=== PATIENT | female | born 1950 | race Hispanic/Latino ===

== ENCOUNTER 2018-01-10 09:32 | Inpatient (IN) | payer MEDICARE ==
--- NOTE | 2018-01-10 10:16 | ED PDOC ---
Arrival/HPI - History of Present Illness Time/Duration: < week Symptom Onset: Gradual Symptom Course: Worsening Activities at Onset: Light Context: Home - General Chief Complaint: Lower Extremity Problem/Injury Time Seen by Provider: 01/10/18 09:39 - History of Present Illness Narrative History of Present Illness (Text): 01/10/18 10:08 This is a 67 year old female with PMH of hypertension, hypertension, and chronic venous insufficiency presenting to the ER for 6 day history of worsening left leg pain and swelling. Patient has history of chronic insufficiency in both lower legs and has been seeing Dr. Romario DPM for wound care. Patient saw her nursing specialist, Dr. Partida, on Thursday and ultrasound of her legs was negative at that time. Today, patient states pain and swelling in left leg is getting worse. She denies recent infections and trauma to her legs. She denies CP, SOB, fevers, abdominal pain, nausea, vomiting , chills, recent sickness, sick contacts at home, and recent travel. (Enrrique Talamantes) Past Medical History - Provider Review Nursing Documentation Reviewed: Yes - Infectious Disease Hx of Infectious Diseases: None - Tetanus Immunization Tetanus Immunization: Unknown - Cardiac Hx Cardiac Disorders: Yes Hx Hypertension: Yes Hx Pacemaker: No Hx Peripheral Vascular Disease: Yes Other/Comment: HEMOSIDEROSIS BLE - Pulmonary Hx Respiratory Disorders: No - Neurological Hx Neurological Disorder: No - HEENT Hx HEENT Disorder: Yes Hx Cataracts: Yes - Renal Hx Renal Disorder: No - Endocrine/Metabolic Hx Endocrine Disorders: Yes Hx Diabetes Mellitus Type 2: Yes (PRE DIABETES, NO MEDICATIONS) Hx Hyperthyroidism: Yes - Hematological/Oncological Hx Blood Disorders: No Hx Blood Transfusions: No - Integumentary Hx Dermatological Disorder: Yes Hx Cellulitis: Yes (BLE) Other/Comment: CHRONIC NON HEALING WOUNDS BLE, HAS OPEN WOUNDS LEFT ANKLE AT PRESENT. - Musculoskeletal/Rheumatological Hx Musculoskeletal Disorders: Yes Hx Back Pain: Yes Hx Falls: No Hx Fractures: No Hx Osteoarthritis: Yes Other/Comment: SCIATICA - Gastrointestinal Hx Gastrointestinal Disorders: Yes Hx Gastritis: Yes Hx Gastroesophageal Reflux: Yes - Genitourinary/Gynecological Hx Genitourinary Disorders: No - Psychiatric Hx Psychophysiologic Disorder: No Hx Anxiety: No Hx Depression: No Hx Substance Use: No - Surgical History Hx Cataract Extraction: Yes Other/Comment: right ankle tendon, cataract - Anesthesia Hx Anesthesia: Yes Hx Anesthesia Reactions: No Hx Malignant Hyperthermia: No - Suicidal Assessment Feels Threatened In Home Enviroment: No Family/Social History - Physician Review Nursing Documentation Reviewed: Yes Family/Social History: Unknown Family HX Smoking Status: Never Smoked Hx Alcohol Use: No Hx Substance Use: No Hx Substance Use Treatment: No Allergies/Home Meds Allergies/Adverse Reactions: Allergies No Known Allergies Allergy (Verified 01/18/18 21:09) Review of Systems - Physician Review All systems were reviewed & negative as marked: Yes - Review of Systems Constitutional: Normal. absent: Fevers Eyes: Normal. absent: Vision Changes ENT: Normal. absent: Hearing Changes Respiratory: Normal. absent: SOB, Cough Cardiovascular: Normal. absent: Chest Pain, Palpitations Gastrointestinal: Normal. absent: Abdominal Pain, Vomiting Genitourinary Female: Normal Musculoskeletal: Normal Skin: Other (swelling and pain in left leg) Neurological: Normal. absent: Focal Weakness Endocrine: Normal Hemo/Lymphatic: Normal Psychiatric: Normal Physical Exam Vital Signs Reviewed: Yes Temperature: Afebrile Blood Pressure: Normal Pulse: Regular Respiratory Rate: Normal Appearance: Positive for: Well-Appearing, Non-Toxic, Comfortable Pain Distress: None Mental Status: Positive for: Alert and Oriented X 3 - Systems Exam Head: Present: Atraumatic, Normocephalic Pupils: Present: PERRL Extroacular Muscles: Present: EOMI Conjunctiva: Present: Normal Mouth: Present: Moist Mucous Membranes Neck: Present: Normal Range of Motion Respiratory/Chest: Present: Clear to Auscultation, Good Air Exchange. No: Respiratory Distress, Accessory Muscle Use Cardiovascular: Present: Regular Rate and Rhythm, Normal S1, S2. No: Murmurs Abdomen: No: Tenderness, Distention, Peritoneal Signs Back: Present: Normal Inspection Upper Extremity: Present: Normal Inspection. No: Cyanosis, Edema Lower Extremity: Present: Edema, Other (venous insifficency in both legs. left leg is tender, swollen and edematous with ulcerations present. pulse difficult to palpate in left leg due to swelling. pulse is +2 in right leg. Sensation is diminished in left leg compared to right. ) Neurological: Present: Speech Normal, Motor Func Grossly Intact Skin: Present: Warm, Dry, Normal Color. No: Rashes Psychiatric: Present: Alert, Oriented x 3, Normal Insight, Normal Concentration Vital Signs Temp Pulse Resp BP Pulse Ox 01/10/18 15:15 69 17 117/40 L 95 01/10/18 13:30 63 17 114/53 L 94 L 01/10/18 09:58 98.3 F 61 19 104/54 L 95 01/10/18 09:48 98.3 F 63 19 104/54 L 96 Medical Decision Making ED Course and Treatment: 01/10/18 10:19 Impression: This is a 67 year old female with PMH of hypertension, hypertension , and chronic venous insufficiency presenting to the ER for 6 day history of worsening left leg pain and swelling. Differential not limited to: Cellulitis vs Chronic venous insufficiency vs Compartment syndrome vs DVT Plan: Ultrasound is negative for DVT. D-dimer is elevated but patient is having no CP , SOB and vital signs are stable at this time. Will begin vancomycin drip for cellulitis. -Ultrasound of B/L lower extremities -CBC, CMP -D-dimer, PT, PTT -Cardiac ISO -VBG, lactate -Blood culture x2 -U/A, culture Progress: 01/10/18 12:10 (Enrrique Talamantes) 01/10/18 19:00 Patient seen and evaluated with medical support assistant. History supplemented by daughter who is at bedside and translated. Patient has UNILATERAL left leg swelling and redness with ulcer, drainage. Skin is warm. Exam NOT consistent with acute arterial injury. ULTRASOUND IS NEGATIVE FOR DVT. Suspect cellulitis for unilteral swelling and redness. Abdomen nontender with no lower abdominal palpable masses. SHE ADMANTLY DENIES ANY CHEST PAIN OR SHORTNESS OF BREATH WITH REPEATED EVALUATIONS. I communicated with PMD Dr. Strong of elevated Ddimer, although patient HAS NO CHEST PAIN, NO SHORTNESS OF BREATH, no dyspnea. Dr. Strong will follow-up with this ddimer result Patient has been admitted. She has had no chest pain or dyspnea at any point. EKG and chest xray will be ordered by Dr. Strong as needed. This was reviewed with her at 1845. (Favian Kraus) - Lab Interpretations Microbiology Results: Microbiology Results 01/10/18 10:27 Blood Blood Culture - Final NO GROWTH AFTER 5 DAYS 01/10/18 10:27 Blood Gram Stain - Final TEST NOT PERFORMED 01/10/18 10:27 Blood Blood Culture - Final NO GROWTH AFTER 5 DAYS 07/15/18 10:27 Blood Gram Stain - Final TEST NOT PERFORMED Lab Results: 01/10/18 10:27 01/10/18 10:27 Lab Results 01/10/18 10:27: Sodium 138, Chloride 98, Potassium 4.4, Carbon Dioxide 30, Anion Gap 15, BUN 18, Creatinine 0.8, Est GFR ( Amer) > 60, Est GFR (Non- Af Amer) > 60, Random Glucose 101, Calcium 8.8, Total Bilirubin 1.1, AST 66 H, ALT 89 H, Alkaline Phosphatase 166 H, Lactate Dehydrogenase 562, Total Creatine Kinase 47, Troponin I < 0.01, Total Protein 6.9, Albumin 3.6, Globulin 3.4, Albumin/Globulin Ratio 1.1 01/10/18 10:27: WBC 11.7 H, RBC 4.14, Hgb 11.0 L, Hct 32.3 L, MCV 78.0 L, MCH 26.6, MCHC 34.1, RDW 15.1 H, Plt Count 234, MPV 10.7, Gran % 80.5 H, Lymph % ( Auto) 10.2 L, Haines % (Auto) 7.9 H, Eos % (Auto) 1.1 L, Baso % (Auto) 0.3, Gran # 9.39 H, Lymph # (Auto) 1.2, Haines # (Auto) 0.9 H, Eos # (Auto) 0.1, Baso # ( Auto) 0.03 01/10/18 10:27: pO2 26 L, VBG pH 7.35, VBG pCO2 55.0, VBG HCO3 30.4 H, VBG Total CO2 32.1 H, VBG O2 Sat (Calc) 52.3, VBG Base Excess 3.4 H, VBG Potassium 4.3, Sodium 135.0, Chloride 101.0, Glucose 101, Lactate 1.1, FiO2 21.0, Venous Blood Potassium 4.3 01/10/18 10:27: PT 15.1 H, INR 1.31 H, APTT 25.5, D-Dimer, Quantitative 1910 H - RAD Interpretation Radiology Orders: 01/10/18 10:03 DUPLEX LOWER EXTRM VEIN BILAT [US] Stat - Medication Orders Current Medication Orders: Discontinued Medications Aspirin (Aspirin Chewable) 81 mg PO DAILY [facility] Last Admin: 01/18/18 10:15 Dose: 81 mg Diphenhydramine HCl (Benadryl) 25 mg PO HS PRN PRN Reason: Insomnia Last Admin: 01/17/18 23:54 Dose: 25 mg Docusate Sodium (Colace) 100 mg PO DAILY [facility] Last Admin: 01/18/18 10:16 Dose: 100 mg Last Bowel Movement Document 01/18/18 10:16 MCV (Rec: 01/18/18 10:16 MCV [id number]) Last Bowel Movement Last Bowel Movement 01/17/18 Enoxaparin Sodium (Lovenox) 40 mg SC DAILY [facility] PRN Reason: Protocol Last Admin: 01/18/18 10:26 Dose: 40 mg Subcutaneous Administrations Document 01/18/18 10:26 MCV (Rec: 01/18/18 10:26 MCV [id number]) Injection Site [facility] Injection Site Right Abdomen Charges for Administration # of Subcutaneous Administrations 1 Ferrous Sulfate (Feosol) 324 mg PO TID [facility] Last Admin: 01/18/18 17:02 Dose: 324 mg Furosemide (Lasix) 40 mg PO DAILY [facility] Last Admin: 01/18/18 10:23 Dose: Not Given Non-Admin Reason: BP Parameters Not Met [facility] Blood Pressure Document 01/18/18 10:23 MCV (Rec: 01/18/18 10:25 MCV [id number]) Blood Pressure Blood Pressure (100/60-150/90) 119/54 Home Med (Home Med) 1 unit PO [facility] Last Admin: 01/17/18 22:57 Dose: Hydromorphone HCl (Dilaudid) 0.5 mg IVP Q4H PRN PRN Reason: Pain, severe (8-10) Last Admin: 01/16/18 00:38 Dose: 0.5 mg MAR Pain Assessment Document 01/16/18 00:38 PCO (Rec: 01/16/18 00:39 PCO [id number]) Pain Reassessment Is this a pain reassessment? No Sleep Is patient sleeping during reassessment? No Presence of Pain Presence of Pain Yes Pain Scale Used Pain Scale Used Numeric Location Left, Right or Bilateral Left Pain Location Body Site Leg Description Description Intermittent Intensity of Pain at present 8 Acceptable Level of Pain 0/10 Variations/Patterns sharp Pain Behavior Moaning Facial Grimacing Aggravating Factors Changing Position Exercise/Activity Alleviating Factors/Management Medication Techniques Relaxation Techniques Inactivity Alleviating Factors Medication Effects of Pain can't sleep IVP Administration Document 01/16/18 00:38 PCO (Rec: 01/16/18 00:39 PCO [id number]) Charges for Administration # of IVP Administrations 1 Re-Assess: JACK Pain Assessment Document 01/16/18 01:38 PCO (Rec: 01/16/18 03:56 PCO [id number]) Pain Reassessment Is this a pain reassessment? Yes Sleep Is patient sleeping during reassessment? No Presence of Pain Presence of Pain No Hydromorphone HCl (Dilaudid) 0.5 mg IVP Q15MIN PRN PRN Reason: Pain, moderate (4-7) Stop: 01/14/18 09:50 Last Admin: 01/14/18 08:50 Dose: 0.5 mg Vancomycin HCl (Vancomycin 1gm) 1 gm in 250 mls @ 167 mls/hr IVPB STAT STA PRN Reason: Protocol Stop: 01/10/18 13:40 Last Admin: 01/10/18 12:32 Dose: 167 mls/hr eMAR Start Stop Document 01/10/18 12:32 MR (Rec: 01/10/18 12:32 MR [id number]) Intravenous Solution Start Date 01/10/18 Start Time 12:32 End Date 01/10/18 End time 14:02 Total Infusion Time 90 Vancomycin HCl (Vancomycin 1gm) 1 gm in 250 mls @ 167 mls/hr IVPB Q12H [facility] PRN Reason: Protocol Last Admin: 01/18/18 17:02 Dose: 167 mls/hr eMAR Start Stop Document 01/18/18 17:02 CV (Rec: 01/18/18 17:02 CV [id number]) Intravenous Solution Start Date 01/18/18 Start Time 17:02 Cefepime HCl (Maxipime 1gm) 1 gm in 100 mls @ 100 mls/hr IVPB Q12 [facility] PRN Reason: Protocol Last Admin: 01/18/18 10:15 Dose: 100 mls/hr eMAR Start Stop Document 01/18/18 10:15 MCV (Rec: 01/18/18 10:15 MCV [id number]) Intravenous Solution Start Date 01/18/18 Start Time 10:15 Dextrose/Sodium Chloride (Dextrose 5%/0.9% Ns 1000 Ml) 1,000 mls @ 115 mls/hr IV .Q8H42M [facility] Last Admin: 01/15/18 05:31 Dose: 115 mls/hr eMAR Start Stop Document 01/15/18 05:31 PCO (Rec: 01/15/18 05:31 PCO [id number]) Intravenous Solution Start Date 01/15/18 Start Time 04:00 End Date 01/15/18 End time 12:45 Total Infusion Time 525 Ibuprofen (Motrin Tab) 400 mg PO Q6H PRN PRN Reason: Fever >100.4 F Last Admin: 01/13/18 20:58 Dose: 400 mg MAR Pain/Vitals Document 01/13/18 20:58 PCO (Rec: 01/13/18 20:58 PCO [facility] [id number]) Pain Reassessment Is This A Pain ReAssessment? No Sleep Is patient sleeping during reassessment? No Presence of Pain Presence of Pain Yes Pain Scale Used Pain Scale Used Numeric Location Pain Location Body Copyist Description Intermittent Intensity 7 Scale Used Numeric Radiation Location no Pain Behavior Grasping Site Facial Grimacing Re-Assess: [facility] Pain/Vitals Document 01/13/18 21:58 PCO (Rec: 01/14/18 01:03 PCO [id number]) Pain Reassessment Is This A Pain ReAssessment? Yes Sleep Is patient sleeping during reassessment? No Presence of Pain Presence of Pain No Lisinopril (Zestril) 20 mg PO DAILY [facility] Last Admin: 01/18/18 10:27 Dose: Not Given Non-Admin Reason: BP Parameters Not Met [facility] Pulse and Blood Pressure Document 01/18/18 10:27 MCV (Rec: 01/18/18 10:27 MCV [facility] [id number]) Pulse Pulse Rate (60-90) 59 Blood Pressure Blood Pressure (100/60-150/90) 119/54 Methimazole (Tapazole) 5 mg PO MWF [facility] Last Admin: 01/18/18 10:16 Dose: 5 mg Metoprolol Tartrate (Lopressor) 50 mg PO HS [facility] Last Admin: 01/17/18 21:56 Dose: 50 mg MAR Pulse and Blood Pressure Document 01/17/18 21:56 BN (Rec: 01/17/18 21:56 BN [id number]) Pulse Pulse Rate (60-90) 63 Blood Pressure Blood Pressure (100/60-150/90) 138/81 Morphine Sulfate (Morphine) 4 mg IVP Q4H PRN PRN Reason: Pain, severe (8-10) Mupirocin (Bactroban Ointment) 0 gm TOP BID [facility] Last Admin: 01/18/18 17:25 Dose: 1 applic Ondansetron HCl (Zofran Inj) 4 mg IVP Q6H PRN PRN Reason: Nausea/Vomiting Last Admin: 01/14/18 20:05 Dose: 4 mg IVP Administration Document 01/14/18 20:05 PCO (Rec: 01/14/18 20:06 PCO [facility] [id number]) Charges for Administration # of IVP Administrations 1 Tramadol HCl (Ultram) 50 mg PO Q4H PRN PRN Reason: Pain, moderate (4-7) Last Admin: 01/18/18 05:49 Dose: 50 mg MAR Pain Assessment Document 01/18/18 05:49 BN (Rec: 01/18/18 05:50 BN [id number]) Pain Reassessment Is this a pain reassessment? No Presence of Pain Presence of Pain Yes Pain Scale Used Pain Scale Used Numeric Location Left, Right or Bilateral Right Pain Location Body Site Leg Description Description Constant Intensity of Pain at present 7 Pain Behavior Restlessness Alleviating Factors/Management Medication Techniques Alleviating Factors Medication - PA / [employer] / Resident Statement / has reviewed & agrees with the documentation as recorded. /DO has examined the patient and agrees with the treatment plan. Disposition/Present on Arrival - Present on Arrival Any Indicators Present on Arrival: No History of DVT/PE: No History of Uncontrolled Diabetes: No Urinary Catheter: No History of Decub. Ulcer: No History Surgical Site Infection Following: None - Disposition Have Diagnosis and Disposition been Completed?: Yes Disposition Time: 20:00 - Disposition Diagnosis: Cellulitis Disposition: HOSPITALIZED Condition: FAIR
[2018-01-10 10:34] LABS: BASO # 0.03 K/mm3 (0.0-2.0); BASO % 0.3 % (0.0-3.0); EOS # 0.1 (0.0-0.7); EOS % 1.1 % (1.5-5.0); GRAN # 9.39 (1.4-6.5); GRAN % 80.5 % (50.0-68.0); LYMPH # 1.2 (1.2-3.4); LYMPH % 10.2 % (22.0-35.0); MEAN CORPUSCULAR HEMOGLOBIN 26.6 pg (25.0-35.0); MEAN CORPUSCULAR HGB CONC 34.1 g/dl (31.0-37.0); MEAN PLATELET VOLUME 10.7 fl (7.0-11.0); MONO # 0.9 (0.1-0.6); MONO % 7.9 % (1.0-6.0); RBC 4.14 10^6/uL (3.5-6.1); RED CELL DISTRIBUTION WIDTH 15.1 % (11.5-14.5); WHITE BLOOD COUNT 11.7 10^3/ul (4.5-11.0)
[2018-01-10 10:36] LABS: VENOUS BLOOD GAS BASE EXCESS 3.4 mmol/L (0.0-2.0); VENOUS BLOOD GAS PO2 26 mm/Hg (30-55); VENOUS BLOOD PH 7.35 (7.32-7.43)
[2018-01-10 10:44] LABS: ALB/GLOB RATIO 1.1 (1.1-1.8); ALBUMIN 3.6 g/dL (3.0-4.8); ALT/SGPT 89 U/L (7-56); AST/SGOT 66 U/L (14-36); BLOOD UREA NITROGEN 18 mg/dL (7-21); CALCIUM 8.8 mg/dL (8.4-10.5); GFR AFRICAN-AMERICAN > 60; GFR NON-AFRICAN AMERICAN > 60
[2018-01-10 10:46] LABS: INR 1.31 (0.93-1.08); PARTIAL THROMBOPLASTIN TIME 25.5 Seconds (25.1-36.5); PROTHROMBIN TIME 15.1 SECONDS (9.4-12.5)
[2018-01-10 10:55] LABS: TROPONIN I < 0.01 ng/mL
[2018-01-10] MEDS ORDERED: Vancomycin 1gm in NS 250ml 1 GM/250 ML BAG IVPB STA (12:11)
--- NOTE | 2018-01-10 14:23 | US ---
HISTORY: Leg pain and swelling. Evaluate for DVT PHYSICIAN(S): Miguel Olivo MD. TECHNIQUE: Duplex sonography and color-flow Doppler with graded compression were used to evaluate the deep venous systems of both lower extremities. The exam is limited by body habitus and edema. FINDINGS: The visualized deep venous systems of both lower extremities are sonographically normal and compressible. Normal wave forms and augmentation are seen. There is no sonographic evidence for deep venous thrombosis in the visualized segments of both lower extremities. IMPRESSION: No sonographic evidence for deep venous thrombosis in the visualized segments of both lower extremities.
[2018-01-10 15:58] LABS: URINE BILIRUBIN NEGATIVE (NEGATIVE); URINE BLOOD LARGE (NEGATIVE); URINE GLUCOSE (UA) NEGATIVE (NEGATIVE); URINE LEUKOCYTE ESTERASE NEGATIVE Leu/uL (NEGATIVE); URINE PROTEIN NEGATIVE mg/dL (<30 mg/dL); URINE UROBILINOGEN 0.2 E.U./dL (<1 E.U./dL)
[2018-01-10 16:00] LABS: URINE APPEARANCE CLEAR (CLEAR); URINE COLOR YELLOW (YELLOW)
[2018-01-10 16:44] LABS: URINE BACTERIA MOD (NEG); URINE WBC 20 - 25 /hpf (0-6)
--- NOTE | 2018-01-10 17:07 | CP.PCM.CON ---
History of Present Illness - History of Present Illness History of Present Illness: Infectious Disease Consultation: January 10, 2018 67 year old female with PMH of hypertension and chronic venous insufficiency presenting to the ER for 6 day history of worsening left leg pain and swelling. Patient has history of chronic insufficiency in both lower legs and has been seeing Dr. Romario DPM for wound care. 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 Partida, on Thursday and ultrasound of her legs was negative at that time. Today , patient states pain and swelling in left leg was worsening. She denies recent infections and trauma to her legs. She denies CP, SOB, fevers, abdominal pain, nausea, vomiting, chills, recent sickness, sick contacts at home, and recent travel. PMHx: HTN, PVD, Cataracts, Sciatica, Hyperthyroidism. PSHx: Cataract surgery, right ankle tendon repair. Allergies: NKDA Social Hx: No tobacco, EtOH, or illicit drug use Medications: Pravastatin, Metoprolol, Tapazole, Lisinopril, Furosemide, Ciprofloxacin, ASA, Ncvvnconosmaug-Nvauoolxexdfgk-Czgo pill Family Hx: none given ROS: No fevers, chills, nausea, vomiting, diarrhea, headaches, dizziness, chest pain , abdominal pain, melena, hematuria, hematemesis, hematochezia, depression, anxiety Patient with left lower leg pain. Past Patient History - Infectious Disease Hx of Infectious Diseases: None - Tetanus Immunizations Tetanus Immunization: Unknown - Past Medical History & Family History Past Medical History?: Yes - Past Social History Smoking Status: Never Smoked - CARDIAC Hx Cardiac Disorders: Yes Hx Hypertension: Yes Hx Pacemaker: No Hx Peripheral Vascular Disease: Yes Other/Comment: HEMOSIDEROSIS BLE - PULMONARY Hx Respiratory Disorders: No - NEUROLOGICAL Hx Neurological Disorder: No - HEENT Hx HEENT Problems: Yes Hx Cataracts: Yes - RENAL Hx Chronic Kidney Disease: No - ENDOCRINE/METABOLIC Hx Endocrine Disorders: Yes Hx Diabetes Mellitus Type 2: Yes (PRE DIABETES, NO MEDICATIONS) Hx Hyperthyroidism: Yes - HEMATOLOGICAL/ONCOLOGICAL Hx Blood Disorders: No Hx Blood Transfusions: No - INTEGUMENTARY Hx Dermatological Problems: Yes Hx Cellulitis: Yes (BLE) Other/Comment: CHRONIC NON HEALING WOUNDS BLE, HAS OPEN WOUNDS LEFT ANKLE AT PRESENT. - MUSCULOSKELETAL/RHEUMATOLOGICAL Hx Musculoskeletal Disorders: Yes Hx Back Pain: Yes Hx Falls: No Hx Fractures: No Hx Osteoarthritis: Yes Other/Comment: SCIATICA - GASTROINTESTINAL Hx Gastrointestinal Disorders: Yes Hx Gastritis: Yes Hx Gastroesophageal Reflux: Yes - GENITOURINARY/GYNECOLOGICAL Hx Genitourinary Disorders: No - PSYCHIATRIC Hx Psychophysiologic Disorder: No Hx Anxiety: No Hx Depression: No Hx Substance Use: No - SURGICAL HISTORY Hx Cataract Extraction: Yes Other/Comment: right ankle tendon, cataract - ANESTHESIA Hx Anesthesia: Yes Hx Anesthesia Reactions: No Hx Malignant Hyperthermia: No Meds Allergies/Adverse Reactions: Allergies Allergy/AdvReac Type Severity Reaction Status Date / Time No Known Allergies Allergy Verified 01/10/18 10:01 Physical Exam - Constitutional Appears: Non-toxic, No Acute Distress, Chronically Ill - Head Exam Head Exam: ATRAUMATIC, NORMOCEPHALIC - Eye Exam Eye Exam: EOMI, PERRL Pupil Exam: NORMAL ACCOMODATION, PERRL - ENT Exam ENT Exam: Mucous Membranes Moist, Normal External Ear Exam, TM's Normal Bilaterally - Neck Exam Neck exam: Positive for: Full Rom, Normal Inspection - Respiratory Exam Respiratory Exam: Clear to Auscultation Bilateral, NORMAL BREATHING PATTERN. absent: Rales, Rhonchi, Wheezes - Cardiovascular Exam Cardiovascular Exam: REGULAR RHYTHM, RRR, +S1, +S2 - GI/Abdominal Exam GI & Abdominal Exam: Normal Bowel Sounds, Soft. absent: Distended, Tenderness - Extremities Exam Extremities exam: Positive for: full ROM, joint swelling, pedal edema Additional comments: left leg is tender, swollen, erythematous, and edematous with ulcerations present. pulse difficult to palpate in left leg due to swelling. pulse is +2 in right leg. Sensation is diminished in left leg compared to right. Still with chronic venous stasis changes to both legs that started 4 years ago. Elephantiasis changes to the anterior and lateral portions of lower legs bilaterally and ankles. - Neurological Exam Neurological exam: Alert, CN II-XII Intact, Oriented x3 - Psychiatric Exam Psychiatric exam: Normal Affect, Normal Mood - Skin Skin Exam: Erythema Additional comments: left leg is tender, swollen, erythematous, and edematous with ulcerations present. pulse difficult to palpate in left leg due to swelling. pulse is +2 in right leg. Sensation is diminished in left leg compared to right Results - Vital Signs Recent Vital Signs: Last Vital Signs Temp 98.3 F 07/15/18 09:58 Pulse 69 01/10/18 16:23 Resp 17 01/10/18 16:23 BP 117/40 L 01/10/18 16:23 Pulse Ox 95 01/10/18 16:23 - Labs Result Diagrams: 01/10/18 10:27 01/10/18 10:27 Labs: Laboratory Results - last 24 hr 01/10/18 15:15 Urine Color Yellow Urine Appearance Clear Urine pH 6.0 Ur Specific Center 1.020 Urine Protein Negative Urine Glucose (UA) Negative Urine Ketones Negative Urine Blood Large H Urine Nitrate Negative Urine Bilirubin Negative Urine Urobilinogen 0.2 Ur Leukocyte Esterase Negative Urine RBC 2 - 5 Urine WBC 20 - 25 Ur Epithelial Cells 1 - 3 Urine Bacteria Mod Assessment & Plan - Assessment and Plan (Free Text) Assessment: 67 yo female with PVD of the lower extremities and history of HTN presenting with erythema, edema, pain, and tenderness to the left leg with open ulcerations and swelling of the same leg. Given one dose of Vancomycin IV. Supportive care. Will continue with Vancomycin and Cefepime IV at this time. No history of renal insufficiency. Right ankle tendon repair in April 2017. Outward signs of peripheral vascular disease. Thank you for allowing me to participate in the care of the patient, we will follow with you.
[2018-01-10 17:37] VITALS: BMI 34.3
[2018-01-10] MEDS: Vancomycin 1gm in NS 250ml 1 GM/250 ML BAG IVPB SCH (18:10)
[2018-01-10] MEDS ORDERED: Iodixanol 320 MG/ML 100 ML BOTTLE IV ONE (20:01)
[2018-01-10] MEDS: Cefepime 1gm in NS 100ml 1 GM/100 ML BAG IVPB SCH (22:21)
[2018-01-10] MEDS: PRAVASTATIN 40MG PO SCH (22:33)
[2018-01-11] MEDS: Vancomycin 1gm in NS 250ml 1 GM/250 ML BAG IVPB SCH ×3 (06:04→18:30)
[2018-01-11 07:14] LABS: HEMOGLOBIN 10.7 g/dL (12.0-16.0); MEAN CELL VOLUME 77.9 fl (80.0-105.0); MEAN CORPUSCULAR HEMOGLOBIN 26.2 pg (25.0-35.0); MEAN CORPUSCULAR HGB CONC 33.6 g/dl (31.0-37.0); MEAN PLATELET VOLUME 11.2 fl (7.0-11.0); RBC 4.08 10^6/uL (3.5-6.1); RED CELL DISTRIBUTION WIDTH 15.1 % (11.5-14.5); WHITE BLOOD COUNT 11.9 10^3/ul (4.5-11.0)
[2018-01-11 07:35] LABS: BLOOD UREA NITROGEN 17 mg/dL (7-21); CALCIUM 8.1 mg/dL (8.4-10.5); GFR AFRICAN-AMERICAN > 60; GFR NON-AFRICAN AMERICAN > 60; HDL CHOLESTEROL 29 mg/dL (29-60)
[2018-01-11 07:45] LABS: LDL CHOLESTEROL 73 mg/dL (0-129)
[2018-01-11 07:48] LABS: IRON 27 ug/dL (45-180)
[2018-01-11 07:58] LABS: % IRON SATURATION 13 % (20-55); TOTAL IRON BINDING CAPACITY 218 ug/dL (265-497)
--- NOTE | 2018-01-11 08:24 | HP ---
CHIEF COMPLAINTS: Left leg pain and swelling. HISTORY OF PRESENT ILLNESS: Ms. Xenia Hall, 67-year-old female with past medical history of hypertension, chronic venous insufficiency. Came to the emergency room for 6 days' history of worsening left leg pain and swelling. The patient has history of chronic insufficiency in the both lower legs and has been seen by Dr. Fischer for wound care. The patient saw her english professor, Dr. Partida on Thursday and ultrasound of her legs was negative. Today, the patient states the pain and swelling of the left leg worsening. She denies recent infection to her legs. She denies chest pain, shortness of breath, fever, abdominal pain, nausea, vomiting, chills, recent sick contact at home and recent travel. PAST MEDICAL HISTORY: Hypertension, PVD, cataracts, sciatica, hyperthyroidism, cataract surgery, right ankle tendon repair. ALLERGIES: THE PATIENT IS NOT ALLERGIC WITH ANY MEDICATIONS. HABITS: No smoking. No drugs. No ethanol. HOME MEDICATIONS: Pravastatin, metoprolol, Tapazole, lisinopril, furosemide, ciprofloxacin, aspirin, dihydrocodeine, acetaminophen. FAMILY HISTORY: Father and mother, noncontributory. REVIEW OF SYSTEMS: The patient was seen and examined on the bedside, looking comfortable. No nausea, vomiting, diarrhea. No hematuria or hematochezia. Prema Strong MD
--- NOTE | 2018-01-11 08:51 | RAD ---
Date of service: 01/10/2018 HISTORY: medical clearance COMPARISON: 06/30/2014 FINDINGS: LUNGS: No active pulmonary disease. PLEURA: No significant pleural effusion identified, no pneumothorax apparent. CARDIOVASCULAR: Mild cardiomegaly and mild vascular congestion OSSEOUS STRUCTURES: No significant abnormalities. VISUALIZED UPPER ABDOMEN: Normal. OTHER FINDINGS: None. IMPRESSION: Mild cardiomegaly and mild vascular congestion
[2018-01-11] MEDS: Cefepime 1gm in NS 100ml 1 GM/100 ML BAG IVPB SCH ×2 (10:10→21:48)
[2018-01-11] MEDS: methIMAzole 5 MG TAB PO SCH (10:10)
--- NOTE | 2018-01-11 10:17 | CARD ---
APPROVED REPORT Date of service: 01/10/2018 EKG Measurement Heart [id number] <Conclusion> Normal sinus rhythm Possible Left atrial enlargement Borderline ECG
--- NOTE | 2018-01-11 10:27 | CP.PCM.CON ---
History of Present Illness - History of Present Illness History of Present Illness: CC: Leg pain HPI: 67 year old female with chronic medical problsm 1. HTN is chronic and stable on metoprolol, lisinopril and lasix 2. Hyperthryoid on tapazol 3. Venous insufficiency now decompensated with cellulitis on top of severe venous statsis dermatitis Severe pain in left leg, denies constitutional symptoms. Review of Systems - Review of Systems All systems: reviewed and no additional remarkable complaints except Past Patient History - Infectious Disease Hx of Infectious Diseases: None - Tetanus Immunizations Tetanus Immunization: Unknown - Past Medical History & Family History Past Medical History?: Yes - Past Social History Smoking Status: Never Smoked - CARDIAC Hx Cardiac Disorders: Yes Hx Hypertension: Yes Hx Pacemaker: No Hx Peripheral Vascular Disease: Yes Other/Comment: HEMOSIDEROSIS BLE - PULMONARY Hx Respiratory Disorders: No - NEUROLOGICAL Hx Neurological Disorder: No - HEENT Hx HEENT Problems: Yes Hx Cataracts: Yes - RENAL Hx Chronic Kidney Disease: No - ENDOCRINE/METABOLIC Hx Endocrine Disorders: Yes Hx Diabetes Mellitus Type 2: Yes (PRE DIABETES, NO MEDICATIONS) Hx Hyperthyroidism: Yes - HEMATOLOGICAL/ONCOLOGICAL Hx Blood Disorders: No Hx Blood Transfusions: No - INTEGUMENTARY Hx Dermatological Problems: Yes Hx Cellulitis: Yes (BLE) Other/Comment: CHRONIC NON HEALING WOUNDS BLE, HAS OPEN WOUNDS LEFT ANKLE AT PRESENT. - MUSCULOSKELETAL/RHEUMATOLOGICAL Hx Musculoskeletal Disorders: Yes Hx Back Pain: Yes Hx Falls: No Hx Fractures: No Hx Osteoarthritis: Yes Other/Comment: SCIATICA - GASTROINTESTINAL Hx Gastrointestinal Disorders: Yes Hx Gastritis: Yes Hx Gastroesophageal Reflux: Yes - GENITOURINARY/GYNECOLOGICAL Hx Genitourinary Disorders: No - PSYCHIATRIC Hx Psychophysiologic Disorder: No Hx Anxiety: No Hx Depression: No Hx Substance Use: No - SURGICAL HISTORY Hx Cataract Extraction: Yes Other/Comment: right ankle tendon, cataract - ANESTHESIA Hx Anesthesia: Yes Hx Anesthesia Reactions: No Hx Malignant Hyperthermia: No Meds Allergies/Adverse Reactions: Allergies Allergy/AdvReac Type Severity Reaction Status Date / Time No Known Allergies Allergy Verified 01/10/18 10:01 - Medications Medications: Current Medications Aspirin (Aspirin Chewable) 81 mg PO DAILY [facility] Furosemide (Lasix) 40 mg PO DAILY [facility] Last Admin: 01/11/18 10:10 Dose: Not Given Home Med (Home Med) 1 unit PO HS [facility] Last Admin: 07/15/18 22:33 Dose: Not Given Vancomycin HCl (Vancomycin 1gm) 1 gm in 250 mls @ 167 mls/hr IVPB Q12H [facility] PRN Reason: Protocol Last Admin: 01/11/18 06:04 Dose: 167 mls/hr Cefepime HCl (Maxipime 1gm) 1 gm in 100 mls @ 100 mls/hr IVPB Q12 [facility] PRN Reason: Protocol Last Admin: 01/11/18 10:10 Dose: 100 mls/hr Ibuprofen (Motrin Tab) 400 mg PO Q6H PRN PRN Reason: Fever >100.4 F Last Admin: 01/10/18 22:36 Dose: 400 mg Lisinopril (Zestril) 20 mg PO DAILY [facility] Last Admin: 01/11/18 10:10 Dose: Not Given Methimazole (Tapazole) 5 mg PO MWF [facility] Last Admin: 01/11/18 10:10 Dose: 5 mg Metoprolol Tartrate (Lopressor) 50 mg PO HS [facility] Last Admin: 01/10/18 22:21 Dose: 50 mg Physical Exam - Constitutional Appears: Well, Non-toxic - Head Exam Head Exam: ATRAUMATIC, NORMAL INSPECTION - Eye Exam Eye Exam: PERRL. absent: Scleral icterus - ENT Exam ENT Exam: Mucous Membranes Moist, Normal External Ear Exam - Neck Exam Neck exam: Positive for: Normal Inspection. Negative for: Tenderness - Respiratory Exam Respiratory Exam: Clear to Auscultation Bilateral, NORMAL BREATHING PATTERN - Cardiovascular Exam Cardiovascular Exam: REGULAR RHYTHM, RRR, +S1, +S2. absent: JVD - GI/Abdominal Exam GI & Abdominal Exam: Normal Bowel Sounds. absent: Organomegaly - Extremities Exam Additional comments: severe swelling and erythema of left lower extremity, severe lipodermosclerosis and healed venous stasis ulcers Severe stasis dermatitis in right lower extremity. Results - Vital Signs Recent Vital Signs: Last Vital Signs Temp 98.5 F 01/11/18 06:00 Pulse 60 01/11/18 06:00 Resp 20 01/11/18 06:00 BP 114/50 L 01/11/18 06:00 Pulse Ox 96 01/11/18 06:00 - Labs Result Diagrams: 01/11/18 06:45 01/11/18 06:45 Labs: Laboratory Results - last 24 hr 01/10/18 01/11/18 01/11/18 15:15 06:45 06:45 WBC RBC Hgb Hct MCV MCH MCHC RDW Plt Count MPV Sodium 137 Potassium 4.5 Chloride 101 Carbon Dioxide 28 Anion Gap 13 BUN 17 Creatinine 0.7 Est GFR ( Amer) > 60 Est GFR (Non-Af Amer) > 60 Random Glucose 100 Calcium 8.1 L Iron 27 L TIBC 218 L % Saturation 13 L Triglycerides 90 Cholesterol 135 LDL Cholesterol Direct 73 HDL Cholesterol 29 TSH 3rd Generation Urine Color Yellow Urine Appearance Clear Urine pH 6.0 Ur Specific [place] 1.020 Urine Protein Negative Urine Glucose (UA) Negative Urine Ketones Negative Urine Blood Large H Urine Nitrate Negative Urine Bilirubin Negative Urine Urobilinogen 0.2 Ur Leukocyte Esterase Negative Urine RBC 2 - 5 Urine WBC 20 - 25 Ur Epithelial Cells 1 - 3 Urine Bacteria Mod 01/11/18 01/11/18 06:45 06:45 WBC 11.9 H RBC 4.08 Hgb 10.7 L Hct 31.8 L MCV 77.9 L MCH 26.2 MCHC 33.6 RDW 15.1 H Plt Count 242 MPV 11.2 H Sodium Potassium Chloride Carbon Dioxide Anion Gap BUN Creatinine Est GFR ( Amer) Est GFR (Non-Af Amer) Random Glucose Calcium Iron TIBC % Saturation Triglycerides Cholesterol LDL Cholesterol Direct HDL Cholesterol TSH 3rd Generation 1.97 Urine Color Urine Appearance Urine pH Ur Specific [place] Urine Protein Urine Glucose (UA) Urine Ketones Urine Blood Urine Nitrate Urine Bilirubin Urine Urobilinogen Ur Leukocyte Esterase Urine RBC Urine WBC Ur Epithelial Cells Urine Bacteria - EKG Data EKG Interpreted by: Myself EKG shows normal: Sinus rhythm - Imaging and Cardiology Venous US Status: Image reviewed by me (No evidence of DVT, venous insufficiency not properly assesed. ) Assessment & Plan - Assessment and Plan (Free Text) Assessment: 67 year old female with Severe sepsis in the setting of acute cellulitis on broad spectrum IV abx, ID consult appreciated, Needs UNNA BOOT to compress edema to assist in wound healing. HTN is chronic and stable on metoprolol, lisinopril and lasix Venous insufficiency chronic and now exacerbated, snf she has bilaterally insufficiency in the greater saphenous veins which will benefit from closure. I discussed this with patient in son that we will address this after acute infection has subsided. - Date & Time Date: 01/11/18 Time: 10:32
--- NOTE | 2018-01-11 10:29 | CT ---
Date of service: 01/10/2018 PROCEDURE: CT Chest with contrast (Pulmonary Angiogram) HISTORY: d/ dimer heigh COMPARISON: None available. TECHNIQUE: Axial computed tomography images were obtained of the chest in the pulmonary arterial phase of enhancement. Coronal and sagittal reformatted images were created and reviewed. Intravenous contrast dose: 100 cc of Visipaque Radiation dose: Total exam DLP = 407 mGy-cm. This CT exam was performed using one or more of the following dose reduction techniques: Automated exposure control, adjustment of the mA and/or kV according to patient size, and/or use of iterative reconstruction technique. FINDINGS: PULMONARY ARTERIES: There is no evidence of pulmonary embolism. The pulmonary arteries are dilated suggesting pulmonary hypertension. Clinical correlation is suggested AORTA: No acute findings. No thoracic aortic aneurysm. LUNGS: Unremarkable. No nodule, mass or pulmonary consolidation. PLEURAL SPACES: Unremarkable. No effusion or pneumothorax. HEART: Unremarkable. No cardiomegaly. No significant pericardial effusion. LYMPH NODES: No lymphadenopathy. BONES, CHEST WALL: Unremarkable. No fracture or destructive lesion OTHER FINDINGS: The report concurs with the preliminary [facility] report IMPRESSION: There is no evidence of pulmonary embolism. The pulmonary arteries are dilated suggesting pulmonary hypertension. Clinical correlation is suggested
--- NOTE | 2018-01-11 12:35 | CP.PCM.CON ---
Addendum entered and electronically signed by Warren Riley DPM 01/11/18 17:25 : Re-evaluated patient with Dr. Grayson at bedside, family member at bedside. Seen resting comfortably in bed, in NAD, and AA0x3. Patient reports that she was told she had a DVT in the past to left lower extremity. Reports that she has surgical venous laserectomy to the left lower extremity as well. Has been seeing outside operations supervisor who has been cleaning her ulcerations and dressing her left leg. Reports operations supervisor told her to wear compression but reports the compression is too tight and so she doesn't wear them. Assessment: 67 y.o female with PMHx of HTN, chronic venous insufficiency with 1 ) post thrombotic syndrome left lower extremity 2) venous stasis dermatitis left lower extremity 3) cellulitis to left lower extremity Plan: Educated patient on benefits of compression stocking Please apply warm compression to left lower extremity q 12 Ordered Bactroban. To be applied to the lower extremity twice daily Will apply SVEN compression with tubigrip tomorrow by podiatry. To be taken off at night and reapplied every morning. Thank you Original Note: <Warren Riley - Last Filed: 01/11/18 14:17> History of Present Illness - History of Present Illness History of Present Illness: Podiatry Consult Note- Dr. Grayson 67 y.o female with PMHx of HTN, chronic venous insufficiency seen and evaluated at bedside for left lower extremity pain with swelling with redness. Patient reports that she sees her operations supervisor Dr. Doss every 1-2 weeks for examination. Reports that in the last week, she started having more pain with redness to the left lower extremity. Reports being ambulatory. Denies any recent trauma/fall. Denies nausea, fever, shortness of breath, chest pains or chills. Past Patient History - Infectious Disease Hx of Infectious Diseases: None - Tetanus Immunizations Tetanus Immunization: Unknown - Past Medical History & Family History Past Medical History?: Yes - Past Social History Smoking Status: Never Smoked - CARDIAC Hx Cardiac Disorders: Yes Hx Hypertension: Yes Hx Pacemaker: No Hx Peripheral Vascular Disease: Yes Other/Comment: HEMOSIDEROSIS BLE - PULMONARY Hx Respiratory Disorders: No - NEUROLOGICAL Hx Neurological Disorder: No - HEENT Hx HEENT Problems: Yes Hx Cataracts: Yes - RENAL Hx Chronic Kidney Disease: No - ENDOCRINE/METABOLIC Hx Endocrine Disorders: Yes Hx Diabetes Mellitus Type 2: Yes (PRE DIABETES, NO MEDICATIONS) Hx Hyperthyroidism: Yes - HEMATOLOGICAL/ONCOLOGICAL Hx Blood Disorders: No Hx Blood Transfusions: No - INTEGUMENTARY Hx Dermatological Problems: Yes Hx Cellulitis: Yes (BLE) Other/Comment: CHRONIC NON HEALING WOUNDS BLE, HAS OPEN WOUNDS LEFT ANKLE AT PRESENT. - MUSCULOSKELETAL/RHEUMATOLOGICAL Hx Musculoskeletal Disorders: Yes Hx Back Pain: Yes Hx Falls: No Hx Fractures: No Hx Osteoarthritis: Yes Other/Comment: SCIATICA - GASTROINTESTINAL Hx Gastrointestinal Disorders: Yes Hx Gastritis: Yes Hx Gastroesophageal Reflux: Yes - GENITOURINARY/GYNECOLOGICAL Hx Genitourinary Disorders: No - PSYCHIATRIC Hx Psychophysiologic Disorder: No Hx Anxiety: No Hx Depression: No Hx Substance Use: No - SURGICAL HISTORY Hx Cataract Extraction: Yes Other/Comment: right ankle tendon, cataract - ANESTHESIA Hx Anesthesia: Yes Hx Anesthesia Reactions: No Hx Malignant Hyperthermia: No Meds Allergies/Adverse Reactions: Allergies Allergy/AdvReac Type Severity Reaction Status Date / Time No Known Allergies Allergy Verified 01/10/18 10:01 - Medications Medications: Current Medications Aspirin (Aspirin Chewable) 81 mg PO DAILY [facility] Last Admin: 01/11/18 10:10 Dose: 81 mg Furosemide (Lasix) 40 mg PO DAILY [facility] Last Admin: 01/11/18 10:10 Dose: Not Given Home Med (Home Med) 1 unit PO HS [facility] Last Admin: 01/10/18 22:33 Dose: Not Given Vancomycin HCl (Vancomycin 1gm) 1 gm in 250 mls @ 167 mls/hr IVPB Q12H [facility] PRN Reason: Protocol Last Admin: 01/11/18 06:04 Dose: 167 mls/hr Cefepime HCl (Maxipime 1gm) 1 gm in 100 mls @ 100 mls/hr IVPB Q12 [facility] PRN Reason: Protocol Last Admin: 01/11/18 10:10 Dose: 100 mls/hr Ibuprofen (Motrin Tab) 400 mg PO Q6H PRN PRN Reason: Fever >100.4 F Last Admin: 01/11/18 11:28 Dose: 400 mg Lisinopril (Zestril) 20 mg PO DAILY [facility] Last Admin: 01/11/18 10:10 Dose: Not Given Methimazole (Tapazole) 5 mg PO MWF [facility] Last Admin: 01/11/18 10:10 Dose: 5 mg Metoprolol Tartrate (Lopressor) 50 mg PO HS [facility] Last Admin: 01/10/18 22:21 Dose: 50 mg Physical Exam - Constitutional Appears: Well, Non-toxic, No Acute Distress - Extremities Exam Extremities exam: Negative for: calf tenderness Additional comments: left lower extremity focused examination: VASC: DP and PT 2/4 bilaterally, CFT < 3 seconds to the digits, temperature gradient is warm to warm, swelling noted to the entire left lower extremity ORTHO: pain with palpation to the entire left lower extremity, AROM to digits 1- 5 presents, MM is 4/5 with guarding noted to the lower extremity in all four compartments: dorsiflexion, plantarflexion, inversion and eversion, able to perform ankle ROM with guarding and pain NEURO: gross and protective sensation intact DERM: venous stasis dermatitis noted to the entire lower extremity with diffuse erythema noted to entire left lower extremity, no active drainage noted at bedside, tiny multiple diffuse old lesions with scarring and xerosis noted to lower extremity. No appreciable open lesions noted. No abscess or fluctanance noted to the lower extremity. - Neurological Exam Neurological exam: Alert, Oriented x3 - Psychiatric Exam Psychiatric exam: Normal Affect, Normal Mood Results - Vital Signs Recent Vital Signs: Last Vital Signs Temp 98.5 F 01/11/18 06:00 Pulse 60 01/11/18 06:00 Resp 20 01/11/18 06:00 BP 114/50 L 01/11/18 06:00 Pulse Ox 96 01/11/18 06:00 - Labs Result Diagrams: 01/11/18 06:45 01/11/18 06:45 Labs: Laboratory Results - last 24 hr 01/10/18 01/11/18 01/11/18 15:15 06:45 06:45 WBC RBC Hgb Hct MCV MCH MCHC RDW Plt Count MPV Sodium 137 Potassium 4.5 Chloride 101 Carbon Dioxide 28 Anion Gap 13 BUN 17 Creatinine 0.7 Est GFR ( Amer) > 60 Est GFR (Non-Af Amer) > 60 Random Glucose 100 Hemoglobin A1c Calcium 8.1 L Iron 27 L TIBC 218 L % Saturation 13 L Triglycerides 90 Cholesterol 135 LDL Cholesterol Direct 73 HDL Cholesterol 29 TSH 3rd Generation Urine Color Yellow Urine Appearance Clear Urine pH 6.0 Ur Specific [place] 1.020 Urine Protein Negative Urine Glucose (UA) Negative Urine Ketones Negative Urine Blood Large H Urine Nitrate Negative Urine Bilirubin Negative Urine Urobilinogen 0.2 Ur Leukocyte Esterase Negative Urine RBC 2 - 5 Urine WBC 20 - 25 Ur Epithelial Cells 1 - 3 Urine Bacteria Mod 01/11/18 01/11/18 01/11/18 06:45 06:45 06:45 WBC 11.9 H RBC 4.08 Hgb 10.7 L Hct 31.8 L MCV 77.9 L MCH 26.2 MCHC 33.6 RDW 15.1 H Plt Count 242 MPV 11.2 H Sodium Potassium Chloride Carbon Dioxide Anion Gap BUN Creatinine Est GFR ( Amer) Est GFR (Non-Af Amer) Random Glucose Hemoglobin A1c 6.0 Calcium Iron TIBC % Saturation Triglycerides Cholesterol LDL Cholesterol Direct HDL Cholesterol TSH 3rd Generation 1.97 Urine Color Urine Appearance Urine pH Ur Specific [place] Urine Protein Urine Glucose (UA) Urine Ketones Urine Blood Urine Nitrate Urine Bilirubin Urine Urobilinogen Ur Leukocyte Esterase Urine RBC Urine WBC Ur Epithelial Cells Urine Bacteria Assessment & Plan - Assessment and Plan (Free Text) Assessment: 67 y.o female with PMHx of HTN, chronic venous insufficiency with venous stasis dermatitis and cellulitis to left lower extremity Plan: Patient seen and examined Discussed plan in detail with attending Dr. Grayson Labs, vitals, chart reviewed- afebrile, WBC=11.9 c/w IV abx per ID Will apply SVEN compression to lower extremity Please apply compressions twice daily to the left lower extremity Dispense surgical shoe WBAT in surgical shoe to LE bilaterally Duplex U/S on 01/10/18 (-) DVT to lower extremity bilaterally Will hold off on UNNA boot to the left lower extremity at this time, thank you Will continue to follow patient while in house Thank you for the consult <Sadie Grayson - Last Filed: 01/17/18 16:45> Meds - Medications Medications: Current Medications Aspirin (Aspirin Chewable) 81 mg PO DAILY [facility] Last Admin: 01/17/18 09:51 Dose: 81 mg Diphenhydramine HCl (Benadryl) 25 mg PO HS PRN PRN Reason: Insomnia Last Admin: 01/13/18 00:02 Dose: 25 mg Docusate Sodium (Colace) 100 mg PO DAILY [facility] Last Admin: 01/17/18 09:51 Dose: 100 mg Enoxaparin Sodium (Lovenox) 40 mg SC DAILY [facility] PRN Reason: Protocol Ferrous Sulfate (Feosol) 324 mg PO TID [facility] Last Admin: 01/17/18 15:00 Dose: 324 mg Furosemide (Lasix) 40 mg PO DAILY [facility] Last Admin: 01/17/18 09:50 Dose: 40 mg Home Med (Home Med) 1 unit PO [facility] Last Admin: 01/16/18 22:05 Dose: Not Given Vancomycin HCl (Vancomycin 1gm) 1 gm in 250 mls @ 167 mls/hr IVPB Q12H [facility] PRN Reason: Protocol Last Admin: 01/17/18 05:16 Dose: 167 mls/hr Cefepime HCl (Maxipime 1gm) 1 gm in 100 mls @ 100 mls/hr IVPB Q12 [facility] PRN Reason: Protocol Last Admin: 01/17/18 09:51 Dose: 100 mls/hr Ibuprofen (Motrin Tab) 400 mg PO Q6H PRN PRN Reason: Fever >100.4 F Last Admin: 01/13/18 20:58 Dose: 400 mg Lisinopril (Zestril) 20 mg PO DAILY [facility] Last Admin: 01/17/18 09:50 Dose: 20 mg Methimazole (Tapazole) 5 mg PO [facility] Last Admin: 01/15/18 11:12 Dose: 5 mg Metoprolol Tartrate (Lopressor) 50 mg PO [facility] Last Admin: 01/16/18 22:12 Dose: Not Given Morphine Sulfate (Morphine) 4 mg IVP Q4H PRN PRN Reason: Pain, severe (8-10) Mupirocin (Bactroban Ointment) 0 gm TOP BID [facility] Last Admin: 01/17/18 11:00 Dose: 1 applic Ondansetron HCl (Zofran Inj) 4 mg IVP Q6H PRN PRN Reason: Nausea/Vomiting Last Admin: 01/14/18 20:05 Dose: 4 mg Tramadol HCl (Ultram) 50 mg PO Q4H PRN PRN Reason: Pain, moderate (4-7) Last Admin: 01/16/18 22:13 Dose: 50 mg Results - Vital Signs Recent Vital Signs: Last Vital Signs Temp 99.7 F H 01/17/18 14:00 Pulse 64 01/17/18 14:00 Resp 18 01/17/18 14:00 BP 148/61 01/17/18 14:00 Pulse Ox 94 L 01/17/18 14:00 - Labs Result Diagrams: 01/17/18 07:00 01/17/18 07:00 Labs: Laboratory Results - last 24 hr 01/17/18 01/17/18 07:00 07:00 WBC 10.4 RBC 3.83 Hgb 9.8 L Hct 30.1 L MCV 78.6 L MCH 25.6 MCHC 32.6 RDW 15.1 H Plt Count 323 MPV 10.2 Gran % 70.6 H Lymph % (Auto) 17.2 L Gem % (Auto) 8.5 H Eos % (Auto) 3.4 Baso % (Auto) 0.3 Gran # 7.37 H Lymph # (Auto) 1.8 Gem # (Auto) 0.9 H Eos # (Auto) 0.4 Baso # (Auto) 0.03 Sodium 137 Potassium 4.1 Chloride 97 L Carbon Dioxide 34 H Anion Gap 11 BUN 11 Creatinine 0.5 L Est GFR ( Amer) > 60 Est GFR (Non-Af Amer) > 60 Random Glucose 93 Calcium 8.2 L Phosphorus 3.1 Magnesium 2.0 Attending/Attestation - Attestation I have personally seen and examined this patient.: Yes I have fully participated in the care of the patient.: Yes I have reviewed all pertinent clinical information: Yes
[2018-01-11 15:35] LABS: FOLATE 14.4 ng/mL
[2018-01-11] MEDS: Mupirocin 2% Ointment 15 GM TUBE TOP SCH (18:40)
--- NOTE | 2018-01-11 19:33 | CP.PCM.PN ---
Subjective - Date & Time of Evaluation Date of Evaluation: 01/11/18 Time of Evaluation: 18:00 - Subjective Subjective: Infectious Disease Follow Up: January 11, 2018 67 year old female with PMH of hypertension and chronic venous insufficiency presenting to the ER for 6 day history of worsening left leg pain and swelling. Patient has history of chronic insufficiency in both lower legs and has been seeing Dr. Romario DPM for wound care. Patient saw her mailing machine helper, Dr. Partida, on Thursday and ultrasound of her legs was negative at that time. Today , patient states pain and swelling in left leg was worsening. She denies recent infections and trauma to her legs. She denies CP, SOB, fevers, abdominal pain, nausea, vomiting, chills, recent sickness, sick contacts at home, and recent travel. The patient apparently also had a DVT to left lower extremity in the past treated with surgical venous laserectomy. Slight improvement to the superinfection of the left leg pain. Objective - Vital Signs/Intake and Output Vital Signs (last 24 hours): Temp Pulse Resp BP Pulse Ox 99 F 64 20 101/64 94 L 01/11/18 14:00 01/11/18 14:00 01/11/18 14:00 01/11/18 14:00 01/11/18 14:00 - Medications Medications: Current Medications Aspirin (Aspirin Chewable) 81 mg PO DAILY [facility] Last Admin: 01/11/18 10:10 Dose: 81 mg Furosemide (Lasix) 40 mg PO DAILY [facility] Last Admin: 01/11/18 10:10 Dose: Not Given Home Med (Home Med) 1 unit PO HS [facility] Last Admin: 01/10/18 22:33 Dose: Not Given Vancomycin HCl (Vancomycin 1gm) 1 gm in 250 mls @ 167 mls/hr IVPB Q12H [facility] PRN Reason: Protocol Last Admin: 01/11/18 06:04 Dose: 167 mls/hr Cefepime HCl (Maxipime 1gm) 1 gm in 100 mls @ 100 mls/hr IVPB Q12 [facility] PRN Reason: Protocol Last Admin: 01/11/18 10:10 Dose: 100 mls/hr Ibuprofen (Motrin Tab) 400 mg PO Q6H PRN PRN Reason: Fever >100.4 F Last Admin: 01/11/18 11:28 Dose: 400 mg Lisinopril (Zestril) 20 mg PO DAILY [facility] Last Admin: 01/11/18 10:10 Dose: Not Given Methimazole (Tapazole) 5 mg PO MWF [facility] Last Admin: 01/11/18 10:10 Dose: 5 mg Metoprolol Tartrate (Lopressor) 50 mg PO HS [facility] Last Admin: 01/10/18 22:21 Dose: 50 mg Mupirocin (Bactroban Ointment) 0 gm TOP BID [facility] Last Admin: 01/11/18 18:40 Dose: 1 applic - Labs Labs: 01/11/18 06:45 01/11/18 06:45 PT 15.1 SECONDS (9.4-12.5) H 01/10/18 10:27 INR 1.31 (0.93-1.08) H 01/10/18 10:27 APTT 25.5 Seconds (25.1-36.5) 01/10/18 10:27 - Constitutional Appears: Non-toxic, No Acute Distress, Chronically Ill - Head Exam Head Exam: ATRAUMATIC, NORMOCEPHALIC - Eye Exam Eye Exam: EOMI, PERRL Pupil Exam: NORMAL ACCOMODATION, PERRL - ENT Exam ENT Exam: Mucous Membranes Moist, Normal External Ear Exam, TM's Normal Bilaterally - Neck Exam Neck Exam: Full ROM, Normal Inspection - Respiratory Exam Respiratory Exam: Clear to Ausculation Bilateral, NORMAL BREATHING PATTERN. absent: Rales, Rhonchi, Wheezes - Cardiovascular Exam Cardiovascular Exam: REGULAR RHYTHM, RRR, +S1, +S2 - GI/Abdominal Exam GI & Abdominal Exam: Soft, Normal Bowel Sounds. absent: Distended, Tenderness - Extremities Exam Extremities Exam: Full ROM, Joint Swelling, Pedal Edema Additional comments: lower left leg is tender, swollen, erythematous, and edematous with ulcerations present. pulse difficult to palpate in left leg due to swelling. pulse is +2 in right leg. Sensation is diminished in left leg compared to right. Very slight improvement from yesterday. - Neurological Exam Neurological Exam: Alert, Awake, CN II-XII Intact, Oriented x3 - Psychiatric Exam Psychiatric exam: Normal Affect, Normal Mood - Skin Skin Exam: Erythema Additional comments: lower left leg is tender, swollen, erythematous, and edematous with ulcerations present. pulse difficult to palpate in left leg due to swelling. pulse is +2 in right leg. Sensation is diminished in left leg compared to right. Very slight improvement from yesterday. Assessment and Plan - Assessment and Plan (Free Text) Assessment: 67 yo female with PVD of the lower extremities and history of HTN presenting with erythema, edema, pain, and tenderness to the left leg with open ulcerations and swelling of the same leg. Given one dose of Vancomycin IV. Supportive care. Will continue with Vancomycin and Cefepime IV at this time. No history of renal insufficiency. Right ankle tendon repair in April 2017. Outward signs of peripheral vascular disease. Monitor LFTs. Patient revealed further information supporting long standing peripheral vascular disease. Thank you for allowing me to participate in the care of the patient, we will follow with you.
[2018-01-11 20:18] LABS: ARTERIAL BLOOD GAS HCO3 22.6 mmol/L (21-28); ARTERIAL BLOOD GAS O2 CAPACITY 13.7 mL/dl (16-24); ARTERIAL BLOOD GAS O2 CONTENT 13.4 ML/dl (15-23); ARTERIAL BLOOD GAS O2 SAT 97.6 % (95-98); ARTERIAL BLOOD GAS PCO2 31 mm/Hg (35-45); ARTERIAL BLOOD GAS PH 7.47 (7.35-7.45); ARTERIAL BLOOD GAS TCO2 23.6 mmol.L (22-28)
[2018-01-11] MEDS: PRAVASTATIN 40MG PO SCH (21:50)
[2018-01-12] MEDS: Vancomycin 1gm in NS 250ml 1 GM/250 ML BAG IVPB SCH ×2 (05:52→17:23)
[2018-01-12 07:09] LABS: HEMOGLOBIN 10.1 g/dL (12.0-16.0); MEAN CELL VOLUME 78.6 fl (80.0-105.0); MEAN CORPUSCULAR HEMOGLOBIN 26.4 pg (25.0-35.0); MEAN CORPUSCULAR HGB CONC 33.6 g/dl (31.0-37.0); MEAN PLATELET VOLUME 11.3 fl (7.0-11.0); RBC 3.83 10^6/uL (3.5-6.1); RED CELL DISTRIBUTION WIDTH 15.3 % (11.5-14.5); WHITE BLOOD COUNT 13.9 10^3/ul (4.5-11.0)
--- NOTE | 2018-01-12 07:13 | CON ---
DATE: 01/11/2018 PULMONARY CONSULTATION REFERRING PHYSICIAN: Dr. Strong. REASON FOR CONSULTATION: Shortness of breath, may have sleep apnea syndrome, cellulitis of lower extremity. HISTORY OF PRESENT ILLNESS: This is a 67-year-old female with past medical history significant for hypertension, venous insufficiency of the lower extremity, diabetes, hyperthyroidism, history of cellulitis of lower extremity, nonhealing wound of the left ankle, chronic back pain with sciatica, gastritis, GERD, presenting to the emergency room with increased swelling, erythema and pain of the left lower extremity. Outpatient, she had ultrasound of the leg done, which was negative for DVT. Admitted for further workup. Presently, lying in the bed, short of breath with exertion. No chest pain. Admit to have snoring, daytime sleepy and tired. Left leg has erythema and is swollen. PAST MEDICAL HISTORY: As per history of present illness. SOCIAL HISTORY: No history of smoking or alcohol use. ALLERGIES: NONE KNOWN. FAMILY HISTORY: No significant cardiopulmonary disease reported. MEDICATIONS: She is on aspirin 81 mg daily; Bactroban ointment to affected area twice a day; Lasix 40 mg daily; metoprolol tartrate 50 mg at bedtime; cefepime 1 g IV every 12 hours; Motrin 400 mg every 6 hours p.r.n.; Tapazole 5 mg Thursday, Thursday and Thursday; vancomycin 1 g IV every 12 hours; Zestril 20 mg daily. REVIEW OF SYSTEMS: No headache, no rhinitis. Short of breath with exertion. Admit to have snoring, daytime sleepy and tired. No chest pain. No nausea, no vomiting, no diarrhea. Left leg is tender, swollen and erythema. PHYSICAL EXAMINATION: GENERAL: No acute distress. VITAL SIGNS: Temperature is 99, T-max is 101, heart rate is , respiratory rate is 20, blood pressure 101/64, pulse ox 94% room air. HEENT: Moist mucous membrane. Crowded airway. Mallampati score is 4. NECK: Supple. No JVD. LUNGS: Has fair airflow with rhonchi. HEART: S1 and S2. ABDOMEN: Soft, nontender, nondistended. EXTREMITIES: Has edema of the left lower extremity with chronic skin changes. Tender to touch. NEUROLOGIC: Awake and alert, follows simple commands. LABORATORY DATA: Shows hemoglobin 10.7, hematocrit 31.8, WBC 11.9, platelet is 242. INR 1.31. PTT is 26, D-dimer was 1910. VBG show pH 7.35, pCO2 55, O2 26. Sodium 137, potassium 4.5, chloride 101, bicarbonate 28, BUN 17, creatinine 0.7, hemoglobin A1c 6, calcium is 8.1. Iron is 27, TIBC 218, AST 66, ALT 89, alk phos is 166. Cholesterol is 135. TSH 1.97. Microbiology, blood culture, urine culture, there is no growth. CT of the chest is done yesterday, which showed there is no pulmonary embolism, dilated pulmonary arteries suggested of pulmonary hypertension. IMPRESSION AND PLAN: Recurrent cellulitis of lower extremity with an ankle nonhealing ulcer, hypertension, hyperthyroidism, obesity, may have a sleep apnea syndrome. Suggested of pulmonary hypertension. Agree with the present management with antibiotics covering left lower extremity cellulitis. Keep head elevated at 45 degrees. Will need outpatient echocardiogram, assess right ventricular function and pulmonary hypertension, attended sleep study. Elevate the left lower extremity. Podiatry followup. Thank you and we will follow with you. Radha Tellez MD
[2018-01-12 07:56] LABS: ALBUMIN 2.7 g/dL (3.0-4.8); ALT/SGPT 176 U/L (7-56); AST/SGOT 103 U/L (14-36); BLOOD UREA NITROGEN 15 mg/dL (7-21); GFR AFRICAN-AMERICAN > 60; GFR NON-AFRICAN AMERICAN > 60
[2018-01-12] MEDS: Cefepime 1gm in NS 100ml 1 GM/100 ML BAG IVPB SCH ×2 (11:38→23:53)
[2018-01-12] MEDS: Mupirocin 2% Ointment 15 GM TUBE TOP SCH ×2 (11:39→17:25)
--- NOTE | 2018-01-12 12:55 | PN ---
DATE: 01/11/2018 SUBJECTIVE: The patient is a 67-year-old female. The patient was seen and examined at the bedside on 01/11/2018, looking comfortable. No headache, no runny nose, having shortness breath with exertion and sometimes with coughing. Admits to have snoring. Daytime sleepy and tired. No chest pain, no nausea, vomiting, no diarrhea, having left leg tenderness, swollen and erythema. PHYSICAL EXAMINATION: VITAL SIGNS: Temperature 99, T-max 101; heart rate 80; respiratory rate 18; blood pressure 110/60; pulse oximetry 94% on room air. HEENT: Head normocephalic, atraumatic. Eyes: PERRLA. Extraocular muscles intact. Conjunctivae clear. Nose patent. Mucous membrane moist. NECK: Supple. No carotid bruit. No JVD or thyromegaly. CHEST: Bilaterally symmetrical. HEART: S1 and S2 positive. LUNGS: Has fair airflow with rhonchi. ABDOMEN: Soft, nontender. No organomegaly. EXTREMITIES: Has edema of the left lower extremity with chronic ischemic changes, tender to touch, both legs have this edema. NEUROLOGICAL: The patient is awake and alert. Follow simple commands. LABORATORY DATA: White blood cells 10.7, hematocrit 31.8, white blood cells 11.9, platelets 242. Sodium 137, potassium 4.5, BUN 17, creatinine 0.7. Hemoglobin A1c is 6. AST 66, ALT 89. Cholesterol is 135. TSH 1.97. MEDICATIONS: Aspirin, Lasix, metoprolol, cefepime, Motrin, Tapazole, vancomycin and Zestril. ASSESSMENT AND PLAN: Ms. Xenia Hall is a 67-year-old lady with recurrent cellulitis of both lower extremities with an ankle nonhealing ulcer, hypertension, hyperthyroidism, obesity, sleep apnea syndrome and pulmonary hypertension. The patient is getting antibiotics , left lower extremity cellulitis. Need echocardiography to assess right ventricular function and pulmonary hypertension, need sleep study. Elevation of the left lower extremity. Podiatry is on the case. Infectious Disease is on the case, appreciated our retail client solutions consultant notes. GI and DVT prophylaxis. Repeat labs, we will follow up. Prema Strong MD [facility] # [id number] MTDD
--- NOTE | 2018-01-12 15:56 | CP.PCM.PN ---
<Warren Riley - Last Filed: 01/12/18 16:04> Subjective - Date & Time of Evaluation Date of Evaluation: 01/12/18 Time of Evaluation: 13:56 - Subjective Subjective: Podiatry Consult Note- Dr. Mendes/Dr. Grayson 67 y.o female with PMHx of HTN, chronic venous insufficiency seen and evaluated at bedside for left lower extremity pain with swelling with redness. Seen resting comfortably in bed, in NAD, and AA0x3. Patient reports the same pain to the left lower extremity. Sonny nausea, fever, shortness of breath, chest pains or chills. No other pedal complaints at this time. Objective - Vital Signs/Intake and Output Vital Signs (last 24 hours): Temp Pulse Resp BP Pulse Ox 99.6 F 66 16 118/58 L 98 01/12/18 06:00 01/12/18 06:00 01/12/18 06:00 01/12/18 11:38 01/12/18 06:00 Intake and Output: 01/12/18 01/12/18 06:59 18:59 Intake Total 540 Balance 540 - Medications Medications: Current Medications Aspirin (Aspirin Chewable) 81 mg PO DAILY [facility] Last Admin: 01/12/18 11:39 Dose: 81 mg Diphenhydramine HCl (Benadryl) 25 mg PO HS PRN PRN Reason: Insomnia Ferrous Sulfate (Feosol) 324 mg PO TID [facility] Furosemide (Lasix) 40 mg PO DAILY [facility] Last Admin: 01/12/18 11:38 Dose: 40 mg Home Med (Home Med) 1 unit PO HS [facility] Last Admin: 01/11/18 21:50 Dose: Not Given Vancomycin HCl (Vancomycin 1gm) 1 gm in 250 mls @ 167 mls/hr IVPB Q12H [facility] PRN Reason: Protocol Last Admin: 01/12/18 05:52 Dose: 167 mls/hr Cefepime HCl (Maxipime 1gm) 1 gm in 100 mls @ 100 mls/hr IVPB Q12 [facility] PRN Reason: Protocol Last Admin: 01/12/18 11:38 Dose: 100 mls/hr Ibuprofen (Motrin Tab) 400 mg PO Q6H PRN PRN Reason: Fever >100.4 F Last Admin: 01/12/18 11:38 Dose: 400 mg Lisinopril (Zestril) 20 mg PO DAILY [facility] Last Admin: 01/12/18 11:38 Dose: 20 mg Methimazole (Tapazole) 5 mg PO MWF [facility] Last Admin: 01/11/18 10:10 Dose: 5 mg Metoprolol Tartrate (Lopressor) 50 mg PO HS [facility] Last Admin: 01/11/18 21:49 Dose: Not Given Mupirocin (Bactroban Ointment) 0 gm TOP BID [facility] Last Admin: 01/12/18 11:39 Dose: 1 applic - Labs Labs: 01/12/18 06:45 01/12/18 06:45 PT 15.1 SECONDS (9.4-12.5) H 01/10/18 10:27 INR 1.31 (0.93-1.08) H 01/10/18 10:27 APTT 25.5 Seconds (25.1-36.5) 01/10/18 10:27 - Constitutional Appears: Well, Non-toxic, No Acute Distress - Extremities Exam Extremities Exam: absent: Calf Tenderness Additional comments: left lower extremity focused examination: VASC: DP and PT 2/4 bilaterally, CFT < 3 seconds to the digits, temperature gradient is warm to warm, swelling noted to the entire left lower extremity ORTHO: pain with palpation to the entire left lower extremity, AROM to digits 1- 5 presents, MM is 4/5 with guarding noted to the lower extremity in all four compartments: dorsiflexion, plantarflexion, inversion and eversion, able to perform ankle ROM with guarding and pain localized pain with palpation to the posterior medial calf NEURO: gross and protective sensation intact DERM: venous stasis dermatitis noted to the entire lower extremity with diffuse erythema noted to entire left lower extremity, no active drainage noted at bedside, tiny multiple diffuse old lesions with scarring and xerosis noted to lower extremity. No appreciable open lesions noted. Localized elevated bullae measuring approximately 1cm x 1cm noted to the medial aspect of left leg with possible abscess. Location of possible abscess is in close proximately to venous vessels. Assessment and Plan - Assessment and Plan (Free Text) Assessment: 67 y.o female with PMHx of HTN, chronic venous insufficiency with 1) post thrombotic syndrome left lower extremity 2) venous stasis dermatitis left lower extremity 3) cellulitis to left lower extremity, r/o abscess to left lower extremity Plan: Patient seen and examined Discussed plan in detail with attending Dr. Mendes Labs, vitals, chart reviewed- afebrile, WBC=13.9, trended up c/w IV abx per ID Will hold off on SVEN compression at this time, need to r/o abscess to the left lower extremity Newly formed bullae to the left medial posterior calf MRI ordered to r/o abscess Please gently apply warm compressions twice daily for 5-10 minutes to the left lower extremity Cleansed bullae with saline solution and dressed with optifoam WBAT in surgical shoe to LE bilaterally Duplex U/S on 01/10/18 (-) DVT to lower extremity bilaterally Will hold off on UNNA boot to the left lower extremity at this time, thank you Will continue to follow patient while in house Thank you for the consult <Maury Mendes - Last Filed: 01/15/18 17:47> Objective - Vital Signs/Intake and Output Vital Signs (last 24 hours): Temp Pulse Resp BP Pulse Ox 97.7 F 61 20 113/60 96 01/15/18 14:00 01/15/18 14:00 01/15/18 14:00 01/15/18 14:00 01/15/18 14:00 Intake and Output: 01/15/18 01/15/18 06:59 18:59 Intake Total 1900 Balance 1900 - Medications Medications: Current Medications Aspirin (Aspirin Chewable) 81 mg PO DAILY [facility] Last Admin: 01/15/18 11:12 Dose: 81 mg Diphenhydramine HCl (Benadryl) 25 mg PO HS PRN PRN Reason: Insomnia Last Admin: 01/13/18 00:02 Dose: 25 mg Docusate Sodium (Colace) 100 mg PO DAILY [facility] Last Admin: 01/15/18 11:11 Dose: 100 mg Ferrous Sulfate (Feosol) 324 mg PO TID [facility] Last Admin: 01/15/18 17:04 Dose: 324 mg Furosemide (Lasix) 40 mg PO DAILY [facility] Last Admin: 01/15/18 11:11 Dose: 40 mg Home Med (Home Med) 1 unit PO HS [facility] Last Admin: 01/14/18 22:28 Dose: Not Given Hydromorphone HCl (Dilaudid) 0.5 mg IVP Q4H PRN PRN Reason: Pain, severe (8-10) Last Admin: 01/15/18 09:03 Dose: 0.5 mg Vancomycin HCl (Vancomycin 1gm) 1 gm in 250 mls @ 167 mls/hr IVPB Q12H [facility] PRN Reason: Protocol Last Admin: 01/15/18 17:04 Dose: 167 mls/hr Cefepime HCl (Maxipime 1gm) 1 gm in 100 mls @ 100 mls/hr IVPB Q12 [facility] PRN Reason: Protocol Last Admin: 01/15/18 11:12 Dose: 100 mls/hr Dextrose/Sodium Chloride (Dextrose 5%/0.9% Ns 1000 Ml) 1,000 mls @ 115 mls/hr IV .Q8H42M [facility] Last Admin: 01/15/18 05:31 Dose: 115 mls/hr Ibuprofen (Motrin Tab) 400 mg PO Q6H PRN PRN Reason: Fever >100.4 F Last Admin: 01/13/18 20:58 Dose: 400 mg Lisinopril (Zestril) 20 mg PO DAILY [facility] Last Admin: 01/15/18 11:11 Dose: 20 mg Methimazole (Tapazole) 5 mg PO MWF [facility] Last Admin: 01/15/18 11:12 Dose: 5 mg Metoprolol Tartrate (Lopressor) 50 mg PO HS [facility] Last Admin: 01/14/18 21:37 Dose: 50 mg Morphine Sulfate (Morphine) 4 mg IVP Q4H PRN PRN Reason: Pain, moderate (4-7) Mupirocin (Bactroban Ointment) 0 gm TOP BID [facility] Last Admin: 01/15/18 11:13 Dose: Not Given Ondansetron HCl (Zofran Inj) 4 mg IVP Q6H PRN PRN Reason: Nausea/Vomiting Last Admin: 01/14/18 20:05 Dose: 4 mg - Labs Labs: 01/15/18 07:15 01/15/18 07:15 PT 17.5 SECONDS (9.4-12.5) H 01/14/18 06:30 INR 1.51 (0.93-1.08) H 01/14/18 06:30 APTT 23.5 Seconds (25.1-36.5) L 01/14/18 06:30 Attending/Attestation - Attestation I have personally seen and examined this patient.: Yes I have fully participated in the care of the patient.: Yes I have reviewed all pertinent clinical information, including history, physical exam and plan: Yes
--- NOTE | 2018-01-12 16:38 | CP.PCM.PN ---
Subjective - Date & Time of Evaluation Date of Evaluation: 01/12/18 Time of Evaluation: 15:30 - Subjective Subjective: Infectious Disease Follow Up: January 12, 2018 67 year old female with PMH of hypertension and chronic venous insufficiency presenting to the ER for 6 day history of worsening left leg pain and swelling. Patient has history of chronic insufficiency in both lower legs and has been seeing Dr. Romario DPM for wound care. Patient saw her propellant charge loader, Dr. Partida, on Thursday and ultrasound of her legs was negative at that time. Today , patient states pain and swelling in left leg was worsening. She denies recent infections and trauma to her legs. She denies CP, SOB, fevers, abdominal pain, nausea, vomiting, chills, recent sickness, sick contacts at home, and recent travel. The patient apparently also had a DVT to left lower extremity in the past treated with surgical venous laserectomy. Very slight improvement to the superinfection of the left leg pain. Still complains of pain to the left lower leg. MRI pending. Objective - Vital Signs/Intake and Output Vital Signs (last 24 hours): Temp Pulse Resp BP Pulse Ox 99.6 F 66 16 118/58 L 98 01/12/18 06:00 01/12/18 06:00 01/12/18 06:00 01/12/18 11:38 01/12/18 06:00 Intake and Output: 01/12/18 01/12/18 06:59 18:59 Intake Total 540 Balance 540 - Medications Medications: Current Medications Aspirin (Aspirin Chewable) 81 mg PO DAILY [facility] Last Admin: 01/12/18 11:39 Dose: 81 mg Diphenhydramine HCl (Benadryl) 25 mg PO HS PRN PRN Reason: Insomnia Ferrous Sulfate (Feosol) 324 mg PO TID [facility] Furosemide (Lasix) 40 mg PO DAILY [facility] Last Admin: 01/12/18 11:38 Dose: 40 mg Home Med (Home Med) 1 unit PO HS [facility] Last Admin: 01/11/18 21:50 Dose: Not Given Vancomycin HCl (Vancomycin 1gm) 1 gm in 250 mls @ 167 mls/hr IVPB Q12H [facility] PRN Reason: Protocol Last Admin: 01/12/18 05:52 Dose: 167 mls/hr Cefepime HCl (Maxipime 1gm) 1 gm in 100 mls @ 100 mls/hr IVPB Q12 [facility] PRN Reason: Protocol Last Admin: 01/12/18 11:38 Dose: 100 mls/hr Ibuprofen (Motrin Tab) 400 mg PO Q6H PRN PRN Reason: Fever >100.4 F Last Admin: 01/12/18 11:38 Dose: 400 mg Lisinopril (Zestril) 20 mg PO DAILY [facility] Last Admin: 01/12/18 11:38 Dose: 20 mg Methimazole (Tapazole) 5 mg PO MWF [facility] Last Admin: 01/11/18 10:10 Dose: 5 mg Metoprolol Tartrate (Lopressor) 50 mg PO HS [facility] Last Admin: 01/11/18 21:49 Dose: Not Given Mupirocin (Bactroban Ointment) 0 gm TOP BID [facility] Last Admin: 01/12/18 11:39 Dose: 1 applic - Labs Labs: 01/12/18 06:45 01/12/18 06:45 PT 15.1 SECONDS (9.4-12.5) H 01/10/18 10:27 INR 1.31 (0.93-1.08) H 01/10/18 10:27 APTT 25.5 Seconds (25.1-36.5) 01/10/18 10:27 - Constitutional Appears: Non-toxic, No Acute Distress, Chronically Ill - Head Exam Head Exam: ATRAUMATIC, NORMOCEPHALIC - Eye Exam Eye Exam: EOMI, PERRL Pupil Exam: NORMAL ACCOMODATION, PERRL - ENT Exam ENT Exam: Mucous Membranes Moist, Normal External Ear Exam, TM's Normal Bilaterally - Neck Exam Neck Exam: Full ROM, Normal Inspection - Respiratory Exam Respiratory Exam: Clear to Ausculation Bilateral, NORMAL BREATHING PATTERN. absent: Rales, Rhonchi, Wheezes - Cardiovascular Exam Cardiovascular Exam: REGULAR RHYTHM, RRR, +S1, +S2 - GI/Abdominal Exam GI & Abdominal Exam: Soft, Normal Bowel Sounds. absent: Distended, Tenderness - Extremities Exam Extremities Exam: Full ROM, Joint Swelling, Pedal Edema Additional comments: lower left leg is tender, swollen, erythematous, and edematous with ulcerations present. pulse difficult to palpate in left leg due to swelling. pulse is +2 in right leg. Sensation is diminished in left leg compared to right. Very slight improvement from yesterday. - Neurological Exam Neurological Exam: Alert, Awake, CN II-XII Intact, Oriented x3 - Psychiatric Exam Psychiatric exam: Normal Affect, Normal Mood - Skin Skin Exam: Erythema Additional comments: lower left leg is tender, swollen, erythematous, and edematous with ulcerations present. pulse difficult to palpate in left leg due to swelling. pulse is +2 in right leg. Sensation is diminished in left leg compared to right. Very slight improvement from yesterday. Assessment and Plan - Assessment and Plan (Free Text) Assessment: 67 yo female with PVD of the lower extremities and history of HTN presenting with erythema, edema, pain, and tenderness to the left leg with open ulcerations and swelling of the same leg. Given one dose of Vancomycin IV. Supportive care. Will continue with Vancomycin and Cefepime IV at this time. No history of renal insufficiency. Right ankle tendon repair in April 2017. Outward signs of peripheral vascular disease. Monitor LFTs. Patient revealed further information supporting long standing peripheral vascular disease. MRI pending. Possible I&D today. Leukocytosis slightly uptrended to 13 today. Still with pain to left lower leg. Thank you for allowing me to participate in the care of the patient, we will follow with you.
[2018-01-12] MEDS: PRAVASTATIN 40MG PO SCH (23:47)
[2018-01-13] MEDS: Vancomycin 1gm in NS 250ml 1 GM/250 ML BAG IVPB SCH ×2 (05:06→16:55)
--- NOTE | 2018-01-13 05:29 | PN ---
DATE: 01/12/2018 PULMONARY PROGRESS NOTE REFERRING PHYSICIAN: Prema Strong MD SUBJECTIVE: She is lying in the bed at 45 degrees. Night was unremarkable. No headache, no rhinitis. Short of breath with exertion. No chest pain. No nausea, no vomiting, no diarrhea. Has a persistent left leg swelling, erythema and nonhealing ulcer. OBJECTIVE: GENERAL: In no distress. VITAL SIGNS: Temperature is 100.8, heart rate 71, respiratory rate is 18, blood pressure 142/64, pulse ox 95% room air. HEENT: Moist mucous membranes. Crowded airway. Mallampati score is 4. NECK: Supple. No JVD. LUNGS: Have fair airflow with rhonchi. HEART: S1 and S2. ABDOMEN: Soft, nontender, no organomegaly. EXTREMITIES: Left lower leg has some dressing erythema, swelling, tender. NEUROLOGIC: Awake and alert. Follows simple commands. MEDICATIONS: She is on aspirin 81 mg daily, Bactroban ointment to affected area twice a day, Benadryl 25 mg at bedtime p.r.n., ferrous sulfate 324 mg three times a day, Lasix 40 mg daily, metoprolol tartrate 50 mg at bedtime, cefepime 1 g IV every 12 hours, Motrin p.r.n. basis, methimazole 5 mg Thursday, Thursday and Thursday, vancomycin 1 g IV every 12 hours, Zestril 20 mg daily. LABORATORY DATA: Shows hemoglobin 10.1, hematocrit 30.1, WBC 13.9, platelet is 326. Sodium 139, potassium 5.1, chloride 101, bicarbonate 27, BUN 15, creatinine 0.6, glucose 106, calcium 8, AST is 103, ALT 176, alk phos is 252. Albumin is 2.7. Vitamin B12 of 714. Folate is 14. TSH 1.97. Has ABG done shows pH 7.47, pCO2 of 31, O2 of 69, this is on room air. Microbiology, blood culture, urine culture, there is no growth. IMPRESSION AND PLAN: Recurrent cellulitis of lower extremity with ankle nonhealing ulcer, hypertension, hypothyroid, obesity, may have sleep apnea syndrome. CT suggested of pulmonary hypertension. Pulmonary point of view, she is doing okay. Keep head at 45 degrees. Case discussed with floor nurse practitioner. The patient already being followed by Dr. Dworkin from Podiatry. Continue broad-spectrum antibiotics covering healthcare-associated organism. If sedated, needs close cardiopulmonary monitoring. Thank you and we will follow with you. Radha Tellez MD
[2018-01-13 07:37] LABS: BASO # 0.03 K/mm3 (0.0-2.0); BASO % 0.2 % (0.0-3.0); EOS # 0.2 (0.0-0.7); EOS % 1.4 % (1.5-5.0); GRAN # 12.06 (1.4-6.5); GRAN % 78.9 % (50.0-68.0); HEMOGLOBIN 10.8 g/dL (12.0-16.0); MEAN CELL VOLUME 78.3 fl (80.0-105.0); MEAN CORPUSCULAR HEMOGLOBIN 26.1 pg (25.0-35.0); MEAN CORPUSCULAR HGB CONC 33.3 g/dl (31.0-37.0); MEAN PLATELET VOLUME 10.6 fl (7.0-11.0); MONO % 6.5 % (1.0-6.0); RBC 4.14 10^6/uL (3.5-6.1); RED CELL DISTRIBUTION WIDTH 15.1 % (11.5-14.5); WHITE BLOOD COUNT 15.3 10^3/ul (4.5-11.0)
[2018-01-13 07:49] LABS: ALB/GLOB RATIO 0.9 (1.1-1.8); ALT/SGPT 238 U/L (7-56); AST/SGOT 151 U/L (14-36); BLOOD UREA NITROGEN 13 mg/dL (7-21); CALCIUM 8.1 mg/dL (8.4-10.5); GFR AFRICAN-AMERICAN > 60; GFR NON-AFRICAN AMERICAN > 60
--- NOTE | 2018-01-13 08:45 | PN ---
DATE: 01/12/2018 SUBJECTIVE: The patient is a 67-year-old female. Patient was seen and examined at the bedside on 01/12/2018, still having pain in the legs, especially left foot and left leg, seen by the Podiatry. No nausea or vomiting. No headache or dizziness. Same pain to the left lower extremity. No shortness of breath. No chest pain. No chills. No headache. No fever. No chills. PHYSICAL EXAMINATION: VITAL SIGNS: Temperature 99.6, pulse 62, respiratory rate 16, blood pressure 118/58, pulse oximetry 98%. HEENT: Head: Normocephalic, atraumatic. Eyes: PERRLA. Extraocular muscles intact. Conjunctivae clear. Nose patent. Mucous membrane moist. NECK: Supple. No carotid bruit. No JVD or thyromegaly. CHEST: Bilaterally symmetrical. HEART: S1 and S2 positive. LUNGS: Clear to auscultation. ABDOMEN: Soft. Bowel sounds present. No organomegaly. EXTREMITIES: Upper extremity, no edema, no cyanosis. Lower extremities, especially right foot had dressing. Both lower extremities, there is dark pigmentation. NEUROLOGIC: Patient is awake, alert. Moving all four extremities. No focal deficits. Obeying simple orders. MEDICATIONS: Aspirin, Benadryl, Feosol, Lasix, vancomycin, Maxipime, ibuprofen, Zestril, Tapazole, Lopressor, Bactroban. LABORATORY DATA: White blood cells 13.9, hemoglobin 10.1, hematocrit 30.1, platelet 329,000. Sodium 139, potassium 5.1, BUN of 15, creatinine 0.6. Glucose 106. ASSESSMENT AND PLAN: a 67-year-old female with leukocytosis, anemia, hyperkalemia, has history of hypertension, chronic venous insufficiency, post thrombotic syndrome of left lower extremity, venous stasis dermatitis of left lower extremity, cellulitis of the left lower extremity, rule out abscess of the left lower extremity. Plan is continue present treatment, seen by Podiatry, Dr. Mendes. Hold off Anibal compression at this time. May need to rule out abscess to rule out lower extremity newly formed bullae to the left middle posterior calf. MRI ordered. Apply warm compression twice a day for 5 to 10 minutes to lower extremity. Clean bullae with saline solution. Duplex ordered. Hold off Unna boot to the left lower extremity at this time as per Podiatry. Seen by Dr. Casillas, Infectious Disease. History of peripheral vascular disease, history of hypertension, given one dose of vancomycin, supportive care. Continue vancomycin and cefepime at this time. No history of renal insufficiency. History of right ankle repair in 04/2017. Monitor liver function test and other electrolytes. Gastrointestinal and deep venous thrombosis prophylaxis. Repeat labs. We will follow up. Prema Strong MD [facility] # [id number] MTDD
[2018-01-13] MEDS ORDERED: Dextrose 5%/0.9% NS 1,000 ML IV SCH (09:00)
[2018-01-13] MEDS: Mupirocin 2% Ointment 15 GM TUBE TOP SCH (10:00)
[2018-01-13] MEDS ORDERED: Iohexol 350 MG/100 ML VIAL ONE (10:32)
[2018-01-13] MEDS: methIMAzole 5 MG TAB PO SCH (10:45)
--- NOTE | 2018-01-13 11:40 | CP.PCM.PN ---
<Warren Riley - Last Filed: 01/13/18 11:44> Subjective - Date & Time of Evaluation Date of Evaluation: 01/13/18 Time of Evaluation: 09:00 - Subjective Subjective: Podiatry Consult Note- Dr. Mendes/Dr. Grayson 67 y.o female with PMHx of HTN, chronic venous insufficiency seen and evaluated at bedside for left lower extremity pain with swelling with redness with left leg abscess. Seen resting comfortably in bed, in NAD, and AA0x3. Patient reports the same pain to the left lower extremity. Sonny nausea, fever, shortness of breath, chest pains or chills. No other pedal complaints at this time. Sangious drainage noted to optifoam. Objective - Vital Signs/Intake and Output Vital Signs (last 24 hours): Temp Pulse Resp BP Pulse Ox 98.6 F 61 20 126/66 97 01/13/18 06:00 01/13/18 06:00 01/13/18 06:00 01/13/18 10:45 01/13/18 06:00 Intake and Output: 01/13/18 01/13/18 06:59 18:59 Intake Total 800 Balance 800 - Medications Medications: Current Medications Aspirin (Aspirin Chewable) 81 mg PO DAILY [facility] Last Admin: 01/12/18 11:39 Dose: 81 mg Diphenhydramine HCl (Benadryl) 25 mg PO HS PRN PRN Reason: Insomnia Last Admin: 01/13/18 00:02 Dose: 25 mg Ferrous Sulfate (Feosol) 324 mg PO TID [facility] Last Admin: 01/12/18 14:00 Dose: 324 mg Furosemide (Lasix) 40 mg PO DAILY [facility] Last Admin: 01/13/18 10:45 Dose: 40 mg Home Med (Home Med) 1 unit PO HS [facility] Last Admin: 01/12/18 23:47 Dose: Not Given Vancomycin HCl (Vancomycin 1gm) 1 gm in 250 mls @ 167 mls/hr IVPB Q12H [facility] PRN Reason: Protocol Last Admin: 01/13/18 05:06 Dose: 167 mls/hr Cefepime HCl (Maxipime 1gm) 1 gm in 100 mls @ 100 mls/hr IVPB Q12 [facility] PRN Reason: Protocol Last Admin: 01/12/18 23:53 Dose: 100 mls/hr Dextrose/Sodium Chloride (Dextrose 5%/0.9% Ns 1000 Ml) 1,000 mls @ 70 mls/hr IV .[id number] [facility] Ibuprofen (Motrin Tab) 400 mg PO Q6H PRN PRN Reason: Fever >100.4 F Last Admin: 01/12/18 23:53 Dose: 400 mg Lisinopril (Zestril) 20 mg PO DAILY [facility] Last Admin: 01/13/18 10:44 Dose: 20 mg Methimazole (Tapazole) 5 mg PO MWF [facility] Last Admin: 01/13/18 10:45 Dose: 5 mg Metoprolol Tartrate (Lopressor) 50 mg PO HS [facility] Last Admin: 01/12/18 23:54 Dose: Not Given Mupirocin (Bactroban Ointment) 0 gm TOP BID [facility] Last Admin: 01/12/18 17:25 Dose: 1 applic - Labs Labs: 01/13/18 07:00 01/13/18 07:00 PT 15.1 SECONDS (9.4-12.5) H 01/10/18 10:27 INR 1.31 (0.93-1.08) H 01/10/18 10:27 APTT 25.5 Seconds (25.1-36.5) 01/10/18 10:27 - Constitutional Appears: Well, Non-toxic, No Acute Distress - Extremities Exam Extremities Exam: absent: Calf Tenderness Additional comments: left lower extremity focused examination: VASC: DP and PT 2/4 bilaterally, CFT < 3 seconds to the digits, temperature gradient is warm to warm, swelling noted to the entire left lower extremity ORTHO: pain with palpation to the entire left lower extremity, AROM to digits 1- 5 presents, MM is 4/5 with guarding noted to the lower extremity in all four compartments: dorsiflexion, plantarflexion, inversion and eversion, able to perform ankle ROM with guarding and pain localized pain with palpation to the posterior medial calf at the area of abscess NEURO: gross and protective sensation intact DERM: venous stasis dermatitis noted to the entire lower extremity with diffuse erythema noted to entire left lower extremity, tiny multiple diffuse old lesions with scarring and xerosis noted to lower extremity. No appreciable open lesions noted. Increase blisters noted to the posterior medial aspect of left leg with possible deeper abscess. - Neurological Exam Neurological Exam: Alert, Awake, Oriented x3 Assessment and Plan - Assessment and Plan (Free Text) Assessment: 67 y.o female with PMHx of HTN, chronic venous insufficiency with 1) post thrombotic syndrome left lower extremity 2) venous stasis dermatitis left lower extremity 3) cellulitis with posteriormedial calf blister to left lower extremity, r/o deeper abscess to left lower extremity Plan: Patient seen and examined Discussed plan in detail with attending Dr. Grayson Labs, vitals, chart reviewed- afebrile, WBC=15.3, trended up c/w IV abx per ID Increased bullae to the left medial posterior calf, will likely need i and d Cleansed bullae with saline solution and dressed with optifoam WBAT in surgical shoe to LE bilaterally Duplex U/S on 01/10/18 (-) DVT to lower extremity bilaterally General surgery consulted, recommendations appreciated- Thank you Podiatry will sign off. Please re-consulted as need. Thank you <Sadie rGayson - Last Filed: 01/17/18 16:46> Objective - Vital Signs/Intake and Output Vital Signs (last 24 hours): Temp Pulse Resp BP Pulse Ox 99.7 F H 64 18 148/61 94 L 01/17/18 14:00 01/17/18 14:00 01/17/18 14:00 01/17/18 14:00 01/17/18 14:00 Intake and Output: 01/17/18 01/17/18 06:59 18:59 Intake Total 1020 600 Balance 1020 600 - Medications Medications: Current Medications Aspirin (Aspirin Chewable) 81 mg PO DAILY [facility] Last Admin: 01/17/18 09:51 Dose: 81 mg Diphenhydramine HCl (Benadryl) 25 mg PO HS PRN PRN Reason: Insomnia Last Admin: 01/13/18 00:02 Dose: 25 mg Docusate Sodium (Colace) 100 mg PO DAILY [facility] Last Admin: 01/17/18 09:51 Dose: 100 mg Enoxaparin Sodium (Lovenox) 40 mg SC DAILY [facility] PRN Reason: Protocol Ferrous Sulfate (Feosol) 324 mg PO TID [facility] Last Admin: 01/17/18 15:00 Dose: 324 mg Furosemide (Lasix) 40 mg PO DAILY [facility] Last Admin: 01/17/18 09:50 Dose: 40 mg Home Med (Home Med) 1 unit PO [facility] Last Admin: 01/16/18 22:05 Dose: Not Given Vancomycin HCl (Vancomycin 1gm) 1 gm in 250 mls @ 167 mls/hr IVPB Q12H [facility] PRN Reason: Protocol Last Admin: 01/17/18 05:16 Dose: 167 mls/hr Cefepime HCl (Maxipime 1gm) 1 gm in 100 mls @ 100 mls/hr IVPB Q12 [facility] PRN Reason: Protocol Last Admin: 01/17/18 09:51 Dose: 100 mls/hr Ibuprofen (Motrin Tab) 400 mg PO Q6H PRN PRN Reason: Fever >100.4 F Last Admin: 01/13/18 20:58 Dose: 400 mg Lisinopril (Zestril) 20 mg PO DAILY [facility] Last Admin: 01/17/18 09:50 Dose: 20 mg Methimazole (Tapazole) 5 mg PO [facility] Last Admin: 01/15/18 11:12 Dose: 5 mg Metoprolol Tartrate (Lopressor) 50 mg PO [facility] Last Admin: 01/16/18 22:12 Dose: Not Given Morphine Sulfate (Morphine) 4 mg IVP Q4H PRN PRN Reason: Pain, severe (8-10) Mupirocin (Bactroban Ointment) 0 gm TOP BID [facility] Last Admin: 01/17/18 11:00 Dose: 1 applic Ondansetron HCl (Zofran Inj) 4 mg IVP Q6H PRN PRN Reason: Nausea/Vomiting Last Admin: 01/14/18 20:05 Dose: 4 mg Tramadol HCl (Ultram) 50 mg PO Q4H PRN PRN Reason: Pain, moderate (4-7) Last Admin: 01/16/18 22:13 Dose: 50 mg - Labs Labs: 01/17/18 07:00 01/17/18 07:00 PT 17.1 SECONDS (9.4-12.5) H 01/16/18 07:00 INR 1.48 (0.93-1.08) H 01/16/18 07:00 APTT 21.6 Seconds (25.1-36.5) L 01/16/18 07:00 Attending/Attestation - Attestation I have personally seen and examined this patient.: Yes I have fully participated in the care of the patient.: Yes I have reviewed all pertinent clinical information, including history, physical exam and plan: Yes
--- NOTE | 2018-01-13 12:16 | CP.PCM.CON ---
History of Present Illness - History of Present Illness History of Present Illness: GENERAL SURGERY CONSULT NOTE FOR DR. HILL 67y/o czech speaking F with pmhx of chronic venous insufficiency, PVD, HTN, LLE venous laserectomy, sciatica, hyperthyroidism presents for LLE ulcer that has been worsening over the past week with increased swelling, erythema and tenderness. She has been following up with podiatry for wound care and dressings on her LLE. She reports shes been having the pain for about a week and noticed worsening of the lesion before coming to the ER. She denies any recent trauma or infections. She denies numbness, tingling, weakness, fever, chills, nausea, vomiting, headache, dizziness, chest pain, shortness breath, wheezing. Surghx: chronic venous insufficiency, HTN, LLE venous laserectomy, sciatica, hyperthyroidism Pmhx: Chronic venous insufficiency, HTN Allergy: NKDA Social: never smoked, no alcohol use Review of Systems - Review of Systems All systems: reviewed and no additional remarkable complaints except (as per HPI ) Past Patient History - Infectious Disease Hx of Infectious Diseases: None - Tetanus Immunizations Tetanus Immunization: Unknown - Past Medical History & Family History Past Medical History?: Yes - Past Social History Smoking Status: Never Smoked - CARDIAC Hx Cardiac Disorders: Yes Hx Hypertension: Yes Hx Pacemaker: No Hx Peripheral Vascular Disease: Yes Other/Comment: HEMOSIDEROSIS BLE - PULMONARY Hx Respiratory Disorders: No - NEUROLOGICAL Hx Neurological Disorder: No - HEENT Hx HEENT Problems: Yes Hx Cataracts: Yes - RENAL Hx Chronic Kidney Disease: No - ENDOCRINE/METABOLIC Hx Endocrine Disorders: Yes Hx Diabetes Mellitus Type 2: Yes (PRE DIABETES, NO MEDICATIONS) Hx Hyperthyroidism: Yes - HEMATOLOGICAL/ONCOLOGICAL Hx Blood Disorders: No Hx Blood Transfusions: No - INTEGUMENTARY Hx Dermatological Problems: Yes Hx Cellulitis: Yes (BLE) Other/Comment: CHRONIC NON HEALING WOUNDS BLE, HAS OPEN WOUNDS LEFT ANKLE AT PRESENT. - MUSCULOSKELETAL/RHEUMATOLOGICAL Hx Musculoskeletal Disorders: Yes Hx Back Pain: Yes Hx Falls: No Hx Fractures: No Hx Osteoarthritis: Yes Other/Comment: SCIATICA - GASTROINTESTINAL Hx Gastrointestinal Disorders: Yes Hx Gastritis: Yes Hx Gastroesophageal Reflux: Yes - GENITOURINARY/GYNECOLOGICAL Hx Genitourinary Disorders: No - PSYCHIATRIC Hx Psychophysiologic Disorder: No Hx Anxiety: No Hx Depression: No Hx Substance Use: No - SURGICAL HISTORY Hx Cataract Extraction: Yes Other/Comment: right ankle tendon, cataract - ANESTHESIA Hx Anesthesia: Yes Hx Anesthesia Reactions: No Hx Malignant Hyperthermia: No Meds Allergies/Adverse Reactions: Allergies Allergy/AdvReac Type Severity Reaction Status Date / Time No Known Allergies Allergy Verified 01/10/18 10:01 - Medications Medications: Current Medications Aspirin (Aspirin Chewable) 81 mg PO DAILY [facility] Last Admin: 01/12/18 11:39 Dose: 81 mg Diphenhydramine HCl (Benadryl) 25 mg PO HS PRN PRN Reason: Insomnia Last Admin: 01/13/18 00:02 Dose: 25 mg Ferrous Sulfate (Feosol) 324 mg PO TID [facility] Last Admin: 01/12/18 14:00 Dose: 324 mg Furosemide (Lasix) 40 mg PO DAILY [facility] Last Admin: 01/13/18 10:45 Dose: 40 mg Home Med (Home Med) 1 unit PO HS [facility] Last Admin: 01/12/18 23:47 Dose: Not Given Vancomycin HCl (Vancomycin 1gm) 1 gm in 250 mls @ 167 mls/hr IVPB Q12H [facility] PRN Reason: Protocol Last Admin: 01/13/18 05:06 Dose: 167 mls/hr Cefepime HCl (Maxipime 1gm) 1 gm in 100 mls @ 100 mls/hr IVPB Q12 [facility] PRN Reason: Protocol Last Admin: 01/12/18 23:53 Dose: 100 mls/hr Dextrose/Sodium Chloride (Dextrose 5%/0.9% Ns 1000 Ml) 1,000 mls @ 70 mls/hr IV .[id number] [facility] Ibuprofen (Motrin Tab) 400 mg PO Q6H PRN PRN Reason: Fever >100.4 F Last Admin: 01/12/18 23:53 Dose: 400 mg Lisinopril (Zestril) 20 mg PO DAILY [facility] Last Admin: 01/13/18 10:44 Dose: 20 mg Methimazole (Tapazole) 5 mg PO MWF [facility] Last Admin: 01/13/18 10:45 Dose: 5 mg Metoprolol Tartrate (Lopressor) 50 mg PO HS [facility] Last Admin: 01/12/18 23:54 Dose: Not Given Mupirocin (Bactroban Ointment) 0 gm TOP BID [facility] Last Admin: 01/12/18 17:25 Dose: 1 applic Physical Exam - Constitutional Appears: Non-toxic, No Acute Distress - Head Exam Head Exam: NORMAL INSPECTION - Eye Exam Eye Exam: Normal appearance - Respiratory Exam Respiratory Exam: Clear to Auscultation Bilateral, NORMAL BREATHING PATTERN - Cardiovascular Exam Cardiovascular Exam: REGULAR RHYTHM, +S1, +S2. absent: Diastolic murmur, Gallop - GI/Abdominal Exam GI & Abdominal Exam: Soft. absent: Tenderness - Extremities Exam Extremities exam: Positive for: normal capillary refill, pedal pulses present Additional comments: soft compartments 2+ DP and PT pulses gross neuromotor function intact - Skin Additional comments: Chronic Venous stasis dermatitis noted in LLE with diffuse circumferential edema and erythema of the supreior calf. Area medial left calf approximately 3cm in diamter with overlying skin necrosis and skin sloughing. Small amount of dark serosanguinous drainage from necrotic area. No fluctuance or crepitus noted. Results - Vital Signs Recent Vital Signs: Last Vital Signs Temp 98.6 F 01/13/18 06:00 Pulse 61 01/13/18 06:00 Resp 20 01/13/18 06:00 BP 126/66 01/13/18 10:45 Pulse Ox 97 01/13/18 06:00 - Labs Result Diagrams: 01/13/18 07:00 01/13/18 07:00 Labs: Laboratory Results - last 24 hr 01/12/18 01/13/18 01/13/18 10:20 07:00 07:00 WBC 15.3 H RBC 4.14 Hgb 10.8 L Hct 32.4 L MCV 78.3 L MCH 26.1 MCHC 33.3 RDW 15.1 H Plt Count 301 MPV 10.6 Gran % 78.9 H Lymph % (Auto) 13.0 L Harnett % (Auto) 6.5 H Eos % (Auto) 1.4 L Baso % (Auto) 0.2 Gran # 12.06 H Lymph # (Auto) 2.0 Harnett # (Auto) 1.0 H Eos # (Auto) 0.2 Baso # (Auto) 0.03 ESR 110 H Sodium 138 Potassium 4.2 Chloride 103 Carbon Dioxide 28 Anion Gap 12 BUN 13 Creatinine 0.6 L Est GFR ( Amer) > 60 Est GFR (Non-Af Amer) > 60 Random Glucose 110 Calcium 8.1 L Phosphorus 3.1 Magnesium 2.4 H Total Bilirubin 0.9 AST 151 H D ALT 238 H Alkaline Phosphatase 287 H C-React Prot High Sens Total Protein 6.4 Albumin 3.0 Globulin 3.3 Albumin/Globulin Ratio 0.9 L Vitamin B12 714 01/13/18 07:00 WBC RBC Hgb Hct MCV MCH MCHC RDW Plt Count MPV Gran % Lymph % (Auto) Harnett % (Auto) Eos % (Auto) Baso % (Auto) Gran # Lymph # (Auto) Harnett # (Auto) Eos # (Auto) Baso # (Auto) ESR Sodium Potassium Chloride Carbon Dioxide Anion Gap BUN Creatinine Est GFR ( Amer) Est GFR (Non-Af Amer) Random Glucose Calcium Phosphorus Magnesium Total Bilirubin AST ALT Alkaline Phosphatase C-React Prot High Sens > 15.00 H Total Protein Albumin Globulin Albumin/Globulin Ratio Vitamin B12 - Imaging and Cardiology CT left lower leg Status: Image reviewed by me, Report reviewed by me mri left lower leg Status: Image reviewed by me, Report reviewed by me Assessment & Plan - Assessment and Plan (Free Text) Assessment: 67 y/o F with leukocytosis, LLE stasis dermatits with cellulitis and concern for abscess vs necrotizing fasciitis Plan: - OR tomorrow for incision and drainage - Continuous elevation of extremity - MRI and CT LLE with cellulitis, negative for abscess, osteomyelitis/gas forming infection - b/l LE u/s negative for DVT - Further recs per Dr. Marko Borja PGY1
--- NOTE | 2018-01-13 12:17 | CT ---
Date of service: 01/13/2018 PROCEDURE: CT of the left lower extremity HISTORY: r/o necrotizing fasciitis COMPARISON: TECHNIQUE: Radiation dose: Total exam DLP = 206 mGy-cm. This CT exam was performed using one or more of the following dose reduction techniques: Automated exposure control, adjustment of the mA and/or kV according to patient size, and/or use of iterative reconstruction technique. CT of the left lower extremity was performed with sagittal and coronal reconstructions. 100 cc of Omni 350 FINDINGS: There is diffuse subcutaneous edema around the inferior aspect of the left lower extremity. There is no evidence of a gas-forming infection. There is no evidence of osteomyelitis IMPRESSION: No evidence of gas-forming infection
--- NOTE | 2018-01-13 13:33 | CP.PCM.PN ---
Subjective - Date & Time of Evaluation Date of Evaluation: 01/13/18 Time of Evaluation: 13:00 - Subjective Subjective: Infectious Disease Follow Up: January 13, 2018 67 year old female with PMH of hypertension and chronic venous insufficiency presenting to the ER for 6 day history of worsening left leg pain and swelling. Patient has history of chronic insufficiency in both lower legs and has been seeing Dr. Romario DPM for wound care. Patient saw her bid clerk, Dr. Partida, on Thursday and ultrasound of her legs was negative at that time. Today , patient states pain and swelling in left leg was worsening. She denies recent infections and trauma to her legs. She denies CP, SOB, fevers, abdominal pain, nausea, vomiting, chills, recent sickness, sick contacts at home, and recent travel. The patient apparently also had a DVT to left lower extremity in the past treated with surgical venous laserectomy. Very slight improvement to the superinfection of the left leg pain. Still complains of pain to the left lower leg. MRI pending. Objective - Vital Signs/Intake and Output Vital Signs (last 24 hours): Temp Pulse Resp BP Pulse Ox 98.6 F 61 20 126/66 97 01/13/18 06:00 01/13/18 06:00 01/13/18 06:00 01/13/18 10:45 01/13/18 06:00 Intake and Output: 01/13/18 01/13/18 06:59 18:59 Intake Total 800 Balance 800 - Medications Medications: Current Medications Aspirin (Aspirin Chewable) 81 mg PO DAILY [facility] Last Admin: 01/12/18 11:39 Dose: 81 mg Diphenhydramine HCl (Benadryl) 25 mg PO HS PRN PRN Reason: Insomnia Last Admin: 01/13/18 00:02 Dose: 25 mg Ferrous Sulfate (Feosol) 324 mg PO TID [facility] Last Admin: 01/12/18 14:00 Dose: 324 mg Furosemide (Lasix) 40 mg PO DAILY [facility] Last Admin: 01/13/18 10:45 Dose: 40 mg Home Med (Home Med) 1 unit PO HS [facility] Last Admin: 01/12/18 23:47 Dose: Not Given Vancomycin HCl (Vancomycin 1gm) 1 gm in 250 mls @ 167 mls/hr IVPB Q12H [facility] PRN Reason: Protocol Last Admin: 01/13/18 05:06 Dose: 167 mls/hr Cefepime HCl (Maxipime 1gm) 1 gm in 100 mls @ 100 mls/hr IVPB Q12 [facility] PRN Reason: Protocol Last Admin: 01/12/18 23:53 Dose: 100 mls/hr Dextrose/Sodium Chloride (Dextrose 5%/0.9% Ns 1000 Ml) 1,000 mls @ 70 mls/hr IV .[id number] [facility] Ibuprofen (Motrin Tab) 400 mg PO Q6H PRN PRN Reason: Fever >100.4 F Last Admin: 01/12/18 23:53 Dose: 400 mg Lisinopril (Zestril) 20 mg PO DAILY [facility] Last Admin: 01/13/18 10:44 Dose: 20 mg Methimazole (Tapazole) 5 mg PO MWF [facility] Last Admin: 01/13/18 10:45 Dose: 5 mg Metoprolol Tartrate (Lopressor) 50 mg PO HS [facility] Last Admin: 01/12/18 23:54 Dose: Not Given Mupirocin (Bactroban Ointment) 0 gm TOP BID [facility] Last Admin: 01/12/18 17:25 Dose: 1 applic - Labs Labs: 01/13/18 07:00 01/13/18 07:00 PT 15.1 SECONDS (9.4-12.5) H 01/10/18 10:27 INR 1.31 (0.93-1.08) H 01/10/18 10:27 APTT 25.5 Seconds (25.1-36.5) 01/10/18 10:27 - Constitutional Appears: Non-toxic, No Acute Distress, Chronically Ill - Head Exam Head Exam: ATRAUMATIC, NORMOCEPHALIC - Eye Exam Eye Exam: EOMI, PERRL Pupil Exam: NORMAL ACCOMODATION, PERRL - ENT Exam ENT Exam: Mucous Membranes Moist, Normal External Ear Exam, TM's Normal Bilaterally - Neck Exam Neck Exam: Full ROM, Normal Inspection - Respiratory Exam Respiratory Exam: Clear to Ausculation Bilateral, NORMAL BREATHING PATTERN. absent: Rales, Rhonchi, Wheezes - Cardiovascular Exam Cardiovascular Exam: REGULAR RHYTHM, RRR, +S1, +S2 - GI/Abdominal Exam GI & Abdominal Exam: Soft, Normal Bowel Sounds. absent: Distended, Tenderness - Extremities Exam Extremities Exam: Full ROM, Joint Swelling, Pedal Edema Additional comments: lower left leg is tender, swollen, erythematous, and edematous with ulcerations present. pulse difficult to palpate in left leg due to swelling. pulse is +2 in right leg. Sensation is diminished in left leg compared to right. Increasing size of bullae in anterior left leg. - Neurological Exam Neurological Exam: Alert, Awake, CN II-XII Intact, Oriented x3 - Psychiatric Exam Psychiatric exam: Normal Affect, Normal Mood - Skin Skin Exam: Erythema Additional comments: lower left leg is tender, swollen, erythematous, and edematous with ulcerations present. pulse difficult to palpate in left leg due to swelling. pulse is +2 in right leg. Sensation is diminished in left leg compared to right. Very slight improvement from yesterday. Assessment and Plan - Assessment and Plan (Free Text) Assessment: 67 yo female with PVD of the lower extremities and history of HTN presenting with erythema, edema, pain, and tenderness to the left leg with open ulcerations and swelling of the same leg. Given one dose of Vancomycin IV. Supportive care. Will continue with Vancomycin and Cefepime IV at this time. No history of renal insufficiency. Right ankle tendon repair in April 2017. Outward signs of peripheral vascular disease. Monitor LFTs. Patient revealed further information supporting long standing peripheral vascular disease. MRI pending. Possible I&D today. Leukocytosis slightly uptrended to 15.3 today. Still with pain to left lower leg. Being evaluated by Surgery. Thank you for allowing me to participate in the care of the patient, we will follow with you.
--- NOTE | 2018-01-13 14:26 | MRI ---
Date of service: 01/13/2018 PROCEDURE: MRI of the left lower extremity without HISTORY: r/o abcess for I/D today COMPARISON: TECHNIQUE: MRI of the left lower extremity was performed from the knee joint to the ankles. The study is performed in multiple planes using multiple pulse sequences FINDINGS: There is a large amount of subcutaneous edema around the lower leg. There is mild muscular edema specially within the gastrocnemius. There is no evidence of a discrete fluid collection. There is no evidence of osteomyelitis. IMPRESSION: Cellulitis left lower extremity. No discrete abscess collection
[2018-01-13] MEDS: Cefepime 1gm in NS 100ml 1 GM/100 ML BAG IVPB SCH ×2 (15:05→22:12)
[2018-01-14] MEDS: PRAVASTATIN 40MG PO SCH ×2 (05:08→22:28)
[2018-01-14] MEDS: Vancomycin 1gm in NS 250ml 1 GM/250 ML BAG IVPB SCH ×2 (05:11→17:57)
[2018-01-14 07:18] LABS: HEMOGLOBIN 10.3 g/dL (12.0-16.0); MEAN CELL VOLUME 77.4 fl (80.0-105.0); MEAN CORPUSCULAR HEMOGLOBIN 25.9 pg (25.0-35.0); MEAN CORPUSCULAR HGB CONC 33.4 g/dl (31.0-37.0); RBC 3.98 10^6/uL (3.5-6.1); RED CELL DISTRIBUTION WIDTH 14.9 % (11.5-14.5); WHITE BLOOD COUNT 16.6 10^3/ul (4.5-11.0)
[2018-01-14] MEDS ORDERED: Midazolam 2 MG/2 ML VIAL ONE (07:28)
[2018-01-14] MEDS ORDERED: Lidocaine 1% Inj (20ml) ONE ×2 (07:29→07:33)
[2018-01-14] MEDS ORDERED: Propofol 10 mg/ml Inj (20 ML) ONE ×2 (07:29→08:03)
[2018-01-14 07:31] LABS: BLOOD UREA NITROGEN 14 mg/dL (7-21); CALCIUM 8.1 mg/dL (8.4-10.5); GFR AFRICAN-AMERICAN > 60; GFR NON-AFRICAN AMERICAN > 60
[2018-01-14] MEDS ORDERED: Bupivacaine 0.5% Inj(30mL) ONE (07:34)
[2018-01-14 07:35] LABS: INR 1.51 (0.93-1.08); PROTHROMBIN TIME 17.5 SECONDS (9.4-12.5)
[2018-01-14 07:36] LABS: PARTIAL THROMBOPLASTIN TIME 23.5 Seconds (25.1-36.5)
--- NOTE | 2018-01-14 08:05 | PN ---
DATE: 01/13/2018 PULMONARY PROGRESS NOTE REFERRING PHYSICIAN: Prema Strong MD. SUBJECTIVE: She is lying in the bed, head at 45 degree, going for x-ray of the left leg. No cough, no sputum production. No nausea, no vomiting. No diarrhea. OBJECTIVE: GENERAL: In no acute distress. VITAL SIGNS: T-max 100.8, temperature 98.6, heart rate 61, respiratory rate 18, blood pressure 126/66, pulse oximetry 97% on room air. HEENT: Moist mucous membranes. Crowded airway. NECK: Supple. No JVD. LUNGS: Have fair airflow with rhonchi. HEART: S1 and S2. ABDOMEN: Soft, nontender, no organomegaly. EXTREMITIES: Have chronic changes in the left lower extremity with abscess, erythema, and discoloration. NEUROLOGIC: Awake and alert. Follows simple commands. MEDICATIONS: She is on aspirin 81 mg daily, Bactroban ointment to affected area twice a day, Benadryl 25 mg at bedtime p.r.n., IV fluid dextrose with normal saline 70 mL/hour, ferrous sulfate 324 mg three times a day, Lasix 40 mg daily, metoprolol tartrate 50 mg at bedtime, cefepime 1 g IV every 12 hours, Motrin 400 mg every 6 hours p.r.n., Tapazole 5 mg [id number], vancomycin 1 g IV every 12 hours, Zestril 20 mg daily. LABORATORY DATA: Shows hemoglobin 10.8, hematocrit 32.4, WBC 15.3, platelet is 301. Sodium 138, potassium 4.2, chloride 103, bicarbonate 28, BUN 13, creatinine 0.6, glucose 110, calcium is 8.1, magnesium 2.4. AST 151, ALT 238, alk phos is 287. C-reactive protein over 15. Albumin is 3. B12 is 714. Microbiology: Blood culture, urine culture, there is no growth. CAT scan of lower extremity done which shows diffuse subcutaneous edema around the inferior aspects of the left lower extremity. There is no evidence of gas forming infection. There is no evidence of osteomyelitis. Also had MRI of the leg done, which shows cellulitis, left lower extremity. No discrete abscess or fluid collection reported. IMPRESSION AND PLAN: Recurrent cellulitis of lower extremity with nonhealing ulcers, hypertension, hypothyroidism, obesity, may have sleep apnea syndrome. CT suggested of pulmonary hypertension. Pulmonary point of view, she is doing okay. Keep head at 45 degrees, sleep apnea precaution, careful with sedation, antibiotics as per Infectious Disease. Vascular Surgery followup. Thank you and we will follow with you. Radha Tellez MD
--- NOTE | 2018-01-14 08:32 | PCM.SURG1 ---
Surgeon's Initial Post Op Note - Surgeon's Notes Surgeon: Dr. Zhu Communications Professor: Shantelle Aviles, Pgy2 Type of Anesthesia: IV Sedation Pre-Operative Diagnosis: Cellulitis, possible abscess of the left lower leg Operative Findings: lateral and medial lower leg extensive abscesses extending superiorly with a posterior tract between the two sides Post-Operative Diagnosis: Multiple abscesses of the left lower leg, cellulitis Operation Performed: incision and drainage of multiple abscesses of the left lower leg, debridement of necrotic tissue Specimen/Specimens Removed: culture medial left lower leg, culture left lateral lower leg, debrided tissue Estimated Blood Loss: EBL {In ML}: 10 Blood Products Given: N/A Drains Used: Shobha (2 lateral, 1 medial, iodoform gauze packing) Post-Op Condition: Fair Date of Surgery/Procedure: 01/14/18 Time of Surgery/Procedure: 08:00
[2018-01-14] MEDS ORDERED: Morphine 4 mg/ml ISec IVP PRN (08:35)
[2018-01-14] MEDS ORDERED: HYDROmorphone 0.5 mg/0.5 ml ISec IVP PRN (08:50)
[2018-01-14] MEDS ORDERED: HYDROmorphone 0.5 mg/0.5 ml ISec ONE (08:53)
[2018-01-14] MEDS: Mupirocin 2% Ointment 15 GM TUBE TOP SCH (09:30)
[2018-01-14] MEDS: Cefepime 1gm in NS 100ml 1 GM/100 ML BAG IVPB SCH ×2 (10:36→21:37)
--- NOTE | 2018-01-14 11:45 | PN ---
DATE: 01/13/2018 SUBJECTIVE: Patient was seen and examined at bedside on 01/13/2018. Patient is lying down comfortably, went for x-rays of the left foot. No fever. No chills. No nausea, vomiting or diarrhea. No hematuria or hematochezia. No headache or dizziness. PHYSICAL EXAMINATION: VITAL SIGNS: Temperature 98.6, pulse is 61, blood pressure 126/66, respiratory rate 20, T-max 100.8. HEENT: Head normocephalic, atraumatic. Eyes PERRLA. Extraocular muscles intact. Conjunctivae clear. Nose patent. Mucous membranes moist. NECK: Supple. No carotid bruits or thyromegaly. CHEST: Bilaterally symmetrical. HEART: S1, S2 positive. LUNGS: Clear to auscultation. ABDOMEN: Soft. Bowel sounds are present. No organomegaly. EXTREMITIES: No edema. No cyanosis. NEUROLOGIC: Patient is awake, alert. Follow simple commands. MEDICATIONS: Aspirin, Bactroban ointment, Benadryl, Colace, Dilaudid, iron, Lasix, Lopressor, cefepime, morphine, Motrin, Tapazole, Zestril, Zofran. LABORATORY DATA: White blood cell is 16.6, hemoglobin 10.3, hematocrit 30.8, platelets 295. Sodium 138, potassium 4.2, BUN 13, creatinine 0.6, calcium 8.1, magnesium 2.4, AST 151, ALT 238. ASSESSMENT AND PLAN: Ms. Xenia Hall is a 67-year-old lady with leukocytosis, anemia, hypocalcemia, hypermagnesemia, abnormal liver function test, hematuria, cellulitis of lower extremities with nonhealing ulcers, history of recurrent hypertension, hypothyroidism, obesity, sleep apnea syndrome. CT suggested of pulmonary hypertension; sepsis, having fever also. Continue antibiotics as per Infectious Disease. Vascular Surgery followup. Patient is going for surgery. According to Dr. Tellez's pulmonary point of view. she is doing okay, keep head elevated at 45 degrees, sleep apnea precautions, careful with sedation. Discussion done with the patient at the bedside. Appreciate Dr. Tellez, Dr. Zhu's notes. Repeat labs. We will follow up. Prema Strong MD [facility] # [id number] ISAMAR
[2018-01-14] MEDS: HYDROmorphone 0.5 mg/0.5 ml ISec IVP PRN (17:59)
--- NOTE | 2018-01-14 18:11 | CP.PCM.PN ---
Subjective - Date & Time of Evaluation Date of Evaluation: 01/14/18 Time of Evaluation: 16:00 - Subjective Subjective: Infectious Disease Follow Up: January 14, 2018 67 year old female with PMH of hypertension and chronic venous insufficiency presenting to the ER for 6 day history of worsening left leg pain and swelling. Patient has history of chronic insufficiency in both lower legs and has been seeing Dr. Romario DPM for wound care. Patient saw her closing coordinator, Dr. Partida, on Thursday and ultrasound of her legs was negative at that time. Today , patient states pain and swelling in left leg was worsening. She denies recent infections and trauma to her legs. She denies CP, SOB, fevers, abdominal pain, nausea, vomiting, chills, recent sickness, sick contacts at home, and recent travel. The patient apparently also had a DVT to left lower extremity in the past treated with surgical venous laserectomy. Very slight improvement to the superinfection of the left leg pain. Still complains of pain to the left lower leg. MRI and CT did not show discrete abscess formation. Taken to OR today and two abscesses (lateral and medial lower leg) were found with communication between the abscesses posteriorly. Debridement performed. Objective - Vital Signs/Intake and Output Vital Signs (last 24 hours): Temp Pulse Resp BP Pulse Ox 98.3 F 74 14 155/70 H 95 01/14/18 14:00 01/14/18 14:00 01/14/18 14:00 01/14/18 14:00 01/14/18 14:00 Intake and Output: 01/14/18 01/14/18 06:59 18:59 Intake Total 2240 Balance 2240 - Medications Medications: Current Medications Aspirin (Aspirin Chewable) 81 mg PO DAILY [facility] Last Admin: 01/14/18 09:30 Dose: Not Given Diphenhydramine HCl (Benadryl) 25 mg PO HS PRN PRN Reason: Insomnia Last Admin: 01/13/18 00:02 Dose: 25 mg Docusate Sodium (Colace) 100 mg PO DAILY [facility] Last Admin: 01/14/18 09:30 Dose: Not Given Ferrous Sulfate (Feosol) 324 mg PO TID [facility] Last Admin: 01/14/18 09:30 Dose: Not Given Furosemide (Lasix) 40 mg PO DAILY [facility] Last Admin: 01/14/18 09:30 Dose: Not Given Home Med (Home Med) 1 unit PO [facility] Last Admin: 01/14/18 05:08 Dose: Not Given Hydromorphone HCl (Dilaudid) 0.5 mg IVP Q4H PRN PRN Reason: Pain, severe (8-10) Vancomycin HCl (Vancomycin 1gm) 1 gm in 250 mls @ 167 mls/hr IVPB Q12H [facility] PRN Reason: Protocol Last Admin: 01/14/18 05:11 Dose: 167 mls/hr Cefepime HCl (Maxipime 1gm) 1 gm in 100 mls @ 100 mls/hr IVPB Q12 [facility] PRN Reason: Protocol Last Admin: 01/14/18 10:36 Dose: 100 mls/hr Dextrose/Sodium Chloride (Dextrose 5%/0.9% Ns 1000 Ml) 1,000 mls @ 115 mls/hr IV .Q8H42M [facility] Ibuprofen (Motrin Tab) 400 mg PO Q6H PRN PRN Reason: Fever >100.4 F Last Admin: 01/13/18 20:58 Dose: 400 mg Lisinopril (Zestril) 20 mg PO DAILY [facility] Last Admin: 01/14/18 10:36 Dose: 20 mg Methimazole (Tapazole) 5 mg PO [facility] [place] Admin: 01/13/18 10:45 Dose: 5 mg Metoprolol Tartrate (Lopressor) 50 mg PO [facility] Last Admin: 01/13/18 21:46 Dose: 50 mg Morphine Sulfate (Morphine) 4 mg IVP Q4H PRN PRN Reason: Pain, moderate (4-7) Mupirocin (Bactroban Ointment) 0 gm TOP BID [facility] Last Admin: 01/14/18 09:30 Dose: Not Given Ondansetron HCl (Zofran Inj) 4 mg IVP Q6H PRN PRN Reason: Nausea/Vomiting - Labs Labs: 01/14/18 06:30 01/14/18 06:30 PT 17.5 SECONDS (9.4-12.5) H 01/14/18 06:30 INR 1.51 (0.93-1.08) H 01/14/18 06:30 APTT 23.5 Seconds (25.1-36.5) L 01/14/18 06:30 - Constitutional Appears: Non-toxic, No Acute Distress, Chronically Ill - Head Exam Head Exam: ATRAUMATIC, NORMOCEPHALIC - Eye Exam Eye Exam: EOMI, PERRL Pupil Exam: NORMAL ACCOMODATION, PERRL - ENT Exam ENT Exam: Mucous Membranes Moist, Normal External Ear Exam, TM's Normal Bilaterally - Neck Exam Neck Exam: Full ROM, Normal Inspection - Respiratory Exam Respiratory Exam: Clear to Ausculation Bilateral, NORMAL BREATHING PATTERN. absent: Rales, Rhonchi, Wheezes - Cardiovascular Exam Cardiovascular Exam: REGULAR RHYTHM, RRR, +S1, +S2 - GI/Abdominal Exam GI & Abdominal Exam: Soft, Normal Bowel Sounds. absent: Distended, Tenderness - Extremities Exam Extremities Exam: Full ROM, Joint Swelling, Pedal Edema Additional comments: lower left leg is tender, swollen, erythematous, and edematous with ulcerations present. pulse difficult to palpate in left leg due to swelling. pulse is +2 in right leg. Sensation is diminished in left leg compared to right. Increasing size of bullae in anterior left leg. Taken to OR today for I&D and debridement finding two abscesses in the lateral and medial lower left leg with posterior communications. - Neurological Exam Neurological Exam: Alert, Awake, CN II-XII Intact, Oriented x3 - Psychiatric Exam Psychiatric exam: Normal Affect, Normal Mood - Skin Skin Exam: Erythema Additional comments: lower left leg is tender, swollen, erythematous, and edematous with ulcerations present. pulse difficult to palpate in left leg due to swelling. pulse is +2 in right leg. Sensation is diminished in left leg compared to right. S/P I&D of the left lower leg. Assessment and Plan - Assessment and Plan (Free Text) Assessment: 67 yo female with PVD of the lower extremities and history of HTN presenting with erythema, edema, pain, and tenderness to the left leg with open ulcerations and swelling of the same leg. Given one dose of Vancomycin IV. Supportive care. Will continue with Vancomycin and Cefepime IV at this time. No history of renal insufficiency. Right ankle tendon repair in April 2017. Outward signs of peripheral vascular disease. Monitor LFTs. Patient revealed further information supporting long standing peripheral vascular disease. S/P I&D today. Leukocytosis slightly uptrended to 15.3 today. Still with pain to left lower leg. Surgery found abscesses in the left lower leg in lateral and medial aspects with posterior communication. Thank you for allowing me to participate in the care of the patient, we will follow with you.
--- NOTE | 2018-01-14 21:02 | PN ---
DATE: 01/14/2018 PULMONARY PROGRESS NOTE REFERRING PHYSICIAN: Prema Strong MD. SUBJECTIVE: She is lying in the bed at 45 degree. Night was unremarkable. No headache. No rhinitis. No nausea, no vomiting. No diarrhea. Still has left lower extremity pain. OBJECTIVE: GENERAL: In no acute distress. VITAL SIGNS: Temperature is 98, heart rate 74, respiratory rate 20, blood pressure 168/70, pulse ox 95% on room air. HEENT: Moist mucous membranes. Crowded airway. NECK: Supple. No JVD. LUNGS: Have fair airflow with rhonchi. HEART: S1 and S2. ABDOMEN: Soft, nontender, no organomegaly. EXTREMITIES: Left leg has dressing, erythema is improved, has a discoloration. NEUROLOGIC: Awake and alert. Follows simple commands. MEDICATIONS: She is on aspirin 81 mg daily, Bactroban ointment to affected area twice a day, Benadryl 25 mg at bedtime p.r.n., Colace 100 mg daily, dextrose 5% with mL/hour, Dilaudid 0.5 mg every 4 hours p.r.n., ferrous sulfate 324 mg three times a day, insulin coverage, Lasix 40 mg daily, metoprolol tartrate 50 mg at bedtime, cefepime 1 g IV every 12 hours, morphine 4 mg every 4 hours p.r.n., Motrin 400 mg every 6 hours p.r.n.; Tapazole 5 mg Thursday, Thursday and Thursday; vancomycin 1 g IV every 12 hours, Zestril 20 mg daily, Zofran on p.r.n. basis. LABORATORY DATA: Shows hemoglobin 10.3, hematocrit 30.8, WBC 16,000, platelet is 295. INR 1.51. PTT 24. Sodium 140, potassium 4.3, chloride 102, bicarbonate 30, BUN 14, creatinine 0.6, glucose 114, calcium is 8.1. C-reactive protein more than 15. Microbiology: Blood culture and urine culture, there is no growth. IMPRESSION AND PLAN: Recurrent cellulitis and nonhealing ulcer with abscess, status post debridement, hypertension, hypothyroid, obesity. May have sleep apnea syndrome. May have pulmonary hypertension. Pulmonary point of view, doing okay. Keep head at 45 degrees, avoid sedation, bronchodilator, antibiotics, elevate left lower extremity, surgical followup. Follow up labs in the morning. Thank you and we will follow with you. Radha Tellez MD
--- NOTE | 2018-01-15 05:07 | PN ---
DATE: 01/14/2018 SUBJECTIVE: The patient is a 67-year-old female. Patient was seen and examined at the bedside on 01/14/2018, complaining about pain. Night was unremarkable. No headache. No fever. No chills. No diarrhea. Still having left lower extremity pain. PHYSICAL EXAMINATION: VITAL SIGNS: Temperature 98, heart rate 74, respiratory rate 20, blood pressure 150/70, pulse oximetry 95% on room air. HEENT: Head: Normocephalic, atraumatic. Eyes: PERRLA. Extraocular muscles intact. Conjunctivae clear. Nose patent. Mucous membranes moist. NECK: Supple. No carotid bruit. No JVD or thyromegaly. CHEST: Bilaterally symmetrical. HEART: S1 and S2 positive. LUNGS: Have fair airflow with few rhonchi. ABDOMEN: Soft. No organomegaly. EXTREMITIES: Left leg had dressing. Erythema improved, has discoloration, has multiple abscesses, may be needed to be drainage. NEUROLOGICAL: Awake and alert. Follow simple commands. MEDICATIONS: Aspirin, Bactroban cream, Benadryl, Colace, Dilaudid, insulin coverage, metoprolol, cefepime, morphine, Motrin, Tapazole, vancomycin, Zestril, Zofran. LABORATORY DATA: Hemoglobin 10.3, hematocrit 30.8, white blood cells 16,000, platelets 295. Sodium 140, potassium 4.3, BUN 14, creatinine 0.6. ASSESSMENT AND PLAN: Ms. Xenia Hall is a 67-year-old female with recurrent cellulitis and nonhealing ulcer with abscess, status post debridement, hypertension, hypothyroidism, obesity, sleep apnea syndrome, may be have pulmonary hypertension. Keep head elevated at 45 degrees. Avoid sedation. Continue bronchodilators, antibiotics. Elevate left lower extremity. Surgical followup. May have decided to go tomorrow for abscess debridement. Discussion done with nurse practitioner. We will follow up. Prema Strong MD
[2018-01-15] MEDS: Dextrose 5%/0.9% NS 1,000 ML IV SCH (05:31)
[2018-01-15] MEDS: Vancomycin 1gm in NS 250ml 1 GM/250 ML BAG IVPB SCH ×2 (05:33→17:04)
[2018-01-15 07:38] LABS: BASO # 0.03 K/mm3 (0.0-2.0); BASO % 0.2 % (0.0-3.0); EOS # 0.2 (0.0-0.7); EOS % 1.8 % (1.5-5.0); GRAN # 9.68 (1.4-6.5); GRAN % 77.6 % (50.0-68.0); HEMOGLOBIN 9.6 g/dL (12.0-16.0); LYMPH # 1.7 (1.2-3.4); LYMPH % 13.7 % (22.0-35.0); MEAN CELL VOLUME 77.6 fl (80.0-105.0); MEAN CORPUSCULAR HEMOGLOBIN 25.9 pg (25.0-35.0); MEAN CORPUSCULAR HGB CONC 33.4 g/dl (31.0-37.0); MEAN PLATELET VOLUME 10.1 fl (7.0-11.0); MONO # 0.8 (0.1-0.6); MONO % 6.7 % (1.0-6.0); RBC 3.7 10^6/uL (3.5-6.1); RED CELL DISTRIBUTION WIDTH 15.2 % (11.5-14.5); WHITE BLOOD COUNT 12.5 10^3/ul (4.5-11.0)
[2018-01-15 08:01] LABS: BLOOD UREA NITROGEN 12 mg/dL (7-21); CALCIUM 7.8 mg/dL (8.4-10.5); GFR AFRICAN-AMERICAN > 60; GFR NON-AFRICAN AMERICAN > 60
[2018-01-15] MEDS: HYDROmorphone 0.5 mg/0.5 ml ISec IVP PRN ×2 (09:03→18:27)
[2018-01-15] MEDS: Cefepime 1gm in NS 100ml 1 GM/100 ML BAG IVPB SCH ×2 (11:12→22:07)
[2018-01-15] MEDS: methIMAzole 5 MG TAB PO SCH (11:12)
[2018-01-15] MEDS: Mupirocin 2% Ointment 15 GM TUBE TOP SCH (11:13)
--- NOTE | 2018-01-15 11:28 | CP.PCM.PN ---
Subjective - Date & Time of Evaluation Date of Evaluation: 01/15/18 Time of Evaluation: 07:20 - Subjective Subjective: Patient seen and examined this AM. Patient states that pain is improved this am. Denies fevers or chills. Objective - Vital Signs/Intake and Output Vital Signs (last 24 hours): Temp Pulse Resp BP Pulse Ox 98.8 F 58 L 20 131/64 95 01/15/18 06:00 01/15/18 06:00 01/15/18 06:00 01/15/18 11:11 01/15/18 06:00 Intake and Output: 01/15/18 01/15/18 06:59 18:59 Intake Total 1900 Balance 1900 - Medications Medications: Current Medications Aspirin (Aspirin Chewable) 81 mg PO DAILY [facility] Last Admin: 01/15/18 11:12 Dose: 81 mg Diphenhydramine HCl (Benadryl) 25 mg PO HS PRN PRN Reason: Insomnia Last Admin: 01/13/18 00:02 Dose: 25 mg Docusate Sodium (Colace) 100 mg PO DAILY [facility] Last Admin: 01/15/18 11:11 Dose: 100 mg Ferrous Sulfate (Feosol) 324 mg PO TID [facility] Last Admin: 01/15/18 11:12 Dose: 324 mg Furosemide (Lasix) 40 mg PO DAILY [facility] Last Admin: 01/15/18 11:11 Dose: 40 mg Home Med (Home Med) 1 unit PO HS [facility] Last Admin: 01/14/18 22:28 Dose: Not Given Hydromorphone HCl (Dilaudid) 0.5 mg IVP Q4H PRN PRN Reason: Pain, severe (8-10) Last Admin: 01/15/18 09:03 Dose: 0.5 mg Vancomycin HCl (Vancomycin 1gm) 1 gm in 250 mls @ 167 mls/hr IVPB Q12H [facility] PRN Reason: Protocol Last Admin: 01/15/18 05:33 Dose: 167 mls/hr Cefepime HCl (Maxipime 1gm) 1 gm in 100 mls @ 100 mls/hr IVPB Q12 [facility] PRN Reason: Protocol Last Admin: 01/15/18 11:12 Dose: 100 mls/hr Dextrose/Sodium Chloride (Dextrose 5%/0.9% Ns 1000 Ml) 1,000 mls @ 115 mls/hr IV .Q8H42M [facility] Last Admin: 01/15/18 05:31 Dose: 115 mls/hr Ibuprofen (Motrin Tab) 400 mg PO Q6H PRN PRN Reason: Fever >100.4 F Last Admin: 01/13/18 20:58 Dose: 400 mg Lisinopril (Zestril) 20 mg PO DAILY [facility] Last Admin: 01/15/18 11:11 Dose: 20 mg Methimazole (Tapazole) 5 mg PO MWF [facility] Last Admin: 01/15/18 11:12 Dose: 5 mg Metoprolol Tartrate (Lopressor) 50 mg PO HS [facility] Last Admin: 01/14/18 21:37 Dose: 50 mg Morphine Sulfate (Morphine) 4 mg IVP Q4H PRN PRN Reason: Pain, moderate (4-7) Mupirocin (Bactroban Ointment) 0 gm TOP BID [facility] Last Admin: 01/15/18 11:13 Dose: Not Given Ondansetron HCl (Zofran Inj) 4 mg IVP Q6H PRN PRN Reason: Nausea/Vomiting Last Admin: 01/14/18 20:05 Dose: 4 mg - Labs Labs: 01/15/18 07:15 01/15/18 07:15 PT 17.5 SECONDS (9.4-12.5) H 01/14/18 06:30 INR 1.51 (0.93-1.08) H 01/14/18 06:30 APTT 23.5 Seconds (25.1-36.5) L 01/14/18 06:30 - Constitutional Appears: Well, Non-toxic, No Acute Distress - Head Exam Head Exam: ATRAUMATIC, NORMOCEPHALIC - Eye Exam Eye Exam: Normal appearance. absent: Conjunctival injection, Scleral icterus - ENT Exam ENT Exam: Mucous Membranes Moist, Normal Oropharynx - Respiratory Exam Respiratory Exam: NORMAL BREATHING PATTERN. absent: Accessory Muscle Use, Respiratory Distress - Cardiovascular Exam Cardiovascular Exam: RRR - GI/Abdominal Exam GI & Abdominal Exam: Soft. absent: Distended, Tenderness - Extremities Exam Additional comments: left lower leg with dressing intact with moderate sero-purulent drainage, 1 wound on medial lower leg and 1 on lateral lower leg with surrounding necrotic tissue and necrotic tissue at the base in both, purulent fluid drainage. [address]. Swelling and erythema improved, all compartments soft. Gross neuromotor exam intact - Neurological Exam Neurological Exam: Alert, Awake, Oriented x3 - Psychiatric Exam Psychiatric exam: Normal Affect, Normal Mood - Skin Skin Exam: Dry, Normal Color, Warm Assessment and Plan - Assessment and Plan (Free Text) Assessment: 67F POD#1 s/p incision and debridement of left lower leg abscesses Plan: Continue to monitor lower leg closely May need further operative management 01/16. Will see in AM and decide NPO past midnight except meds CBC w/diff, PT PRN pain medication DVT ppx--hold in AM Hold ASA for possible OR antibiotics per ID Discussed and examined with Dr. Marko Aviles, PGY2
--- NOTE | 2018-01-15 15:28 | CP.PCM.PN ---
Subjective - Date & Time of Evaluation Date of Evaluation: 01/15/18 Time of Evaluation: 14:30 - Subjective Subjective: Infectious Disease Follow Up: January 15, 2018 67 year old female with PMH of hypertension and chronic venous insufficiency presenting to the ER for 6 day history of worsening left leg pain and swelling. Patient has history of chronic insufficiency in both lower legs and has been seeing Dr. Romario DPM for wound care. Patient saw her food safety officer, Dr. Partida, on Thursday and ultrasound of her legs was negative at that time. Today , patient states pain and swelling in left leg was worsening. She denies recent infections and trauma to her legs. She denies CP, SOB, fevers, abdominal pain, nausea, vomiting, chills, recent sickness, sick contacts at home, and recent travel. The patient apparently also had a DVT to left lower extremity in the past treated with surgical venous laserectomy. Very slight improvement to the superinfection of the left leg pain. Still complains of pain to the left lower leg. MRI and CT did not show discrete abscess formation. Taken to OR yesterday and two abscesses (lateral and medial lower leg) were found with communication between the abscesses posteriorly. Debridement performed. Patient feeling better now. Objective - Vital Signs/Intake and Output Vital Signs (last 24 hours): Temp Pulse Resp BP Pulse Ox 97.7 F 61 20 113/60 96 01/15/18 14:00 01/15/18 14:00 01/15/18 14:00 01/15/18 14:00 01/15/18 14:00 Intake and Output: 01/15/18 01/15/18 06:59 18:59 Intake Total 1900 Balance 1900 - Medications Medications: Current Medications Aspirin (Aspirin Chewable) 81 mg PO DAILY [facility] Last Admin: 01/15/18 11:12 Dose: 81 mg Diphenhydramine HCl (Benadryl) 25 mg PO HS PRN PRN Reason: Insomnia Last Admin: 01/13/18 00:02 Dose: 25 mg Docusate Sodium (Colace) 100 mg PO DAILY [facility] Last Admin: 01/15/18 11:11 Dose: 100 mg Ferrous Sulfate (Feosol) 324 mg PO TID [facility] Last Admin: 01/15/18 11:12 Dose: 324 mg Furosemide (Lasix) 40 mg PO DAILY [facility] Last Admin: 01/15/18 11:11 Dose: 40 mg Home Med (Home Med) 1 unit PO [facility] Last Admin: 01/14/18 22:28 Dose: Not Given Hydromorphone HCl (Dilaudid) 0.5 mg IVP Q4H PRN PRN Reason: Pain, severe (8-10) Last Admin: 01/15/18 09:03 Dose: 0.5 mg Vancomycin HCl (Vancomycin 1gm) 1 gm in 250 mls @ 167 mls/hr IVPB Q12H [facility] PRN Reason: Protocol Last Admin: 01/15/18 05:33 Dose: 167 mls/hr Cefepime HCl (Maxipime 1gm) 1 gm in 100 mls @ 100 mls/hr IVPB Q12 [facility] PRN Reason: Protocol Last Admin: 01/15/18 11:12 Dose: 100 mls/hr Dextrose/Sodium Chloride (Dextrose 5%/0.9% Ns 1000 Ml) 1,000 mls @ 115 mls/hr IV .Q8H42M [facility] Last Admin: 01/15/18 05:31 Dose: 115 mls/hr Ibuprofen (Motrin Tab) 400 mg PO Q6H PRN PRN Reason: Fever >100.4 F Last Admin: 01/13/18 20:58 Dose: 400 mg Lisinopril (Zestril) 20 mg PO DAILY [facility] Last Admin: 01/15/18 11:11 Dose: 20 mg Methimazole (Tapazole) 5 mg PO [facility] [place] Last Admin: 01/15/18 11:12 Dose: 5 mg Metoprolol Tartrate (Lopressor) 50 mg PO [facility] Last Admin: 01/14/18 21:37 Dose: 50 mg Morphine Sulfate (Morphine) 4 mg IVP Q4H PRN PRN Reason: Pain, moderate (4-7) Mupirocin (Bactroban Ointment) 0 gm TOP BID [facility] Last Admin: 01/15/18 11:13 Dose: Not Given Ondansetron HCl (Zofran Inj) 4 mg IVP Q6H PRN PRN Reason: Nausea/Vomiting Last Admin: 01/14/18 20:05 Dose: 4 mg - Labs Labs: 01/15/18 07:15 01/15/18 07:15 PT 17.5 SECONDS (9.4-12.5) H 01/14/18 06:30 INR 1.51 (0.93-1.08) H 01/14/18 06:30 APTT 23.5 Seconds (25.1-36.5) L 01/14/18 06:30 - Constitutional Appears: Non-toxic, No Acute Distress, Chronically Ill - Head Exam Head Exam: ATRAUMATIC, NORMOCEPHALIC - Eye Exam Eye Exam: EOMI, PERRL Pupil Exam: NORMAL ACCOMODATION, PERRL - ENT Exam ENT Exam: Mucous Membranes Moist, Normal External Ear Exam, TM's Normal Bilaterally - Neck Exam Neck Exam: Full ROM, Normal Inspection - Respiratory Exam Respiratory Exam: Clear to Ausculation Bilateral, NORMAL BREATHING PATTERN. absent: Rales, Rhonchi, Wheezes - Cardiovascular Exam Cardiovascular Exam: REGULAR RHYTHM, RRR, +S1, +S2 - GI/Abdominal Exam GI & Abdominal Exam: Soft, Normal Bowel Sounds. absent: Distended, Tenderness - Extremities Exam Extremities Exam: Full ROM, Joint Swelling, Pedal Edema Additional comments: lower left leg was tender, swollen, erythematous, and edematous with ulcerations present. pulse difficult to palpate in left leg due to swelling. pulse is +2 in right leg. Sensation is diminished in left leg compared to right. Taken to OR yesterday for I&D and debridement finding two abscesses in the lateral and medial lower left leg with posterior communications. - Neurological Exam Neurological Exam: Alert, Awake, CN II-XII Intact, Oriented x3 - Psychiatric Exam Psychiatric exam: Normal Affect, Normal Mood - Skin Additional comments: lower left leg is tender, swollen, erythematous, and edematous with ulcerations present. pulse difficult to palpate in left leg due to swelling. pulse is +2 in right leg. Sensation is diminished in left leg compared to right. S/P I&D and debridement of the left lower leg. Assessment and Plan - Assessment and Plan (Free Text) Assessment: 67 yo female with PVD of the lower extremities and history of HTN presenting with erythema, edema, pain, and tenderness to the left leg with open ulcerations and swelling of the same leg. Given one dose of Vancomycin IV. Supportive care. Will continue with Vancomycin and Cefepime IV at this time. No history of renal insufficiency. Right ankle tendon repair in April 2017. Outward signs of peripheral vascular disease. Monitor LFTs. Patient revealed further information supporting long standing peripheral vascular disease. S/P I&D 01/14/2018. Leukocytosis improved to 11.7 today. Decreased pain to left lower leg. Surgery found abscesses in the left lower leg in lateral and medial aspects with posterior communication that were I&D and debrided on 2017. Patient states that she feels much better today. Thank you for allowing me to participate in the care of the patient, we will follow with you.
--- NOTE | 2018-01-15 17:10 | PN ---
DATE: 01/15/2018 PULMONARY PROGRESS NOTE REFERRING PHYSICIAN: Prema Strong MD. SUBJECTIVE: She is lying in the bed, head at 45 degrees. Family is at bedside. Night was unremarkable. No headache. No rhinitis. No nausea. No vomiting. No diarrhea. 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 OBJECTIVE: GENERAL: In not acute distress. VITAL SIGNS: Temperature is 98, heart rate is 61, respiratory rate is 20, blood pressure 113/60, pulse ox 96% on room air. HEENT: Moist mucous membrane. Crowded airway. Mallampati score is 4. NECK: Supple. No JVD. LUNGS: Have a fair airflow with rhonchi. HEART: S1 and S2. ABDOMEN: Soft, nontender. No organomegaly. EXTREMITIES: There is no edema of the right leg. Left leg is with Anibal wraps, tender to touch, swollen. NEUROLOGICAL: Awake and alert. Follows simple command. MEDICATIONS: She is on aspirin 81 mg daily, Benadryl 25 mg at bedtime p.r.n., Colace 100 mg daily, IV fluid D5 normal saline 150 mL/hour, Dilaudid 0.5 mg every 4 hours p.r.n., ferrous sulfate 325 mg three times a day, Lasix is 40 mg daily, metoprolol tartrate 50 mg at bedtime, cefepime 1 g IV every 12 hours, morphine 4 mg every 4 hours p.r.n., Motrin p.r.n. basis, Tapazole 5 mg Thursday, Thursday and Thursday, vancomycin 1 g IV every 12 hours, Zestril 20 mg daily, Zofran p.r.n. basis. LABORATORY DATA: Shows hemoglobin 9.6, hematocrit 28.7, WBC 12.5, platelet count is 283. Sodium 139, potassium 4.1, chloride 103, bicarbonate 29, BUN 12, creatinine 0.6, glucose 114, calcium is 7.8. Microbiology: Wound has gram-negative rods. IMPRESSION AND PLAN: Recurrent cellulitis and nonhealing ulcer with abscess from the left lower extremity requiring extensive debridement, on antibiotics, hypertension, hypothyroid, obesity, may have sleep apnea syndrome pulmonary hypertension. Pulmonary point of view, doing okay. Keep head at 45 degrees. Bronchodilator, antibiotics, gastric prophylaxis, deep venous thrombosis prophylaxis. Elevate the left lower extremity. Thank you and we will follow with you. Radha Tellez MD
[2018-01-15] MEDS: PRAVASTATIN 40MG PO SCH (22:08)
--- NOTE | 2018-01-15 23:38 | CP.PCM.PN ---
Subjective - Date & Time of Evaluation Date of Evaluation: 01/15/18 Time of Evaluation: 07:00 - Subjective Subjective: Events reviewed. POD #1 I&D Objective - Vital Signs/Intake and Output Vital Signs (last 24 hours): Temp Pulse Resp BP Pulse Ox 98.7 F 66 20 116/59 L 98 01/15/18 22:53 01/15/18 22:53 01/15/18 22:53 01/15/18 22:53 01/15/18 22:53 Intake and Output: 01/15/18 01/16/18 18:59 06:59 Intake Total 480 Balance 480 - Medications Medications: Current Medications Aspirin (Aspirin Chewable) 81 mg PO DAILY [facility] Last Admin: 01/15/18 11:12 Dose: 81 mg Diphenhydramine HCl (Benadryl) 25 mg PO HS PRN PRN Reason: Insomnia Last Admin: 01/13/18 00:02 Dose: 25 mg Docusate Sodium (Colace) 100 mg PO DAILY [facility] Last Admin: 01/15/18 11:11 Dose: 100 mg Ferrous Sulfate (Feosol) 324 mg PO TID [facility] Last Admin: 01/15/18 17:04 Dose: 324 mg Furosemide (Lasix) 40 mg PO DAILY [facility] Last Admin: 01/15/18 11:11 Dose: 40 mg Home Med (Home Med) 1 unit PO HS [facility] Last Admin: 01/15/18 22:08 Dose: Not Given Hydromorphone HCl (Dilaudid) 0.5 mg IVP Q4H PRN PRN Reason: Pain, severe (8-10) Last Admin: 01/15/18 18:27 Dose: 0.5 mg Vancomycin HCl (Vancomycin 1gm) 1 gm in 250 mls @ 167 mls/hr IVPB Q12H [facility] PRN Reason: Protocol Last Admin: 01/15/18 17:04 Dose: 167 mls/hr Cefepime HCl (Maxipime 1gm) 1 gm in 100 mls @ 100 mls/hr IVPB Q12 [facility] PRN Reason: Protocol Last Admin: 01/15/18 22:07 Dose: 100 mls/hr Dextrose/Sodium Chloride (Dextrose 5%/0.9% Ns 1000 Ml) 1,000 mls @ 115 mls/hr IV .Q8H42M [facility] Last Admin: 01/15/18 05:31 Dose: 115 mls/hr Ibuprofen (Motrin Tab) 400 mg PO Q6H PRN PRN Reason: Fever >100.4 F Last Admin: 01/13/18 20:58 Dose: 400 mg Lisinopril (Zestril) 20 mg PO DAILY [facility] Last Admin: 01/15/18 11:11 Dose: 20 mg Methimazole (Tapazole) 5 mg PO MWF [facility] Last Admin: 01/15/18 11:12 Dose: 5 mg Metoprolol Tartrate (Lopressor) 50 mg PO HS [facility] Last Admin: 01/15/18 22:07 Dose: 50 mg Morphine Sulfate (Morphine) 4 mg IVP Q4H PRN PRN Reason: Pain, moderate (4-7) Mupirocin (Bactroban Ointment) 0 gm TOP BID [facility] Last Admin: 01/15/18 11:13 Dose: Not Given Ondansetron HCl (Zofran Inj) 4 mg IVP Q6H PRN PRN Reason: Nausea/Vomiting Last Admin: 01/14/18 20:05 Dose: 4 mg - Labs Labs: 01/15/18 07:15 01/15/18 07:15 PT 17.5 SECONDS (9.4-12.5) H 01/14/18 06:30 INR 1.51 (0.93-1.08) H 01/14/18 06:30 APTT 23.5 Seconds (25.1-36.5) L 01/14/18 06:30 - Constitutional Appears: Well, Non-toxic - Respiratory Exam Respiratory Exam: Clear to Ausculation Bilateral, NORMAL BREATHING PATTERN - Cardiovascular Exam Cardiovascular Exam: REGULAR RHYTHM, RRR, +S1, +S2. absent: JVD - GI/Abdominal Exam GI & Abdominal Exam: Normal Bowel Sounds. absent: Organomegaly Assessment and Plan - Assessment and Plan (Free Text) Assessment: 67 year old female with Severe sepsis in the setting of acute cellulitis and multiple abcesses on broad spectrum IV abx, ID consult appreciated, s/p surgical debridement. POD #1 HTN is chronic and stable on metoprolol, lisinopril and lasix Venous insufficiency chronic and now exacerbated, snf she has bilaterally insufficiency in the greater saphenous veins which will benefit from closure. I discussed this with patient in son that we will address this after acute infection has subsided.
[2018-01-16] MEDS: HYDROmorphone 0.5 mg/0.5 ml ISec IVP PRN (00:38)
[2018-01-16] MEDS: Vancomycin 1gm in NS 250ml 1 GM/250 ML BAG IVPB SCH ×2 (05:27→17:23)
[2018-01-16 07:53] LABS: BASO # 0.03 K/mm3 (0.0-2.0); BASO % 0.3 % (0.0-3.0); EOS # 0.4 (0.0-0.7); EOS % 3.3 % (1.5-5.0); GRAN # 7.79 (1.4-6.5); GRAN % 71.9 % (50.0-68.0); HEMOGLOBIN 9.4 g/dL (12.0-16.0); LYMPH # 1.8 (1.2-3.4); LYMPH % 16.2 % (22.0-35.0); MEAN CELL VOLUME 78.1 fl (80.0-105.0); MEAN CORPUSCULAR HEMOGLOBIN 25.8 pg (25.0-35.0); MEAN PLATELET VOLUME 10.6 fl (7.0-11.0); MONO # 0.9 (0.1-0.6); MONO % 8.3 % (1.0-6.0); RBC 3.65 10^6/uL (3.5-6.1); RED CELL DISTRIBUTION WIDTH 15.1 % (11.5-14.5); WHITE BLOOD COUNT 10.8 10^3/ul (4.5-11.0)
[2018-01-16 08:05] LABS: CALCIUM 7.7 mg/dL (8.4-10.5); GFR AFRICAN-AMERICAN > 60; GFR NON-AFRICAN AMERICAN > 60
[2018-01-16 08:07] LABS: BLOOD UREA NITROGEN 12 mg/dL (7-21)
[2018-01-16 08:28] LABS: INR 1.48 (0.93-1.08); PARTIAL THROMBOPLASTIN TIME 21.6 Seconds (25.1-36.5); PROTHROMBIN TIME 17.1 SECONDS (9.4-12.5)
[2018-01-16] MEDS ORDERED: Morphine 4 mg/ml ISec IVP PRN (08:51)
[2018-01-16] MEDS: Cefepime 1gm in NS 100ml 1 GM/100 ML BAG IVPB SCH ×2 (10:40→22:13)
--- NOTE | 2018-01-16 10:44 | CP.PCM.PN ---
Subjective - Date & Time of Evaluation Date of Evaluation: 01/16/18 Time of Evaluation: 09:40 - Subjective Subjective: NAD, denies chest pain, no SOB Objective - Vital Signs/Intake and Output Vital Signs (last 24 hours): Temp Pulse Resp BP Pulse Ox 99 F 64 20 131/72 96 01/16/18 08:27 01/16/18 08:27 01/16/18 08:27 01/16/18 08:27 01/16/18 08:27 Intake and Output: 01/16/18 01/16/18 06:59 18:59 Intake Total 830 Balance 830 - Medications Medications: Current Medications Aspirin (Aspirin Chewable) 81 mg PO DAILY [facility] Last Admin: 01/15/18 11:12 Dose: 81 mg Diphenhydramine HCl (Benadryl) 25 mg PO HS PRN PRN Reason: Insomnia Last Admin: 01/13/18 00:02 Dose: 25 mg Docusate Sodium (Colace) 100 mg PO DAILY [facility] Last Admin: 01/15/18 11:11 Dose: 100 mg Ferrous Sulfate (Feosol) 324 mg PO TID [facility] Last Admin: 01/15/18 17:04 Dose: 324 mg Furosemide (Lasix) 40 mg PO DAILY [facility] Last Admin: 01/15/18 11:11 Dose: 40 mg Home Med (Home Med) 1 unit PO HS [facility] Last Admin: 01/15/18 22:08 Dose: Not Given Vancomycin HCl (Vancomycin 1gm) 1 gm in 250 mls @ 167 mls/hr IVPB Q12H [facility] PRN Reason: Protocol Last Admin: 01/16/18 05:27 Dose: 167 mls/hr Cefepime HCl (Maxipime 1gm) 1 gm in 100 mls @ 100 mls/hr IVPB Q12 [facility] PRN Reason: Protocol Last Admin: 01/15/18 22:07 Dose: 100 mls/hr Dextrose/Sodium Chloride (Dextrose 5%/0.9% Ns 1000 Ml) 1,000 mls @ 115 mls/hr IV .Q8H42M [facility] Last Admin: 01/15/18 05:31 Dose: 115 mls/hr Ibuprofen (Motrin Tab) 400 mg PO Q6H PRN PRN Reason: Fever >100.4 F Last Admin: 01/13/18 20:58 Dose: 400 mg Lisinopril (Zestril) 20 mg PO DAILY [facility] Last Admin: 01/15/18 11:11 Dose: 20 mg Methimazole (Tapazole) 5 mg PO MWF [facility] Last Admin: 01/15/18 11:12 Dose: 5 mg Metoprolol Tartrate (Lopressor) 50 mg PO HS [facility] Last Admin: 01/15/18 22:07 Dose: 50 mg Morphine Sulfate (Morphine) 4 mg IVP Q4H PRN PRN Reason: Pain, severe (8-10) Mupirocin (Bactroban Ointment) 0 gm TOP BID [facility] Last Admin: 01/15/18 11:13 Dose: Not Given Ondansetron HCl (Zofran Inj) 4 mg IVP Q6H PRN PRN Reason: Nausea/Vomiting Last Admin: 01/14/18 20:05 Dose: 4 mg Tramadol HCl (Ultram) 50 mg PO Q4H PRN PRN Reason: Pain, moderate (4-7) - Labs Labs: 01/16/18 07:00 01/16/18 07:00 PT 17.1 SECONDS (9.4-12.5) H 01/16/18 07:00 INR 1.48 (0.93-1.08) H 01/16/18 07:00 APTT 21.6 Seconds (25.1-36.5) L 01/16/18 07:00 - Respiratory Exam Respiratory Exam: Clear to Ausculation Bilateral, NORMAL BREATHING PATTERN - GI/Abdominal Exam GI & Abdominal Exam: Soft, Normal Bowel Sounds - Extremities Exam Additional comments: leg wound dressings clean and intact - Neurological Exam Neurological Exam: Alert, Awake Assessment and Plan (1) Cellulitis Status: Acute (2) Stasis dermatitis with venous ulcer of lower extremity due to chronic peripheral venous hypertension Status: Chronic - Assessment and Plan (Free Text) Plan: continue wound care, IV Abx
[2018-01-16] MEDS: Mupirocin 2% Ointment 15 GM TUBE TOP SCH ×2 (10:47→17:45)
[2018-01-16] MEDS: Dextrose 5%/0.9% NS 1,000 ML IV SCH (11:39)
--- NOTE | 2018-01-16 12:58 | CP.PCM.PN ---
Subjective - Date & Time of Evaluation Date of Evaluation: 01/16/18 Time of Evaluation: 12:00 - Subjective Subjective: Infectious Disease Follow Up: January 16, 2018 67 year old female with PMH of hypertension and chronic venous insufficiency presenting to the ER for 6 day history of worsening left leg pain and swelling. Patient has history of chronic insufficiency in both lower legs and has been seeing Dr. Romario DPM for wound care. Patient saw her social services aide, Dr. Partiad, on Thursday and ultrasound of her legs was negative at that time. Today , patient states pain and swelling in left leg was worsening. She denies recent infections and trauma to her legs. She denies CP, SOB, fevers, abdominal pain, nausea, vomiting, chills, recent sickness, sick contacts at home, and recent travel. The patient apparently also had a DVT to left lower extremity in the past treated with surgical venous laserectomy. Very slight improvement to the superinfection of the left leg pain. Still complains of pain to the left lower leg. MRI and CT did not show discrete abscess formation. Taken to OR yesterday and two abscesses (lateral and medial lower leg) were found with communication between the abscesses posteriorly. Debridement performed. Patient feeling better now but still complaining of left leg pain. Objective - Vital Signs/Intake and Output Vital Signs (last 24 hours): Temp Pulse Resp BP Pulse Ox 99 F 64 20 131/72 96 01/16/18 08:27 01/16/18 10:45 01/16/18 08:27 01/16/18 10:45 01/16/18 08:27 Intake and Output: 01/16/18 01/16/18 06:59 18:59 Intake Total 830 Balance 830 - Medications Medications: Current Medications Aspirin (Aspirin Chewable) 81 mg PO DAILY [facility] Last Admin: 01/15/18 11:12 Dose: 81 mg Diphenhydramine HCl (Benadryl) 25 mg PO HS PRN PRN Reason: Insomnia Last Admin: 01/13/18 00:02 Dose: 25 mg Docusate Sodium (Colace) 100 mg PO DAILY [facility] Last Admin: 01/16/18 10:46 Dose: 100 mg Ferrous Sulfate (Feosol) 324 mg PO TID [facility] Last Admin: 01/16/18 10:46 Dose: 324 mg Furosemide (Lasix) 40 mg PO DAILY [facility] Last Admin: 01/16/18 10:45 Dose: 40 mg Home Med (Home Med) 1 unit PO [facility] Last Admin: 01/15/18 22:08 Dose: Not Given Vancomycin HCl (Vancomycin 1gm) 1 gm in 250 mls @ 167 mls/hr IVPB Q12H [facility] PRN Reason: Protocol Last Admin: 01/16/18 05:27 Dose: 167 mls/hr Cefepime HCl (Maxipime 1gm) 1 gm in 100 mls @ 100 mls/hr IVPB Q12 [facility] PRN Reason: Protocol Last Admin: 01/16/18 10:40 Dose: 100 mls/hr Dextrose/Sodium Chloride (Dextrose 5%/0.9% Ns 1000 Ml) 1,000 mls @ 115 mls/hr IV .Q8H42M [facility] Last Admin: 01/16/18 11:39 Dose: 115 mls/hr Ibuprofen (Motrin Tab) 400 mg PO Q6H PRN PRN Reason: Fever >100.4 F Last Admin: 01/13/18 20:58 Dose: 400 mg Lisinopril (Zestril) 20 mg PO DAILY [facility] Last Admin: 01/16/18 10:45 Dose: 20 mg Methimazole (Tapazole) 5 mg PO [facility] Last Admin: 01/15/18 11:12 Dose: 5 mg Metoprolol Tartrate (Lopressor) 50 mg PO [facility] Last Admin: 01/15/18 22:07 Dose: 50 mg Morphine Sulfate (Morphine) 4 mg IVP Q4H PRN PRN Reason: Pain, severe (8-10) Mupirocin (Bactroban Ointment) 0 gm TOP BID [facility] Last Admin: 01/16/18 10:47 Dose: Not Given Ondansetron HCl (Zofran Inj) 4 mg IVP Q6H PRN PRN Reason: Nausea/Vomiting Last Admin: 01/14/18 20:05 Dose: 4 mg Tramadol HCl (Ultram) 50 mg PO Q4H PRN PRN Reason: Pain, moderate (4-7) Last Admin: 01/16/18 10:44 Dose: 50 mg - Labs Labs: 01/16/18 07:00 01/16/18 07:00 PT 17.1 SECONDS (9.4-12.5) H 01/16/18 07:00 INR 1.48 (0.93-1.08) H 01/16/18 07:00 APTT 21.6 Seconds (25.1-36.5) L 01/16/18 07:00 - Constitutional Appears: Non-toxic, No Acute Distress, Chronically Ill - Head Exam Head Exam: ATRAUMATIC, NORMOCEPHALIC - Eye Exam Eye Exam: EOMI, PERRL Pupil Exam: NORMAL ACCOMODATION, PERRL - ENT Exam ENT Exam: Mucous Membranes Moist, Normal External Ear Exam, TM's Normal Bilaterally - Neck Exam Neck Exam: Full ROM, Normal Inspection - Respiratory Exam Respiratory Exam: Clear to Ausculation Bilateral, NORMAL BREATHING PATTERN. absent: Rales, Rhonchi, Wheezes - Cardiovascular Exam Cardiovascular Exam: REGULAR RHYTHM, RRR, +S1, +S2 - GI/Abdominal Exam GI & Abdominal Exam: Soft, Normal Bowel Sounds. absent: Tenderness - Extremities Exam Extremities Exam: Full ROM, Joint Swelling, Pedal Edema Additional comments: lower left leg was tender, swollen, erythematous, and edematous with ulcerations present. pulse difficult to palpate in left leg due to swelling. pulse is +2 in right leg. Sensation is diminished in left leg compared to right. Taken to OR for I&D and debridement finding two abscesses in the lateral and medial lower left leg with posterior communications. - Neurological Exam Neurological Exam: Alert, Awake, CN II-XII Intact, Oriented x3 - Psychiatric Exam Psychiatric exam: Normal Affect, Normal Mood - Skin Additional comments: lower left leg is tender, swollen, erythematous, and edematous with ulcerations present. pulse difficult to palpate in left leg due to swelling. pulse is +2 in right leg. Sensation is diminished in left leg compared to right. S/P I&D and debridement of the left lower leg. Assessment and Plan - Assessment and Plan (Free Text) Assessment: 67 yo female with PVD of the lower extremities and history of HTN presenting with erythema, edema, pain, and tenderness to the left leg with open ulcerations and swelling of the same leg. Given one dose of Vancomycin IV. Supportive care. Will continue with Vancomycin and Cefepime IV at this time. No history of renal insufficiency. Right ankle tendon repair in April 2017. Outward signs of peripheral vascular disease. Monitor LFTs. Patient revealed further information supporting long standing peripheral vascular disease. S/P I&D 01/14/2018. Leukocytosis improved to 10.8 today. Decreased pain to left lower leg. Surgery found abscesses in the left lower leg in lateral and medial aspects with posterior communication that were I&D and debrided on 2017. Patient states that she feels much better today but still has pain in the left lower leg. Thank you for allowing me to participate in the care of the patient, we will follow with you.
[2018-01-16] MEDS: PRAVASTATIN 40MG PO SCH (22:05)
--- NOTE | 2018-01-16 22:22 | PN ---
DATE: 01/16/2018 PULMONARY PROGRESS NOTE REFERRING PHYSICIAN: Prema Strong MD SUBJECTIVE: She is lying in the bed, head at 45 degrees. Night was unremarkable. Family is at bedside. Has Anibal wraps on the left lower extremity. Swelling and pain has been better. No nausea. No vomiting. No diarrhea. No cough. No sputum production. PHYSICAL EXAMINATION: GENERAL: In no acute distress. VITAL SIGNS: Temperature is 98, heart rate is 64, respiratory rate is 20, blood pressure 149/66, pulse ox 96% on room air. HEENT: Moist mucous membranes. Crowded airway. NECK: Supple. No JVD. LUNGS: Have a fair airflow with rhonchi. HEART: S1 and S2. ABDOMEN: Soft and nontender. No organomegaly. EXTREMITIES: There is no edema. Left lower extremity has Anibal wraps. NEUROLOGIC: Awake and alert. Follows simple commands. MEDICATIONS: She is on aspirin 81 mg daily, Benadryl 25 mg at bedtime p.r.n., Colace 100 mg daily, IV fluids D5 normal saline at 115 mL per hour, Lasix 40 mg daily, metoprolol tartrate 50 mg at bedtime, cefepime 1 g IV every 12 hours, morphine 4 mg every 4 hours p.r.n., Motrin 4 mg every 6 hours p.r.n.; methimazole 5 mg Thursday, Thursday and Thursday; Ultram 50 mg every 4 hours p.r.n., vancomycin 1 g IV every 12 hours, Zestril 20 mg daily, Zofran p.r.n. basis. LABORATORY DATA: Shows hemoglobin 9.4, hematocrit 28.5, WBC 10.8, platelet count is 293. INR 1.48, PTT 22. Sodium 136, potassium 4.1, chloride 101, bicarbonate 28, BUN 12, creatinine 0.5, glucose is 92, calcium is 7.7, phosphorus 2.8, magnesium 2. Wound has Gram-negative rods, which is E. coli. IMPRESSION AND PLAN: Recurrent cellulitis and nonhealing ulcer on the left lower extremity with abscess requiring incision and drainage, hypertension, hypothyroid, obesity, may have sleep apnea syndrome, Gram-negative maria de jesus in the wound, also probably has pulmonary hypertension. Patient is being followed by surgical team as well as by Infectious Disease. Continue pain management, antibiotics, gastric prophylaxis, deep venous thrombosis prophylaxis, keep head at 45 degrees. We will order echo to assure if there is any pulmonary hypertension. I spoke to family at bedside. Thank you and we will follow with you. Radha Tellez MD
[2018-01-17] MEDS: Vancomycin 1gm in NS 250ml 1 GM/250 ML BAG IVPB SCH ×2 (05:16→17:24)
[2018-01-17 07:37] LABS: BASO # 0.03 K/mm3 (0.0-2.0); BASO % 0.3 % (0.0-3.0); EOS # 0.4 (0.0-0.7); EOS % 3.4 % (1.5-5.0); GRAN # 7.37 (1.4-6.5); GRAN % 70.6 % (50.0-68.0); HEMOGLOBIN 9.8 g/dL (12.0-16.0); LYMPH # 1.8 (1.2-3.4); LYMPH % 17.2 % (22.0-35.0); MEAN CELL VOLUME 78.6 fl (80.0-105.0); MEAN CORPUSCULAR HEMOGLOBIN 25.6 pg (25.0-35.0); MEAN CORPUSCULAR HGB CONC 32.6 g/dl (31.0-37.0); MEAN PLATELET VOLUME 10.2 fl (7.0-11.0); MONO # 0.9 (0.1-0.6); MONO % 8.5 % (1.0-6.0); RBC 3.83 10^6/uL (3.5-6.1); RED CELL DISTRIBUTION WIDTH 15.1 % (11.5-14.5); WHITE BLOOD COUNT 10.4 10^3/ul (4.5-11.0)
[2018-01-17 08:15] LABS: BLOOD UREA NITROGEN 11 mg/dL (7-21); CALCIUM 8.2 mg/dL (8.4-10.5); GFR AFRICAN-AMERICAN > 60; GFR NON-AFRICAN AMERICAN > 60
--- NOTE | 2018-01-17 09:23 | CT ---
PROCEDURE: CT scan right lower extremity without contrast, tibia fibula INDICATION: TECHNIQUE: Multiple axial images were obtained with slice thickness of 2.5 mm. Coronal and sagittal reformatted images were obtained. Iterative reconstruction was used. Radiation dose: Total exam DLP = 261.96 mGy-cm. This CT exam was performed using one or more of the following dose reduction techniques: Automated exposure control, adjustment of the mA and/or kV according to patient size, and/or use of iterative reconstruction technique. COMPARISON: None. FINDINGS: There is no acute displaced fracture or bone destruction. Bone alignment is normal. There is diffuse bone demineralization. There are postsurgical changes in the periarticular soft tissues with bilateral drains, diffuse skin thickening and subcutaneous edema. There is also small amount of subcutaneous fluid. No drainable fluid collection. No drainable fluid collection. Small foci of air in the deep subcutaneous soft tissues are related to recent surgery. IMPRESSION: Postsurgical changes in the left with surgical drains in place. Findings are most compatible with cellulitis. No CT evidence for acute osteomyelitis. No acute fracture or dislocation. A preliminary report was provided by [employer].
[2018-01-17] MEDS: Cefepime 1gm in NS 100ml 1 GM/100 ML BAG IVPB SCH ×2 (09:51→21:56)
--- NOTE | 2018-01-17 09:59 | CP.PCM.PN ---
Subjective - Date & Time of Evaluation Date of Evaluation: 01/17/18 Time of Evaluation: 09:20 - Subjective Subjective: NAD, resting comfortably Objective - Vital Signs/Intake and Output Vital Signs (last 24 hours): Temp Pulse Resp BP Pulse Ox 99.3 F 62 18 118/62 95 01/17/18 06:00 01/17/18 06:00 01/17/18 06:00 01/17/18 09:50 01/17/18 06:00 Intake and Output: 01/17/18 01/17/18 06:59 18:59 Intake Total 1020 Balance 1020 - Medications Medications: Current Medications Aspirin (Aspirin Chewable) 81 mg PO DAILY [facility] Last Admin: 01/17/18 09:51 Dose: 81 mg Diphenhydramine HCl (Benadryl) 25 mg PO HS PRN PRN Reason: Insomnia Last Admin: 01/13/18 00:02 Dose: 25 mg Docusate Sodium (Colace) 100 mg PO DAILY [facility] Last Admin: 01/17/18 09:51 Dose: 100 mg Ferrous Sulfate (Feosol) 324 mg PO TID [facility] Last Admin: 01/17/18 09:50 Dose: 324 mg Furosemide (Lasix) 40 mg PO DAILY [facility] Last Admin: 01/17/18 09:50 Dose: 40 mg Home Med (Home Med) 1 unit PO HS [facility] Last Admin: 01/16/18 22:05 Dose: Not Given Vancomycin HCl (Vancomycin 1gm) 1 gm in 250 mls @ 167 mls/hr IVPB Q12H [facility] PRN Reason: Protocol Last Admin: 01/17/18 05:16 Dose: 167 mls/hr Cefepime HCl (Maxipime 1gm) 1 gm in 100 mls @ 100 mls/hr IVPB Q12 [facility] PRN Reason: Protocol Last Admin: 01/17/18 09:51 Dose: 100 mls/hr Ibuprofen (Motrin Tab) 400 mg PO Q6H PRN PRN Reason: Fever >100.4 F Last Admin: 01/13/18 20:58 Dose: 400 mg Lisinopril (Zestril) 20 mg PO DAILY [facility] Last Admin: 01/17/18 09:50 Dose: 20 mg [facility]imazole (Tap[facility]) [address] [facility] Last Admin: 01/15/18 11:12 Dose: 5 mg Metoprolol Tartrate (Lopressor) 50 mg PO HS [facility] Last Admin: 01/16/18 22:12 Dose: Not Given Morphine Sulfate (Morphine) 4 mg IVP Q4H PRN PRN Reason: Pain, severe (8-10) Mupirocin (Bactroban Ointment) 0 gm TOP BID [facility] Last Admin: 01/16/18 17:45 Dose: 1 applic Ondansetron HCl (Zofran Inj) 4 mg IVP Q6H PRN PRN Reason: Nausea/Vomiting Last Admin: 01/14/18 20:05 Dose: 4 mg Tramadol HCl (Ultram) 50 mg PO Q4H PRN PRN Reason: Pain, moderate (4-7) Last Admin: 01/16/18 22:13 Dose: 50 mg - Labs Labs: 01/17/18 07:00 01/17/18 07:00 PT 17.1 SECONDS (9.4-12.5) H 01/16/18 07:00 INR 1.48 (0.93-1.08) H 01/16/18 07:00 APTT 21.6 Seconds (25.1-36.5) L 01/16/18 07:00 - Respiratory Exam Respiratory Exam: Clear to Ausculation Bilateral, NORMAL BREATHING PATTERN - Cardiovascular Exam Cardiovascular Exam: REGULAR RHYTHM - GI/Abdominal Exam GI & Abdominal Exam: Normal Bowel Sounds - Neurological Exam Neurological Exam: Alert, Awake - Skin Skin Exam: Dry, Warm Assessment and Plan (1) Cellulitis Status: Acute (2) 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
--- NOTE | 2018-01-17 10:13 | CP.PCM.PN ---
Subjective - Date & Time of Evaluation Date of Evaluation: 01/17/18 Time of Evaluation: 07:15 - Subjective Subjective: General surgery progress note for Dr. Zhu patient was seen and examined this AM at beside. dressing was changed. Patient states that the pain in her leg is still present but improving. She states that the drainage from the wound last night seemed to be less. She is passing flatus and having normal BMs. she denies n/v/f/c/ increasing pain in her leg or any sensory or motor changes in the leg. Objective - Vital Signs/Intake and Output Vital Signs (last 24 hours): Temp Pulse Resp BP Pulse Ox 99.3 F 62 18 118/62 95 01/17/18 06:00 01/17/18 06:00 01/17/18 06:00 01/17/18 09:50 01/17/18 06:00 Intake and Output: 01/17/18 01/17/18 06:59 18:59 Intake Total 1020 Balance 1020 - Medications Medications: Current Medications Aspirin (Aspirin Chewable) 81 mg PO DAILY [facility] Last Admin: 01/17/18 09:51 Dose: 81 mg Diphenhydramine HCl (Benadryl) 25 mg PO HS PRN PRN Reason: Insomnia Last Admin: 01/13/18 00:02 Dose: 25 mg Docusate Sodium (Colace) 100 mg PO DAILY [facility] Last Admin: 01/17/18 09:51 Dose: 100 mg Ferrous Sulfate (Feosol) 324 mg PO TID [facility] Last Admin: 01/17/18 09:50 Dose: 324 mg Furosemide (Lasix) 40 mg PO DAILY [facility] Last Admin: 01/17/18 09:50 Dose: 40 mg Home Med (Home Med) 1 unit PO HS [facility] Last Admin: 01/16/18 22:05 Dose: Not Given Vancomycin HCl (Vancomycin 1gm) 1 gm in 250 mls @ 167 mls/hr IVPB Q12H [facility] PRN Reason: Protocol Last Admin: 01/17/18 05:16 Dose: 167 mls/hr Cefepime HCl (Maxipime 1gm) 1 gm in 100 mls @ 100 mls/hr IVPB Q12 [facility] PRN Reason: Protocol Last Admin: 01/17/18 09:51 Dose: 100 mls/hr Ibuprofen (Motrin Tab) 400 mg PO Q6H PRN PRN Reason: Fever >100.4 F Last Admin: 01/13/18 20:58 Dose: 400 mg Lisinopril (Zestril) 20 mg PO DAILY [facility] Last Admin: 01/17/18 09:50 Dose: 20 mg Methimazole (Tapazole) 5 mg PO MWF [facility] Last Admin: 01/15/18 11:12 Dose: 5 mg Metoprolol Tartrate (Lopressor) 50 mg PO HS [facility] Last Admin: 01/16/18 22:12 Dose: Not Given Morphine Sulfate (Morphine) 4 mg IVP Q4H PRN PRN Reason: Pain, severe (8-10) Mupirocin (Bactroban Ointment) 0 gm TOP BID [facility] Last Admin: 01/16/18 17:45 Dose: 1 applic Ondansetron HCl (Zofran Inj) 4 mg IVP Q6H PRN PRN Reason: Nausea/Vomiting Last Admin: 01/14/18 20:05 Dose: 4 mg Tramadol HCl (Ultram) 50 mg PO Q4H PRN PRN Reason: Pain, moderate (4-7) Last Admin: 01/16/18 22:13 Dose: 50 mg - Labs Labs: 01/17/18 07:00 01/17/18 07:00 PT 17.1 SECONDS (9.4-12.5) H 01/16/18 07:00 INR 1.48 (0.93-1.08) H 01/16/18 07:00 APTT 21.6 Seconds (25.1-36.5) L 01/16/18 07:00 - Constitutional Appears: Well, Non-toxic, No Acute Distress - Head Exam Head Exam: ATRAUMATIC, NORMOCEPHALIC - ENT Exam ENT Exam: Mucous Membranes Moist - Respiratory Exam Respiratory Exam: NORMAL BREATHING PATTERN - Cardiovascular Exam Cardiovascular Exam: +S1, +S2 - Extremities Exam Extremities Exam: Pedal Edema, Tenderness Additional comments: pedal pulses DP and PT present bilaterally, venous stasis skin changes noted, winsome drains remain in place, lower leg compartments are soft, wound appears stable, dressings changes at bedside serous drainage noted on kerlex - Neurological Exam Neurological Exam: Alert, Awake, Oriented x3 - Psychiatric Exam Psychiatric exam: Normal Affect, Normal Mood - Skin Additional comments: venous stasis changes noted in the lower legs bilaterally, winsome drains in place Assessment and Plan - Assessment and Plan (Free Text) Assessment: 67 yr old female s/p I&D 01/14 POD 3 with improving left lower leg infection secondary to venous stasis Plan: -continue to monitor leg closely, dressing was changed today -CBC w/diff - will encourage PT -PRN pain medication -DVT ppx -antibiotics per ID - will discuss plan with Dr. Zhu, all further recs per him Adele Keen, PGY 1
[2018-01-17] MEDS: Mupirocin 2% Ointment 15 GM TUBE TOP SCH ×2 (11:00→17:25)
--- NOTE | 2018-01-17 17:06 | CP.PCM.PN ---
Subjective - Date & Time of Evaluation Date of Evaluation: 01/17/18 Time of Evaluation: 15:00 - Subjective Subjective: Infectious Disease Follow Up: January 17, 2018 67 year old female with PMH of hypertension and chronic venous insufficiency presenting to the ER for 6 day history of worsening left leg pain and swelling. Patient has history of chronic insufficiency in both lower legs and has been seeing Dr. Romario DPM for wound care. Patient saw her supervisor picking crew, Dr. Partida, on Thursday and ultrasound of her legs was negative at that time. Today , patient states pain and swelling in left leg was worsening. She denies recent infections and trauma to her legs. She denies CP, SOB, fevers, abdominal pain, nausea, vomiting, chills, recent sickness, sick contacts at home, and recent travel. The patient apparently also had a DVT to left lower extremity in the past treated with surgical venous laserectomy. Very slight improvement to the superinfection of the left leg pain. Still complains of pain to the left lower leg. MRI and CT did not show discrete abscess formation. Taken to OR yesterday and two abscesses (lateral and medial lower leg) were found with communication between the abscesses posteriorly. Debridement performed. Patient feeling better now but still complaining of left leg pain. Mild drainage. On the whole the patient is feeling better. Objective - Vital Signs/Intake and Output Vital Signs (last 24 hours): Temp Pulse Resp BP Pulse Ox 99.7 F H 64 18 148/61 94 L 01/17/18 16:00 01/17/18 16:00 01/17/18 16:00 01/17/18 16:00 01/17/18 16:00 Intake and Output: 01/17/18 01/17/18 06:59 18:59 Intake Total 1020 600 Balance 1020 600 - Medications Medications: Current Medications Aspirin (Aspirin Chewable) 81 mg PO DAILY [facility] Last Admin: 01/17/18 09:51 Dose: 81 mg Diphenhydramine HCl (Benadryl) 25 mg PO HS PRN PRN Reason: Insomnia Last Admin: 01/13/18 00:02 Dose: 25 mg Docusate Sodium (Colace) 100 mg PO DAILY [facility] Last Admin: 01/17/18 09:51 Dose: 100 mg Enoxaparin Sodium (Lovenox) 40 mg SC DAILY [facility] PRN Reason: Protocol Ferrous Sulfate (Feosol) 324 mg PO TID [facility] Last Admin: 01/17/18 15:00 Dose: 324 mg Furosemide (Lasix) 40 mg PO DAILY [facility] Last Admin: 01/17/18 09:50 Dose: 40 mg Home Med (Home Med) 1 unit PO [facility] Last Admin: 01/16/18 22:05 Dose: Not Given Vancomycin HCl (Vancomycin 1gm) 1 gm in 250 mls @ 167 mls/hr IVPB Q12H [facility] PRN Reason: Protocol Last Admin: 01/17/18 05:16 Dose: 167 mls/hr Cefepime HCl (Maxipime 1gm) 1 gm in 100 mls @ 100 mls/hr IVPB Q12 [facility] PRN Reason: Protocol Last Admin: 01/17/18 09:51 Dose: 100 mls/hr Ibuprofen (Motrin Tab) 400 mg PO Q6H PRN PRN Reason: Fever >100.4 F Last Admin: 01/13/18 20:58 Dose: 400 mg Lisinopril (Zestril) 20 mg PO DAILY [facility] Last Admin: 01/17/18 09:50 Dose: 20 mg Methimazole (Tapazole) 5 mg PO [facility] Last Admin: 01/15/18 11:12 Dose: 5 mg Metoprolol Tartrate (Lopressor) 50 mg PO [facility] Last Admin: 01/16/18 22:12 Dose: Not Given Morphine Sulfate (Morphine) 4 mg IVP Q4H PRN PRN Reason: Pain, severe (8-10) Mupirocin (Bactroban Ointment) 0 gm TOP BID [facility] Last Admin: 01/17/18 11:00 Dose: 1 applic Ondansetron HCl (Zofran Inj) 4 mg IVP Q6H PRN PRN Reason: Nausea/Vomiting Last Admin: 01/14/18 20:05 Dose: 4 mg Tramadol HCl (Ultram) 50 mg PO Q4H PRN PRN Reason: Pain, moderate (4-7) Last Admin: 01/16/18 22:13 Dose: 50 mg - Labs Labs: 01/17/18 07:00 01/17/18 07:00 PT 17.1 SECONDS (9.4-12.5) H 01/16/18 07:00 INR 1.48 (0.93-1.08) H 01/16/18 07:00 APTT 21.6 Seconds (25.1-36.5) L 01/16/18 07:00 - Constitutional Appears: Non-toxic, No Acute Distress, Chronically Ill - Head Exam Head Exam: ATRAUMATIC, NORMOCEPHALIC - Eye Exam Eye Exam: EOMI, PERRL Pupil Exam: NORMAL ACCOMODATION, PERRL - ENT Exam ENT Exam: Mucous Membranes Moist, Normal External Ear Exam, TM's Normal Bilaterally - Respiratory Exam Respiratory Exam: Clear to Ausculation Bilateral, NORMAL BREATHING PATTERN. absent: Rales, Rhonchi, Wheezes - Cardiovascular Exam Cardiovascular Exam: REGULAR RHYTHM, RRR, +S1, +S2 - GI/Abdominal Exam GI & Abdominal Exam: Soft, Normal Bowel Sounds. absent: Distended, Tenderness - Extremities Exam Extremities Exam: Full ROM, Joint Swelling, Pedal Edema Additional comments: lower left leg was tender, swollen, erythematous, and edematous with ulcerations present. pulse difficult to palpate in left leg due to swelling. pulse is +2 in right leg. Sensation is diminished in left leg compared to right. Taken to OR for I&D and debridement finding two abscesses in the lateral and medial lower left leg with posterior communications. - Neurological Exam Neurological Exam: Alert, Awake, CN II-XII Intact, Oriented x3 - Psychiatric Exam Psychiatric exam: Normal Affect, Normal Mood - Skin Additional comments: lower left leg is tender, swollen, erythematous, and edematous with ulcerations present. pulse difficult to palpate in left leg due to swelling. pulse is +2 in right leg. Sensation is diminished in left leg compared to right. S/P I&D and debridement of the left lower leg. Assessment and Plan - Assessment and Plan (Free Text) Assessment: 67 yo female with PVD of the lower extremities and history of HTN presenting with erythema, edema, pain, and tenderness to the left leg with open ulcerations and swelling of the same leg. Given one dose of Vancomycin IV. Supportive care. Will continue with Vancomycin and Cefepime IV at this time. No history of renal insufficiency. Right ankle tendon repair in April 2017. Outward signs of peripheral vascular disease. Monitor LFTs. Patient revealed further information supporting long standing peripheral vascular disease. S/P I&D 01/14/2018. Leukocytosis improved to 10.8 today. Decreased pain to left lower leg. Surgery found abscesses in the left lower leg in lateral and medial aspects with posterior communication that were I&D and debrided on 2017. Patient states that she feels much better but still has pain in the left lower leg. Mild drainage from sites. Thank you for allowing me to participate in the care of the patient, we will follow with you.
[2018-01-17] MEDS: PRAVASTATIN 40MG PO SCH (22:57)
[2018-01-18] MEDS: Vancomycin 1gm in NS 250ml 1 GM/250 ML BAG IVPB SCH ×2 (05:47→17:02)
[2018-01-18 07:04] LABS: INR 1.56 (0.93-1.08); PROTHROMBIN TIME 18.1 SECONDS (9.4-12.5)
--- NOTE | 2018-01-18 08:28 | CP.PCM.PN ---
Subjective - Date & Time of Evaluation Date of Evaluation: 01/18/18 Time of Evaluation: 06:00 - Subjective Subjective: Patient seen and examined bedside in AM. No acute issues overnight. Patient states pain in leg has improved since yesterday, denies any discharge. Denies chest pain, SOB, fever, chills, numbness or tingling in leg. Objective - Vital Signs/Intake and Output Vital Signs (last 24 hours): Temp Pulse Resp BP Pulse Ox 99 F 55 L 18 111/50 L 95 01/18/18 06:00 01/18/18 06:00 01/18/18 06:00 01/18/18 06:00 01/18/18 06:00 Intake and Output: 01/18/18 01/18/18 06:59 18:59 Intake Total 560 Balance 560 - Medications Medications: Current Medications Aspirin (Aspirin Chewable) 81 mg PO DAILY [facility] Last Admin: 01/17/18 09:51 Dose: 81 mg Diphenhydramine HCl (Benadryl) 25 mg PO HS PRN PRN Reason: Insomnia Last Admin: 01/17/18 23:54 Dose: 25 mg Docusate Sodium (Colace) 100 mg PO DAILY [facility] Last Admin: 01/17/18 09:51 Dose: 100 mg Enoxaparin Sodium (Lovenox) 40 mg SC DAILY [facility] PRN Reason: Protocol Ferrous Sulfate (Feosol) 324 mg PO TID [facility] Last Admin: 01/17/18 17:25 Dose: 324 mg Furosemide (Lasix) 40 mg PO DAILY [facility] Last Admin: 01/17/18 09:50 Dose: 40 mg Home Med (Home Med) 1 unit PO HS [facility] Last Admin: 01/17/18 22:57 Dose: Not Given Vancomycin HCl (Vancomycin 1gm) 1 gm in 250 mls @ 167 mls/hr IVPB Q12H [facility] PRN Reason: Protocol Last Admin: 01/18/18 05:47 Dose: 167 mls/hr Cefepime HCl (Maxipime 1gm) 1 gm in 100 mls @ 100 mls/hr IVPB Q12 [facility] PRN Reason: Protocol Last Admin: 01/17/18 21:56 Dose: 100 mls/hr Ibuprofen (Motrin Tab) 400 mg PO Q6H PRN PRN Reason: Fever >100.4 F Last Admin: 01/13/18 20:58 Dose: 400 mg Lisinopril (Zestril) 20 mg PO DAILY [facility] Last Admin: 01/17/18 09:50 Dose: 20 mg Methimazole (Tapazole) 5 mg PO MWF [facility] Last Admin: 01/15/18 11:12 Dose: 5 mg Metoprolol Tartrate (Lopressor) 50 mg PO HS [facility] Last Admin: 01/17/18 21:56 Dose: 50 mg Morphine Sulfate (Morphine) 4 mg IVP Q4H PRN PRN Reason: Pain, severe (8-10) Mupirocin (Bactroban Ointment) 0 gm TOP BID [facility] Last Admin: 01/17/18 17:25 Dose: 1 applic Ondansetron HCl (Zofran Inj) 4 mg IVP Q6H PRN PRN Reason: Nausea/Vomiting Last Admin: 01/14/18 20:05 Dose: 4 mg Tramadol HCl (Ultram) 50 mg PO Q4H PRN PRN Reason: Pain, moderate (4-7) Last Admin: 01/18/18 05:49 Dose: 50 mg - Labs Labs: 01/17/18 07:00 01/17/18 07:00 PT 18.1 SECONDS (9.4-12.5) H 01/18/18 06:35 INR 1.56 (0.93-1.08) H 01/18/18 06:35 APTT 21.6 Seconds (25.1-36.5) L 01/16/18 07:00 - Constitutional Appears: Non-toxic, No Acute Distress - Head Exam Head Exam: ATRAUMATIC, NORMAL INSPECTION, NORMOCEPHALIC - Eye Exam Eye Exam: EOMI, Normal appearance - ENT Exam ENT Exam: Mucous Membranes Moist - Respiratory Exam Respiratory Exam: Clear to Ausculation Bilateral, NORMAL BREATHING PATTERN - Cardiovascular Exam Cardiovascular Exam: REGULAR RHYTHM, +S1, +S2 - GI/Abdominal Exam GI & Abdominal Exam: Soft. absent: Firm, Rigid, Tenderness - Extremities Exam Extremities Exam: Pedal Edema, Tenderness Additional comments: pedal pulses DP and PT present bilaterally, winsome drains in place, lower extremity compartments are soft, wound appears to be stable, - Neurological Exam Neurological Exam: Alert, Awake, Oriented x3 - Skin Additional comments: venous stasis changes in the lower legs bilaterally Assessment and Plan - Assessment and Plan (Free Text) Assessment: 67 yr old female s/p I&D 01/14 POD 4 with improving left lower leg infection secondary to venous stasis Plan: -continue to monitor leg closely -one winsome drain removed today, dressing chnages -CBC w/diff -PT -PRN pain medication -DVT ppx -antibiotics per ID -discussed plan with Dr. Zhu -further recs per Dr. Marko Vu PGY2
[2018-01-18 08:44] LABS: BASO # 0.02 K/mm3 (0.0-2.0); BASO % 0.2 % (0.0-3.0); EOS # 0.3 (0.0-0.7); EOS % 3.5 % (1.5-5.0); GRAN # 6.5 (1.4-6.5); HEMOGLOBIN 10.5 g/dL (12.0-16.0); MEAN CELL VOLUME 78.3 fl (80.0-105.0); MEAN CORPUSCULAR HEMOGLOBIN 26.3 pg (25.0-35.0); MEAN CORPUSCULAR HGB CONC 33.5 g/dl (31.0-37.0); MEAN PLATELET VOLUME 10.4 fl (7.0-11.0); MONO # 0.8 (0.1-0.6); MONO % 8.3 % (1.0-6.0); RED CELL DISTRIBUTION WIDTH 15.1 % (11.5-14.5); WHITE BLOOD COUNT 9.7 10^3/ul (4.5-11.0)
--- NOTE | 2018-01-18 08:59 | PN ---
DATE: 01/17/2018 PULMONARY PROGRESS NOTE REFERRING PHYSICIAN: Prema Strong MD. SUBJECTIVE: She is lying in the bed, head at 45 degrees. Night was unremarkable. No headache. No rhinitis. No chest pain. No abdominal pain. Still has a left leg discomfort. Has an Anibal wrap. OBJECTIVE: GENERAL: In no acute distress. VITAL SIGNS: Temperature is 99, heart rate is 62, respiratory rate is 18, blood pressure 118/62, pulse ox 95% on room air. HEENT: Moist mucous membranes. Crowded airway. NECK: Supple. No JVD. LUNGS: Have a fair airflow with rhonchi. HEART: S1 and S2. ABDOMEN: Soft and nontender. No organomegaly. EXTREMITIES: No edema of the right leg. Left leg is wrapped with Anibal. Mildly tender and swelling. NEUROLOGICAL: Awake and alert. Follows simple commands. MEDICATIONS: She is on aspirin 81 mg daily; Bactroban ointment to affected area twice a day; Benadryl 25 mg at bedtime p.r.n.; Colace 100 mg daily; ferrous sulfate 324 mg three times a day; Lasix is at 40 mg daily; metoprolol tartrate 50 mg at bedtime; Lovenox 40 mg subcu daily; cefepime 1 g IV every 12 hours; morphine 4 mg every 4 hours p.r.n.; Motrin 400 mg every 6 hours p.r.n.; Tapazole 5 mg Thursday, Thursday and Thursday; Ultram is every 4 hours p.r.n.; vancomycin 1 g IV every 12 hours; Zestril 20 mg daily; Zofran p.r.n. basis. LABORATORY DATA: Shows hemoglobin 9.8, hematocrit 30.1, WBC 10.4, platelet is 323. Sodium 137, potassium 4.1, chloride 97, bicarbonate 34, BUN 11, creatinine 0.5, glucose 93, calcium 8.2, phosphorus 3.1, magnesium 2. Wound has E. coli. Has a CAT scan of the lower extremity done yesterday, which shows postsurgical changes in the left with surgical drains in place, most compatible with cellulitis of the lower extremity. Radha Tellez MD
--- NOTE | 2018-01-18 09:25 | PN ---
DATE: 01/15/2018 SUBJECTIVE: The patient is a 67-year-old female. Looking comfortable. Night was unremarkable. No fever. No chills. No nausea, vomiting, or diarrhea. Left leg with Anibal wraps and top steep tender, status post abscess drainage. PHYSICAL EXAMINATION: VITAL SIGNS: Temperature 98, heart rate 61, respiratory rate 20, blood pressure 113/60, pulse oximetry 96% on room air. HEENT: Head: Normocephalic, atraumatic. Eyes: PERRLA. Extraocular muscles intact. Conjunctivae clear. Nose: Patent. Mucous membrane moist. NECK: Supple. No carotid bruit. No JVD or thyromegaly. CHEST: Bilaterally symmetrical. HEART: S1 and S2 positive. LUNGS: Clear to auscultation. ABDOMEN: Soft, bowel sounds positive. No organomegaly. EXTREMITIES: No edema. No cyanosis. NEUROLOGIC: The patient is awake and alert. Follows simple commands. MEDICATIONS: Aspirin, Benadryl, Colace, saline, Dilaudid, ferrous sulfate, Lasix, metoprolol, cefepime, morphine, Tapazole, vancomycin, Zestril, and Zofran. LABORATORY DATA: Hemoglobin 9.6, hematocrit 28.7, white blood cells 12.5, platelets 283. Sodium 139, potassium 4.1, BUN 12, creatinine 0.6. Wound has gram-negative rods. ASSESSMENT AND PLAN: Ms. Xenia Hall is a 67-year-old lady with multiple medical problems , recurrent cellulitis and nonhealing ulcers, abscess from the left lower extremity requiring extensive debridement, on antibiotics, hypertension, hypothyroidism, obesity, sleep apnea syndrome, pulmonary hypertension. Gastric and deep venous thrombosis prophylaxis. Repeat labs. Keep head elevated at 45 degrees. Bronchodilators. We will follow up. Prema Strong MD MTDD
[2018-01-18] MEDS ORDERED: Enoxaparin 40 mg Syringe SC SCH (10:00)
[2018-01-18] MEDS: Cefepime 1gm in NS 100ml 1 GM/100 ML BAG IVPB SCH (10:15)
[2018-01-18] MEDS: methIMAzole 5 MG TAB PO SCH (10:16)
[2018-01-18] MEDS: Mupirocin 2% Ointment 15 GM TUBE TOP SCH ×2 (10:17→17:25)
--- NOTE | 2018-01-18 15:33 | CP.PCM.PN ---
Subjective - Date & Time of Evaluation Date of Evaluation: 01/18/18 Time of Evaluation: 15:00 - Subjective Subjective: Infectious Disease Follow Up: January 18, 2018 67 year old female with PMH of hypertension and chronic venous insufficiency presenting to the ER for 6 day history of worsening left leg pain and swelling. Patient has history of chronic insufficiency in both lower legs and has been seeing Dr. Romario DPM for wound care. Patient saw her skelp processor, Dr. Partida, on Thursday and ultrasound of her legs was negative at that time. Today , patient states pain and swelling in left leg was worsening. She denies recent infections and trauma to her legs. She denies CP, SOB, fevers, abdominal pain, nausea, vomiting, chills, recent sickness, sick contacts at home, and recent travel. The patient apparently also had a DVT to left lower extremity in the past treated with surgical venous laserectomy. Very slight improvement to the superinfection of the left leg pain. Still complains of pain to the left lower leg. MRI and CT did not show discrete abscess formation. Taken to OR yesterday and two abscesses (lateral and medial lower leg) were found with communication between the abscesses posteriorly. Debridement performed. Patient feeling better now but still complaining of left leg pain although decreasing. Mild drainage. On the whole the patient is feeling better. Objective - Vital Signs/Intake and Output Vital Signs (last 24 hours): Temp Pulse Resp BP Pulse Ox 99 F 59 L 18 119/54 L 95 01/18/18 06:00 01/18/18 10:27 01/18/18 06:00 01/18/18 10:27 01/18/18 06:00 Intake and Output: 01/18/18 01/18/18 06:59 18:59 Intake Total 560 480 Balance 560 480 - Medications Medications: Current Medications Aspirin (Aspirin Chewable) 81 mg PO DAILY [facility] Last Admin: 01/18/18 10:15 Dose: 81 mg Diphenhydramine HCl (Benadryl) 25 mg PO HS PRN PRN Reason: Insomnia Last Admin: 01/17/18 23:54 Dose: 25 mg Docusate Sodium (Colace) 100 mg PO DAILY [facility] Last Admin: 01/18/18 10:16 Dose: 100 mg Enoxaparin Sodium (Lovenox) 40 mg SC DAILY [facility] PRN Reason: Protocol Last Admin: 01/18/18 10:26 Dose: 40 mg Ferrous Sulfate (Feosol) 324 mg PO TID [facility] Last Admin: 01/18/18 13:40 Dose: 324 mg Furosemide (Lasix) 40 mg PO DAILY [facility] Last Admin: 01/18/18 10:23 Dose: Not Given Home Med (Home Med) 1 unit PO [facility] Last Admin: 01/17/18 22:57 Dose: Not Given Vancomycin HCl (Vancomycin 1gm) 1 gm in 250 mls @ 167 mls/hr IVPB Q12H [facility] PRN Reason: Protocol Last Admin: 01/18/18 05:47 Dose: 167 mls/hr Cefepime HCl (Maxipime 1gm) 1 gm in 100 mls @ 100 mls/hr IVPB Q12 [facility] PRN Reason: Protocol Last Admin: 01/18/18 10:15 Dose: 100 mls/hr Ibuprofen (Motrin Tab) 400 mg PO Q6H PRN PRN Reason: Fever >100.4 F Last Admin: 01/13/18 20:58 Dose: 400 mg Lisinopril (Zestril) 20 mg PO DAILY [facility] Last Admin: 01/18/18 10:27 Dose: Not Given Methimazole (Tapazole) 5 mg PO [facility] Last Admin: 01/18/18 10:16 Dose: 5 mg Metoprolol Tartrate (Lopressor) 50 mg PO [facility] Last Admin: 01/17/18 21:56 Dose: 50 mg Morphine Sulfate (Morphine) 4 mg IVP Q4H PRN PRN Reason: Pain, severe (8-10) Mupirocin (Bactroban Ointment) 0 gm TOP BID [facility] Last Admin: 01/18/18 10:17 Dose: 1 applic Ondansetron HCl (Zofran Inj) 4 mg IVP Q6H PRN PRN Reason: Nausea/Vomiting Last Admin: 01/14/18 20:05 Dose: 4 mg Tramadol HCl (Ultram) 50 mg PO Q4H PRN PRN Reason: Pain, moderate (4-7) Last Admin: 01/18/18 05:49 Dose: 50 mg - Labs Labs: 01/18/18 08:25 01/17/18 07:00 PT 18.1 SECONDS (9.4-12.5) H 01/18/18 06:35 INR 1.56 (0.93-1.08) H 01/18/18 06:35 APTT 21.6 Seconds (25.1-36.5) L 01/16/18 07:00 - Constitutional Appears: Non-toxic, No Acute Distress, Chronically Ill - Head Exam Head Exam: ATRAUMATIC, NORMOCEPHALIC - Eye Exam Eye Exam: EOMI, PERRL Pupil Exam: NORMAL ACCOMODATION, PERRL - ENT Exam ENT Exam: Mucous Membranes Moist, Normal External Ear Exam, TM's Normal Bilaterally - Neck Exam Neck Exam: Full ROM, Normal Inspection - Respiratory Exam Respiratory Exam: Clear to Ausculation Bilateral, NORMAL BREATHING PATTERN. absent: Rales, Rhonchi, Wheezes - Cardiovascular Exam Cardiovascular Exam: REGULAR RHYTHM, RRR, +S1, +S2 - GI/Abdominal Exam GI & Abdominal Exam: Soft, Normal Bowel Sounds. absent: Distended, Tenderness - Extremities Exam Extremities Exam: Full ROM, Joint Swelling, Pedal Edema Additional comments: Initially, the lower left leg was tender, swollen, erythematous, and edematous with ulcerations present. pulse difficult to palpate in left leg due to swelling. pulse is +2 in right leg. Sensation is diminished in left leg compared to right. Taken to OR for I&D and debridement finding two abscesses in the lateral and medial lower left leg with posterior communications. Left leg has decreased swelling. Decreasing pain. - Neurological Exam Neurological Exam: Alert, Awake, CN II-XII Intact, Oriented x3 - Psychiatric Exam Psychiatric exam: Normal Affect, Normal Mood - Skin Additional comments: On admission, the lower left leg is tender, swollen, erythematous, and edematous with ulcerations present. pulse difficult to palpate in left leg due to swelling. pulse is +2 in right leg. Sensation is diminished in left leg compared to right. S/P I&D and debridement of the left lower leg. Overall, swelling and pain has improved significantly. Assessment and Plan - Assessment and Plan (Free Text) Assessment: 67 yo female with PVD of the lower extremities and history of HTN presenting with erythema, edema, pain, and tenderness to the left leg with open ulcerations and swelling of the same leg. Given one dose of Vancomycin IV. Supportive care. Will continue with Vancomycin and Cefepime IV at this time. No history of renal insufficiency. Right ankle tendon repair in April 2017. Outward signs of peripheral vascular disease. Monitor LFTs. Patient revealed further information supporting long standing peripheral vascular disease. S/P I&D 01/14/2018. Leukocytosis improved to 10.8 today. Decreased pain to left lower leg. Surgery found abscesses in the left lower leg in lateral and medial aspects with posterior communication that were I&D and debrided on 2017. Patient states that she feels much better but still has pain in the left lower leg. Mild drainage from sites. Would try to complete 14 days of antibiotics from the date of the last surgery. Thank you for allowing me to participate in the care of the patient, we will follow with you.
--- NOTE | 2018-01-18 18:19 | CARD ---
APPROVED REPORT Date of service: 01/18/2018 EXAM: Two-dimensional and M-mode echocardiogram with Doppler and color Doppler. INDICATION 2D DIMENSIONS IVSd1.5 (0.7-1.1cm)LVDd4.7 (3.9-5.9cm) PWd1.0 (0.7-1.1cm)LVDs3.2 (2.5-4.0cm) FS (%) 32.9 %LVEF (%)61.3 (>50%) M-Mode DIMENSIONS Left Atrium (MM)4.30 (2.5-4.0cm)Aortic Root3.00 (2.2-3.7cm) Aortic Cusp Exc.2.00 (1.5-2.0cm) Aortic Valve AoV Peak Mxnhxtnn050.0cm/Jeremy Peak GR.25mmHgAI P 1/2 Kpbs440er Mitral Valve MV E Tgmxtegl935.0cm/sMV E Peak Gr.124mmHgMV A Dfidwtkn733.0cm/s E/A ratio0.9 TDI Lateral E' Peak V10.50cm/sMedial E' Peak V7.51cm/sE/Lateral E'12.0 E/Medial E'16.8 Tricuspid Valve TR Peak Vbitetil989ur/sRAP [id number] Peak Gr.45mmHg [id number] LEFT VENTRICLE The left ventricle is normal size. There is mild concentric left ventricular hypertrophy. The left ventricular function is normal. The left ventricular ejection fraction is within the normal range. There is normal LV segmental wall motion. Transmitral Doppler flow pattern is Grade I-abnormal relaxation pattern. RIGHT VENTRICLE The right ventricle is normal size. There is normal right ventricular wall thickness. The right ventricular systolic function is normal. ATRIA The left atrium is mildly dilated. The right atrium size is normal. AORTIC VALVE The aortic valve is moderately thickened. There is mild to moderate aortic regurgitation. There is no aortic valvular stenosis. MITRAL VALVE The mitral valve is mildly thickened. Mitral regurgitation is mild. There is no mitral valve stenosis. TRICUSPID VALVE There is moderate tricuspid regurgitation. There is moderate pulmonary hypertension. GREAT VESSELS The aortic root is normal in size. The IVC is normal in size and collapses >50% with inspiration. PERICARDIAL EFFUSION There is no pericardial effusion. <Conclusion> The left ventricle is normal size. There is mild concentric left ventricular hypertrophy. The left ventricular function is normal. The left ventricular ejection fraction is within the normal range. There is normal LV segmental wall motion. Transmitral Doppler flow pattern is Grade I-abnormal relaxation pattern. There is mild to moderate aortic regurgitation. Mitral regurgitation is mild. There is moderate tricuspid regurgitation. There is moderate pulmonary hypertension.
[2018-01-18 18:41] VITALS: BP 125/56; PULSE 60; RESP 20; TEMP 98.4; O2SAT 96
--- NOTE | 2018-01-18 23:04 | PN ---
DATE: 01/18/2018 REFERRING PHYSICIAN: Dr. Prema Strong. SUBJECTIVE: Subjectively, she is out of bed to chair, feels better. No headache. No rhinitis. Short of breath on exertion. No nausea. No vomiting. No diarrhea. Has Anibal wraps on the left lower extremity, still have pain and tenderness. OBJECTIVE: GENERAL: In no acute distress. VITAL SIGNS: Temperature is 98, heart rate 60, respiratory rate is 20, blood pressure 125/56, pulse ox 96% on room air. HEENT: Moist mucous membrane. Crowded airway. NECK: Supple. No JVD. LUNGS: Have fair airflow with rhonchi. HEART: S1, S2. ABDOMEN: Soft, nontender, no organomegaly. EXTREMITIES: Has Anibal wraps on the left lower extremity, tender to touch. NEUROLOGIC: Awake, alert and follows simple command. MEDICATIONS: She is on aspirin 81 mg daily, Benadryl 25 mg at bedtime p.r.n., Colace 100 mg daily, ferrous sulfate 325 mg three times a day, Lasix 40 mg daily, metoprolol tartrate 50 mg at bedtime, Lovenox 40 mg subcu daily, cefepime 1 g every 12 hours, morphine 4 mg every 4 hours p.r.n., Motrin p.r.n. basis, Tapazole 5 mg, Thursday, Thursday, Thursday, Ultram 50 mg every 4 hours p.r.n., vancomycin 1 g IV every 12 hours, Zestril 20 mg daily, Zofran p.r.n. basis. LABORATORY DATA: Hemoglobin is 10.5, hematocrit 31.3, WBC 9.7, platelet count is 327. INR 1.56. Sodium 137, potassium 4.1 from yesterday. Wound culture has E-coli. Had echocardiogram done today, which shows right ventricle systolic pressure is 55, mild concentric left ventricular hypertrophy, LV ejection fraction within normal range, moderate pulmonary hypertension. IMPRESSION AND PLAN: Cellulitis of lower extremity with abscess requiring incision and drainage, hypertension, hypothyroid, obesity, may have sleep apnea syndrome, pulmonary hypertension. There may have diastolic cardiac dysfunction. Pulmonary point of view, doing okay. Continue antibiotics. Keep head at 45 degrees. Sleep apnea precaution. Outpatient sleep study and also need pulmonary function tests. Thank you and we will follow with you. Radha Tellez MD [facility] # [id number]
--- NOTE | 2018-01-19 20:06 | DS ---
date 01/18/18 The patient was admitted on 01/10/2018 and discharged to TCU on 01/18/2018 for continuity of care. CHIEF COMPLAINT: Swelling of the leg. HISTORY OF PRESENT ILLNESS: Ms. Xenia Hall is a 67-year-old female with a past medical history of hypertension, chronic venous insufficiency, came to the emergency room for 6 days' history of worsening of left leg pain. The patient has a history of chronic insufficiency in both extremities. Patient saw the slot floor person Dr. Partida on Thursday and ultrasound of her legs was negative. Patient denies recent infection to her legs. We admitted the patient, did CAT scan of the chest, lower extremity ultrasound, lower extremity MRI. Patient went for surgery. Dr. Casillas of the ID on the case. Dr. Tellez is the satellite technician, who cleared the patient for surgery. Dr. Roderick Zhu is the surgeon. Patient improved, sent to TCU for continuity of care and for physical therapy and rehab. PAST MEDICAL HISTORY: Hypertension, PVD, cataract, sciatica, hyperthyroidism, cataract surgery, right ankle tendon repair. ALLERGIES: PATIENT IS NOT ALLERGIC WITH ANY MEDICATIONS. HABITS: No smoking. No drugs. No ethanol. HOME MEDICATIONS: Reviewed by me. FAMILY HISTORY: Father and mother, noncontributory. REVIEW OF SYSTEMS: Patient was seen and examined on the bedside, looking comfortable, complaining about constipation. Daughter was sitting on the bedside also. All questions answered. Patient is feeling feverish. No nausea or vomiting. No hematuria or hematochezia. PHYSICAL EXAMINATION: VITAL SIGNS: Temperature 99, pulse 55, respiratory rate 18, blood pressure 111/60, pulse oximetry 95, T-max 100.1. HEENT: Head is normocephalic, atraumatic. Eyes: PERRLA. Extraocular muscles intact. Conjunctivae clear. Nose patent. Mucous membrane moist. NECK: Supple. No carotid bruit, JVD or thyromegaly. CHEST: Bilaterally symmetrical. HEART: S1 and S2 positive. LUNGS: Clear to auscultation. ABDOMEN: Soft. Bowel sounds present. No organomegaly. EXTREMITIES: Upper extremity, no edema, no cyanosis. Lower extremity, left extremity has dressing. NEUROLOGIC: Patient is awake and alert. Follows simple command. MEDICATIONS: Benadryl, docusate, Lovenox, ferrous sulfate, Lasix, vancomycin, Maxipime, Motrin, Zestril, Tapazole, Lopressor, morphine, Zofran, tramadol. LABORATORY DATA: White blood cells 10.4, hemoglobin 9.8, hematocrit 30.1, platelets 333. Sodium 137, potassium 4.1, BUN 11, creatinine 0.5, glucose 93. ASSESSMENT AND PLAN: Ms. Xenia Hall is a 67-year-old lady with anemia, hypochloremia, venous insufficiency, has severe peripheral vascular disease, status post incision and drainage, postoperative day 4, with improving left lower leg infection secondary to venous stasis. Continue monitoring of the leg closely. [place] drain removed today. Dressing change. Repeat labs. Deep vein thrombosis prophylaxis. Antibiotics as per Infectious Disease. Appreciated surgeon's and ID's input. Seen by slot floor person also. Constipation, lactulose given. Cellulitis of the lower extremities. Lower extremity CAT scan done, reviewed by me. Nonhealing ulcer on the left lower extremity with abscess requiring incision and drainage, hypertension, hypothyroidism, sleep apnea syndrome, Gram-negative rods in the wound, pulmonary hypertension. Continue present management. Out of bed, physical therapy. Gastrointestinal and deep vein thrombosis prophylaxis. Length of time discussion done with the patient's daughter. All questions answered. We will follow up. Prema Strong MD [facility]
--- NOTE | 2018-01-26 10:22 | OP ---
Copied To: Roderick Zhu MD Attending MD: Roderick Zhu MD PROCEDURE DATE: 01/14/2018 PREOPERATIVE DIAGNOSES: Abscess, rule out necrotizing fascitis of the left leg below the knee. POSTOPERATIVE DIAGNOSES: Abscess, rule out necrotizing fascitis of the left leg below the knee. SURGEON: Rodreick Zhu MD. GENERAL HANDLING SUPERVISOR: Shantelle Aviles DO. DESCRIPTION OF PROCEDURE: In the operating room, the patient was identified by name, name of the procedure, laterality and my ann marie. This was done after the wound was dressed with Betadine and prepped and draped. The time-out was successful having identified the site, it labelled, checked against the consent and the operation proceeded. There were an anterior and posterior infection. Both were opened bluntly. The skin was torn with the finger. This area was then debrided removing all obviously tissue. It seemed to track anteroposteriorly, but not to go deep. The fascia was intact. This was cultured aerobically and anaerobically and several Penroses were placed and tied in a loop. The area was debrided, irrigated with peroxide and a light pressure dressing was applied with a nonstick Kerlix and an Anibal bandage. The patient was taken to the recovery room in good condition after the sponge and needle counts were declared correct. Roderick Zhu MD
== END 2018-01-18 18:58 | DRG 854 ==
LOC: ED 09:32 → ERH 12:45 → 5RSO 16:28
PROVIDERS: ADMIT Internal Medicine; ATTEND Internal Medicine
PROC: 0Y9J0ZZ Drainage of Left Lower Leg, Open Approach (ICD-10-PCS; 2018-01-14)
PROC: 0JDP0ZZ Extraction of Left Lower Leg Subcutaneous Tissue and Fascia, Open Approach (ICD-10-PCS; principal; 2018-01-14 07:30)
DX: A41.9 Sepsis, unspecified organism (principal); L03.115 Cellulitis of right lower limb; L97.929 Non-pressure chronic ulcer of unspecified part of left lower leg with unspecified severity; L03.116 Cellulitis of left lower limb; L02.416 Cutaneous abscess of left lower limb; R65.20 Severe sepsis without septic shock; E11.622 Type 2 diabetes mellitus with other skin ulcer; E11.51 Type 2 diabetes mellitus with diabetic peripheral angiopathy without gangrene; I27.20 Pulmonary hypertension, unspecified; I10 Essential (primary) hypertension; I87.2 Venous insufficiency (chronic) (peripheral); E05.90 Thyrotoxicosis, unspecified without thyrotoxic crisis or storm; E87.5 Hyperkalemia; K29.70 Gastritis, unspecified, without bleeding; K21.9 Gastro-esophageal reflux disease without esophagitis; B96.20 Unspecified Escherichia coli [E. coli] as the cause of diseases classified elsewhere; I87.8 Other specified disorders of veins; D64.9 Anemia, unspecified; K59.00 Constipation, unspecified; E83.41 Hypermagnesemia; E78.00 Pure hypercholesterolemia, unspecified; G47.30 Sleep apnea, unspecified; M19.90 Unspecified osteoarthritis, unspecified site; M54.30 Sciatica, unspecified side; E83.51 Hypocalcemia; E66.9 Obesity, unspecified; Z68.34 Body mass index [BMI] 34.0-34.9, adult

== ENCOUNTER 2018-01-18 18:58 | Inpatient (IN) | payer MEDICARE ==
[2018-01-18 20:10] VITALS: BMI 34.9
[2018-01-18] MEDS ORDERED: Morphine 4 mg/ml ISec IVP PRN (20:11)
[2018-01-18] MEDS ORDERED: Pneumococcal 23-Valent Vaccine IM ONE (21:20)
[2018-01-18] MEDS ORDERED: Vancomycin 1gm in NS 250ml 1 GM/250 ML BAG IVPB SCH (22:00)
[2018-01-18] MEDS ORDERED: Cefepime 1gm in NS 100ml 1 GM/100 ML BAG IVPB SCH (22:00)
[2018-01-18] MEDS ORDERED: Home Med 1 UNIT PO SCH (22:00)
[2018-01-18] MEDS ORDERED: NORMAL SALINE ADDVANTAGE IVPB SCH (22:00)
[2018-01-18] MEDS ORDERED: CEFEPIME IVPB SCH (22:00)
[2018-01-18] MEDS ORDERED: [UNRECOGNIZED DRUG - OTHER] IVPB SCH (22:00)
[2018-01-18] MEDS ORDERED: VANCOMYCIN IVPB SCH (22:00)
[2018-01-18] MEDS ORDERED: NS IVPB SCH (22:00)
[2018-01-19] MEDS ORDERED: Enoxaparin 40 mg Syringe SC SCH ×2 (06:00→10:00)
[2018-01-19 07:22] LABS: HEMOGLOBIN 10.1 g/dL (12.0-16.0); MEAN CELL VOLUME 78.1 fl (80.0-105.0); MEAN CORPUSCULAR HEMOGLOBIN 25.8 pg (25.0-35.0); MEAN PLATELET VOLUME 9.7 fl (7.0-11.0); RBC 3.92 10^6/uL (3.5-6.1); RED CELL DISTRIBUTION WIDTH 15.3 % (11.5-14.5); WHITE BLOOD COUNT 8.5 10^3/ul (4.5-11.0)
[2018-01-19 07:30] LABS: BLOOD UREA NITROGEN 9 mg/dL (7-21); CALCIUM 8.2 mg/dL (8.4-10.5); GFR AFRICAN-AMERICAN > 60; GFR NON-AFRICAN AMERICAN > 60
--- NOTE | 2018-01-19 08:26 | CP.PCM.PN ---
Subjective - Date & Time of Evaluation Date of Evaluation: 01/19/18 Time of Evaluation: 07:00 - Subjective Subjective: Patient seen and examined at bedside this AM. No adverse events overnight. Patient was transferred to TCU yesterday and worked with PT with some pain, but overall tolerated well. States that pain is improving, denies any fevers or chills. Objective - Vital Signs/Intake and Output Vital Signs (last 24 hours): Temp Pulse Resp BP Pulse Ox 100.2 F H 88 20 133/62 01/18/18 20:53 01/18/18 20:53 01/18/18 20:53 01/18/18 20:53 - Medications Medications: Current Medications Aspirin (Aspirin Chewable) 81 mg PO 0800 [facility] PRN Reason: Protocol Last Admin: 01/19/18 07:58 Dose: 81 mg Diphenhydramine HCl (Benadryl) 25 mg PO HS PRN; Protocol PRN Reason: Insomnia Docusate Sodium (Colace) 100 mg PO DAILY [facility] PRN Reason: Protocol Enoxaparin Sodium (Lovenox) 40 mg SC DAILY [facility] PRN Reason: Protocol Ferrous Sulfate (Feosol) 324 mg PO TID [facility] PRN Reason: Protocol Furosemide (Lasix) 40 mg PO DAILY [facility] PRN Reason: Protocol Home Med (Home Med) 1 unit PO HS [facility] Cefepime HCl (Maxipime 1gm) 1 gm in 100 mls @ 200 mls/hr IVPB 0600,1800 [facility] PRN Reason: Protocol Vancomycin HCl (Vancomycin 1gm) 1 gm in 250 mls @ 250 mls/hr IVPB 0600,1800 [facility] PRN Reason: Protocol Ibuprofen (Motrin Tab) 400 mg PO Q6H PRN; Protocol PRN Reason: Fever >100.4 F Lactulose (Enulose) 10 gm PO DAILY PRN PRN Reason: Constipation Lisinopril (Zestril) 20 mg PO DAILY [facility] PRN Reason: Protocol Methimazole (Tapazole) 5 mg PO MWF [facility] PRN Reason: Protocol Metoprolol Tartrate (Lopressor) 50 mg PO HS [facility] PRN Reason: Protocol Morphine Sulfate (Morphine) 4 mg IVP Q4H PRN; Protocol PRN Reason: Pain, severe (8-10) Mupirocin (Bactroban Ointment) 0 gm TOP BID [facility] PRN Reason: Protocol Ondansetron HCl (Zofran Inj) 4 mg IVP Q6H PRN; Protocol PRN Reason: Nausea/Vomiting Tramadol HCl (Ultram) 50 mg PO Q4H PRN; Protocol PRN Reason: Pain, moderate (4-7) Last Admin: 01/18/18 21:55 Dose: 50 mg - Labs Labs: 01/19/18 07:05 01/19/18 07:05 - Constitutional Appears: Well, Non-toxic, No Acute Distress - Head Exam Head Exam: ATRAUMATIC, NORMOCEPHALIC - Eye Exam Eye Exam: Normal appearance. absent: Conjunctival injection, Scleral icterus - ENT Exam ENT Exam: Mucous Membranes Moist, Normal Oropharynx - Respiratory Exam Respiratory Exam: NORMAL BREATHING PATTERN. absent: Accessory Muscle Use, Respiratory Distress - Cardiovascular Exam Cardiovascular Exam: RRR - GI/Abdominal Exam GI & Abdominal Exam: Soft. absent: Distended, Tenderness - Extremities Exam Extremities Exam: Normal Capillary Refill. absent: Pedal Edema Additional comments: BL lower legs with chronic skin changes with superficial venous stasis ulcers. Left lower leg with improving erythema and edema surrounding medial and lateral wounds/incision sites--worse on the lateral side. 2 winsome drains still present in the lateral leg--one extending posterior and one extending superior. Both areas tender to palpation but less than previous. Moderate amount of sanguinous/purulen drainage from both wounds - Neurological Exam Neurological Exam: Alert, Awake, Oriented x3 - Psychiatric Exam Psychiatric exam: Normal Affect, Normal Mood - Skin Skin Exam: Dry, Intact, Normal Color, Warm Additional comments: except as noted in extremity exam Assessment and Plan - Assessment and Plan (Free Text) Assessment: 67F with chronic venous stasis and left lower leg abscesses POD#5 s/p incision and drainage of abscesses and debridement of necrotic tissue with winsome drains placed Plan: Continue to trend CBC Continue to trend vitals and monitor for fevers Continue to follow up ID recs--currently recommending 14 days of antibiotics after surgery, so 9 more days Continue to encourage PT involvement Will continue to monitor lower leg for any changes, currently improving, will continue current management Recommend FELI's to ensure appropriate arterial flow to the lower extremities Discussed with Dr. Zhu, further recs per him Shantelle Aviles, PGY2
[2018-01-19] MEDS: Mupirocin 2% Ointment 15 GM TUBE TOP SCH ×2 (10:15→17:32)
--- NOTE | 2018-01-19 13:35 | CP.PCM.CON ---
History of Present Illness - History of Present Illness History of Present Illness: Infectious Disease Consultation/Follow Up: January 19, 2018 67 year old female with PMH of hypertension and chronic venous insufficiency presenting to the ER for 6 day history of worsening left leg pain and swelling. Patient has history of chronic insufficiency in both lower legs and has been seeing Dr. Romario DPM for wound care. Patient saw her medical social worker, Dr. Partida, on Thursday and ultrasound of her legs was negative at that time. Today , patient states pain and swelling in left leg was worsening. She denies recent infections and trauma to her legs. She denies CP, SOB, fevers, abdominal pain, nausea, vomiting, chills, recent sickness, sick contacts at home, and recent travel. The patient apparently also had a DVT to left lower extremity in the past treated with surgical venous laserectomy. Very slight improvement to the superinfection of the left leg pain. Still complains of pain to the left lower leg. MRI and CT did not show discrete abscess formation. Taken to OR yesterday and two abscesses (lateral and medial lower leg) were found with communication between the abscesses posteriorly. Debridement performed. Patient feeling better now but still complaining of left leg pain although decreasing. Mild drainage. On the whole the patient is feeling better. Transferred to TCU for antibiotics and rehab of the leg. PMHx: HTN, PVD, Cataracts, Sciatica, Hyperthyroidism. PSHx: Cataract surgery, right ankle tendon repair. Allergies: NKDA Social Hx: No tobacco, EtOH, or illicit drug use Medications: Pravastatin, Metoprolol, Tapazole, Lisinopril, Furosemide, Ciprofloxacin, ASA, Cjfznkcdjkblqg-Yqxjzxuyhrtgxf-Obwi pill Family Hx: none given ROS: No fevers, chills, nausea, vomiting, diarrhea, headaches, dizziness, chest pain , abdominal pain, melena, hematuria, hematemesis, hematochezia, depression, anxiety Patient with left lower leg pain. Past Patient History - Infectious Disease Hx of Infectious Diseases: None - Tetanus Immunizations Tetanus Immunization: Unknown - Past Medical History & Family History Past Medical History?: Yes - Past Social History Smoking Status: Never Smoked - CARDIAC Hx Cardiac Disorders: Yes Hx Hypertension: Yes - PULMONARY Hx Respiratory Disorders: No - NEUROLOGICAL Hx Neurological Disorder: No - HEENT Hx HEENT Problems: Yes Hx Cataracts: Yes - RENAL Hx Chronic Kidney Disease: No - ENDOCRINE/METABOLIC Hx Diabetes Mellitus Type 2: Yes (PRE DIABETES, NO MEDICATIONS) - HEMATOLOGICAL/ONCOLOGICAL Hx Blood Transfusions: No - INTEGUMENTARY Hx Dermatological Problems: Yes Hx Cellulitis: Yes (BLE) Other/Comment: CHRONIC NON HEALING WOUNDS BLE, HAS OPEN WOUNDS LEFT ANKLE AT PRESENT. - MUSCULOSKELETAL/RHEUMATOLOGICAL Hx Falls: No - GASTROINTESTINAL Hx Gastrointestinal Disorders: Yes (constipation,gastritis,gerd,pud) - GENITOURINARY/GYNECOLOGICAL Hx Genitourinary Disorders: No Hx Reproductive Disorders: No - PSYCHIATRIC Hx Psychophysiologic Disorder: No Hx Anxiety: No Hx Depression: No Hx Substance Use: No - SURGICAL HISTORY Hx Surgeries: Yes - ANESTHESIA Hx Anesthesia Reactions: No Hx Malignant Hyperthermia: No Meds Allergies/Adverse Reactions: Allergies Allergy/AdvReac Type Severity Reaction Status Date / Time No Known Allergies Allergy Verified 01/18/18 21:09 - Medications Medications: Current Medications Aspirin (Aspirin Chewable) 81 mg PO 0800 [facility] PRN Reason: Protocol Last Admin: 01/19/18 07:58 Dose: 81 mg Diphenhydramine HCl (Benadryl) 25 mg PO HS PRN; Protocol PRN Reason: Insomnia Docusate Sodium (Colace) 100 mg PO DAILY [facility] PRN Reason: Protocol Last Admin: 01/19/18 10:06 Dose: 100 mg Enoxaparin Sodium (Lovenox) 40 mg SC DAILY [facility] PRN Reason: Protocol Last Admin: 01/19/18 10:08 Dose: 40 mg Ferrous Sulfate (Feosol) 324 mg PO TID [facility] PRN Reason: Protocol Last Admin: 01/19/18 10:07 Dose: 324 mg Furosemide (Lasix) 40 mg PO DAILY [facility] PRN Reason: Protocol Last Admin: 01/19/18 10:10 Dose: 40 mg Home Med (Home Med) 1 unit PO HS [facility] Cefepime HCl (Maxipime 1gm) 1 gm in 100 mls @ 200 mls/hr IVPB 0600,1800 [facility] PRN Reason: Protocol Vancomycin HCl (Vancomycin 1gm) 1 gm in 250 mls @ 250 mls/hr IVPB 0600,1800 [facility] PRN Reason: Protocol Ibuprofen (Motrin Tab) 400 mg PO Q6H PRN; Protocol PRN Reason: Fever >100.4 F Lactulose (Enulose) 10 gm PO DAILY PRN PRN Reason: Constipation Lisinopril (Zestril) 20 mg PO DAILY [facility] PRN Reason: Protocol Last Admin: 01/19/18 10:10 Dose: 20 mg Methimazole (Tapazole) 5 mg PO MWF [facility] PRN Reason: Protocol Metoprolol Tartrate (Lopressor) 50 mg PO HS [facility] PRN Reason: Protocol Morphine Sulfate (Morphine) 4 mg IVP Q4H PRN; Protocol PRN Reason: Pain, severe (8-10) Mupirocin (Bactroban Ointment) 0 gm TOP BID [facility] PRN Reason: Protocol Last Admin: 01/19/18 10:15 Dose: 1 applic Ondansetron HCl (Zofran Inj) 4 mg IVP Q6H PRN; Protocol PRN Reason: Nausea/Vomiting Tramadol HCl (Ultram) 50 mg PO Q4H PRN; Protocol PRN Reason: Pain, moderate (4-7) Last Admin: 01/18/18 21:55 Dose: 50 mg Physical Exam - Constitutional Appears: Non-toxic, No Acute Distress, Chronically Ill - Head Exam Head Exam: ATRAUMATIC, NORMOCEPHALIC - Eye Exam Eye Exam: EOMI, PERRL Pupil Exam: NORMAL ACCOMODATION, PERRL - ENT Exam ENT Exam: Mucous Membranes Moist, Normal External Ear Exam, TM's Normal Bilaterally - Neck Exam Neck exam: Positive for: Full Rom, Normal Inspection - Respiratory Exam Respiratory Exam: Clear to Auscultation Bilateral, NORMAL BREATHING PATTERN. absent: Rales, Rhonchi, Wheezes - Cardiovascular Exam Cardiovascular Exam: REGULAR RHYTHM, RRR, +S1, +S2 - GI/Abdominal Exam GI & Abdominal Exam: Normal Bowel Sounds, Soft. absent: Distended, Tenderness - Extremities Exam Extremities exam: Positive for: full ROM, joint swelling, pedal edema Additional comments: Initially, the lower left leg was tender, swollen, erythematous, and edematous with ulcerations present. pulse difficult to palpate in left leg due to swelling. pulse is +2 in right leg. Sensation is diminished in left leg compared to right. Taken to OR for I&D and debridement finding two abscesses in the lateral and medial lower left leg with posterior communications. Left leg has decreased swelling. Decreasing pain. - Neurological Exam Neurological exam: Alert, CN II-XII Intact, Oriented x3 - Psychiatric Exam Psychiatric exam: Normal Affect, Normal Mood - Skin Additional comments: On admission, the lower left leg is tender, swollen, erythematous, and edematous with ulcerations present. pulse difficult to palpate in left leg due to swelling. pulse is +2 in right leg. Sensation is diminished in left leg compared to right. S/P I&D and debridement of the left lower leg. Overall, swelling and pain has improved significantly. Results - Vital Signs Recent Vital Signs: Last Vital Signs Temp 100.2 F H 01/18/18 20:53 Pulse 62 01/19/18 10:10 Resp 20 01/18/18 20:53 BP 115/63 01/19/18 10:10 Pulse Ox - Labs Result Diagrams: 01/19/18 07:05 01/19/18 07:05 Labs: Laboratory Results - last 24 hr 01/19/18 01/19/18 07:05 07:05 WBC 8.5 RBC 3.92 Hgb 10.1 L Hct 30.6 L MCV 78.1 L MCH 25.8 MCHC 33.0 RDW 15.3 H Plt Count 329 MPV 9.7 Sodium 138 Potassium 3.6 Chloride 97 L Carbon Dioxide 34 H Anion Gap 11 BUN 9 Creatinine 0.5 L Est GFR ( Amer) > 60 Est GFR (Non-Af Amer) > 60 Random Glucose 104 Calcium 8.2 L Assessment & Plan - Assessment and Plan (Free Text) Assessment: 67 yo female with PVD of the lower extremities and history of HTN presenting with erythema, edema, pain, and tenderness to the left leg with open ulcerations and swelling of the same leg. Given one dose of Vancomycin IV. Supportive care. Will continue with Vancomycin and Cefepime IV at this time. No history of renal insufficiency. Right ankle tendon repair in April 2017. Outward signs of peripheral vascular disease. Monitor LFTs. Patient revealed further information supporting long standing peripheral vascular disease. S/P I&D 01/14/2018. Leukocytosis improved to 10.8 today. Decreased pain to left lower leg. Surgery found abscesses in the left lower leg in lateral and medial aspects with posterior communication that were I&D and debrided on 2017. Patient states that she feels much better but still has pain in the left lower leg. Mild drainage from sites. Would try to complete 14 days of antibiotics from the date of the last surgery. Transferred to TCU now. She will be receiving 8 days of antibiotics here. Thank you for allowing me to participate in the care of the patient, we will follow with you.
[2018-01-19] MEDS: Collagenase 250 Units/gm Ointment(30 gm) TOP SCH (17:20)
[2018-01-19] MEDS: Vancomycin 1gm in NS 250ml 1 GM/250 ML BAG IVPB SCH (17:20)
[2018-01-19] MEDS: Cefepime 1gm in NS 100ml 1 GM/100 ML BAG IVPB SCH (17:21)
--- NOTE | 2018-01-20 05:13 | HP ---
01/18/18 CHIEF COMPLAINT: Leg pain. HISTORY OF PRESENT ILLNESS: Ms. Xenia Hall is a 67-year-old lady with past medical history of hypertension, chronic venous insufficiency, came to the emergency room with worsening of left leg pain and swelling. The patient has a history of chronic venous insufficiency in both legs. Seen by Dr. Romario CLIFTON for wound care. Patient saw fashion buying internship, Dr. Partida. An ultrasound was done of the leg. It was negative for DVT. Then patient came in [facility] emergency room with swelling of both legs, but left leg was worse. Denies any recent trauma. No chest pain. No shortness of breath. No fever. No chills. Patient has a history of DVT, treated with surgical venous laserectomy. Very slight improvement to the superinfection of the left leg. Patient went for MRI and CT scan. Taken to OR. There were two abscesses on lateral and medial lower leg, was communicating between the abscesses posteriorly. Debridement was performed. Patient started feeling a bit better, but still having pain. Transferred to TCU for continuity of care, antibiotics, wound care, and physical therapy. PAST MEDICAL HISTORY: Hypertension, PVD, cataract, sciatica, hyperthyroidism, history of cataract surgery, right ankle tendon repair, and incision and drainage. ALLERGIES: PATIENT IS NOT ALLERGIC WITH ANY MEDICATIONS. SOCIAL HISTORY: No smoking. No drugs. No ethanol. MEDICATIONS: Pravastatin, metoprolol, lisinopril, furosemide, ciprofloxacin, acetaminophen. FAMILY HISTORY: Father and mother, noncontributory. REVIEW OF SYSTEMS: Patient was seen and examined at the bedside, looking comfortable. Son was sitting at the bedside also. Now constipation is better. Getting pain medication. Pain is like 5/10. No hematuria, no hematochezia. No depression or anxiety. PHYSICAL EXAMINATION: VITAL SIGNS: Temperature 100.2, pulse 80 , respiratory rate 20, blood pressure 115/80 . HEENT: Head is normocephalic, atraumatic. Eyes PERRLA. Extraocular muscles intact. Conjunctivae clear. Nose patent. Mucous membrane moist. NECK: Supple. No carotid bruit, no JVD, no thyromegaly. CHEST: Bilaterally symmetrical. HEART: S1 and S2 positive. LUNGS: Clear to auscultation. ABDOMEN: Soft. Bowel sounds present. No organomegaly. EXTREMITIES: Left lower extremity has dressing. Upper extremity, no edema, no cyanosis. NEUROLOGIC: Patient is awake and alert. Follows simple commands. LABORATORY DATA: White blood cells 8.5, hemoglobin 10.1, hematocrit 30.6, platelets 329. Sodium 138, potassium 3.6. BUN 9, creatinine 0.5, glucose 104. ASSESSMENT AND PLAN: Ms. Xenia Hall, a 67-year-old lady with anemia, hypochloremia, with deep vein thrombosis of lower extremities, history of hypertension, has erythema, edema, and abscess on the left leg, with open ulceration and swelling of the same leg, got vancomycin and cefepime. No history of renal insufficiency. Right angle tendon repair in April 2017, status post incision and drainage on 01/14/2018. Leukocytosis, improved. Decreased pain in the left lower leg. Surgeon found abscess in the left lower leg, lateral and medial and communicating with the posterior one. Incision and drainage was done. She feels better, but getting antibiotics and wound care. Mild drainage from the surgical site. Will complete 14 days of antibiotics from the date of the last surgery. Will continue treatment in the TCU. Discussion done with the son at the bedside. Repeat labs. We will follow up. Prema Strong MD [facility]
[2018-01-20] MEDS: Vancomycin 1gm in NS 250ml 1 GM/250 ML BAG IVPB SCH ×2 (05:40→17:24)
[2018-01-20] MEDS: Cefepime 1gm in NS 100ml 1 GM/100 ML BAG IVPB SCH ×2 (05:41→17:29)
[2018-01-20] MEDS: Enoxaparin 40 mg Syringe SC SCH (05:41)
[2018-01-20 07:27] LABS: HEMOGLOBIN 10.4 g/dL (12.0-16.0); MEAN CELL VOLUME 78.8 fl (80.0-105.0); MEAN CORPUSCULAR HEMOGLOBIN 25.3 pg (25.0-35.0); MEAN CORPUSCULAR HGB CONC 32.1 g/dl (31.0-37.0); MEAN PLATELET VOLUME 10.1 fl (7.0-11.0); RBC 4.11 10^6/uL (3.5-6.1); RED CELL DISTRIBUTION WIDTH 15.4 % (11.5-14.5); WHITE BLOOD COUNT 9.6 10^3/ul (4.5-11.0)
[2018-01-20 08:38] LABS: BLOOD UREA NITROGEN 10 mg/dL (7-21); CALCIUM 8.2 mg/dL (8.4-10.5); GFR AFRICAN-AMERICAN > 60; GFR NON-AFRICAN AMERICAN > 60
[2018-01-20] MEDS: Mupirocin 2% Ointment 15 GM TUBE TOP SCH ×2 (09:49→17:23)
[2018-01-20] MEDS: Collagenase 250 Units/gm Ointment(30 gm) TOP SCH (09:52)
[2018-01-20] MEDS: methIMAzole 5 MG TAB PO SCH (09:52)
--- NOTE | 2018-01-20 10:55 | CP.PCM.PN ---
Subjective - Date & Time of Evaluation Date of Evaluation: 01/20/18 Time of Evaluation: 06:00 - Subjective Subjective: Patient seen and evaluated bedside. No acute issues overnight. Patient states she is doing well, pain is improving. Denies nay fever, chills, nausea, vomiting , abdominal pain, or any other complains at this time. Objective - Vital Signs/Intake and Output Vital Signs (last 24 hours): Temp Pulse Resp BP Pulse Ox 98.4 F 74 16 102/56 L 94 L 01/19/18 16:20 01/19/18 21:50 01/19/18 16:20 01/20/18 09:57 01/19/18 10:00 - Medications Medications: Current Medications Aspirin (Aspirin Chewable) 81 mg PO 0800 [facility] PRN Reason: Protocol Last Admin: 01/20/18 08:21 Dose: 81 mg Collagenase (Santyl) 0 gm TOP DAILY [facility] Last Admin: 01/20/18 09:52 Dose: 1 appl Diphenhydramine HCl (Benadryl) 25 mg PO HS PRN; Protocol PRN Reason: Insomnia Docusate Sodium (Colace) 100 mg PO DAILY [facility] PRN Reason: Protocol Last Admin: 01/20/18 09:50 Dose: 100 mg Enoxaparin Sodium (Lovenox) 40 mg SC 0600 [facility] PRN Reason: Protocol Last Admin: 01/20/18 05:41 Dose: 40 mg Ferrous Sulfate (Feosol) 324 mg PO TID [facility] PRN Reason: Protocol Last Admin: 01/20/18 09:50 Dose: 324 mg Furosemide (Lasix) 40 mg PO DAILY [facility] PRN Reason: Protocol Last Admin: 01/20/18 09:51 Dose: 40 mg Cefepime HCl (Maxipime 1gm) 1 gm in 100 mls @ 200 mls/hr IVPB 0600,1800 [facility] PRN Reason: Protocol Last Admin: 01/20/18 05:41 Dose: 200 mls/hr Vancomycin HCl (Vancomycin 1gm) 1 gm in 250 mls @ 250 mls/hr IVPB 0600,1800 [facility] PRN Reason: Protocol Last Admin: 01/20/18 05:40 Dose: 250 mls/hr Ibuprofen (Motrin Tab) 400 mg PO Q6H PRN; Protocol PRN Reason: Fever >100.4 F Lactulose (Enulose) 10 gm PO DAILY PRN PRN Reason: Constipation Lisinopril (Zestril) 20 mg PO DAILY [facility] PRN Reason: Protocol Last Admin: 01/20/18 09:57 Dose: Not Given Methimazole (Tapazole) 5 mg PO MWF [facility] PRN Reason: Protocol Last Admin: 01/20/18 09:52 Dose: 5 mg Metoprolol Tartrate (Lopressor) 50 mg PO HS [facility] PRN Reason: Protocol Last Admin: 01/19/18 21:50 Dose: 50 mg Morphine Sulfate (Morphine) 4 mg IVP Q4H PRN; Protocol PRN Reason: Pain, severe (8-10) Mupirocin (Bactroban Ointment) 0 gm TOP BID [facility] PRN Reason: Protocol Last Admin: 01/20/18 09:49 Dose: 1 applic Ondansetron HCl (Zofran Inj) 4 mg IVP Q6H PRN; Protocol PRN Reason: Nausea/Vomiting Tramadol HCl (Ultram) 50 mg PO Q4H PRN; Protocol PRN Reason: Pain, moderate (4-7) Last Admin: 01/20/18 09:54 Dose: 50 mg - Labs Labs: 01/20/18 07:00 01/20/18 08:00 - Constitutional Appears: Well, Non-toxic, No Acute Distress - Head Exam Head Exam: ATRAUMATIC, NORMAL INSPECTION, NORMOCEPHALIC - Eye Exam Eye Exam: Normal appearance - ENT Exam ENT Exam: Mucous Membranes Moist - Respiratory Exam Respiratory Exam: Clear to Ausculation Bilateral, NORMAL BREATHING PATTERN - Cardiovascular Exam Cardiovascular Exam: REGULAR RHYTHM - GI/Abdominal Exam GI & Abdominal Exam: Soft. absent: Tenderness - Extremities Exam Extremities Exam: Tenderness. absent: Pedal Edema Additional comments: Bilateral lower legs with chronic skin changes and superficial venous stasis ulcers. Left lower leg with improving erythema and edema surrounding medial and lateral wounds/incision sites. [place] drains removed. Dressings with santyl. Tenderness improving. Both areas tender to palpation but less than previous. Mild amount of sanguinous/purulent drainage from both wounds - Neurological Exam Neurological Exam: Alert, Awake, Oriented x3 - Skin Skin Exam: Warm Additional comments: please see extremity exam Assessment and Plan - Assessment and Plan (Free Text) Plan: Continue to trend CBC Continue to trend vitals and monitor for fevers Continue to follow up ID recs, currently recommending 14 days of antibiotics after surgery, 8 more days Continue to encourage PT involvement Dressing changes with santyl Will continue to monitor lower leg for any changes Recommend FELI's to ensure appropriate arterial flow to the lower extremities Discussed with Dr. Zhu, further recs per Dr. Marko Vu PGY2
--- NOTE | 2018-01-20 16:18 | CP.PCM.PN ---
Subjective - Date & Time of Evaluation Date of Evaluation: 01/20/18 Time of Evaluation: 15:00 - Subjective Subjective: Infectious Disease Follow Up: January 20, 2018 67 year old female with PMH of hypertension and chronic venous insufficiency presenting to the ER for 6 day history of worsening left leg pain and swelling. Patient has history of chronic insufficiency in both lower legs and has been seeing Dr. Romario DPM for wound care. Patient saw her sql report analyst, Dr. Partida, on Thursday and ultrasound of her legs was negative at that time. Today , patient states pain and swelling in left leg was worsening. She denies recent infections and trauma to her legs. She denies CP, SOB, fevers, abdominal pain, nausea, vomiting, chills, recent sickness, sick contacts at home, and recent travel. The patient apparently also had a DVT to left lower extremity in the past treated with surgical venous laserectomy. Very slight improvement to the superinfection of the left leg pain. Still complains of pain to the left lower leg. MRI and CT did not show discrete abscess formation. Taken to OR yesterday and two abscesses (lateral and medial lower leg) were found with communication between the abscesses posteriorly. Debridement performed. Patient feeling better now but still complaining of left leg pain although decreasing. Mild drainage. On the whole the patient is feeling better. Transferred to TCU for antibiotics and rehab of the leg. Objective - Vital Signs/Intake and Output Vital Signs (last 24 hours): Temp Pulse Resp BP Pulse Ox 97.2 F L 52 L 16 102/56 L 100 01/20/18 06:00 01/20/18 06:00 01/20/18 06:00 01/20/18 09:57 01/20/18 06:00 - Medications Medications: Current Medications Aspirin (Aspirin Chewable) 81 mg PO 0800 [facility] PRN Reason: Protocol Last Admin: 01/20/18 08:21 Dose: 81 mg Collagenase (Santyl) 0 gm TOP DAILY [facility] Last Admin: 01/20/18 09:52 Dose: 1 appl Diphenhydramine HCl (Benadryl) 25 mg PO HS PRN; Protocol PRN Reason: Insomnia Docusate Sodium (Colace) 100 mg PO DAILY [facility] PRN Reason: Protocol Last Admin: 01/20/18 09:50 Dose: 100 mg Enoxaparin Sodium (Lovenox) 40 mg SC 0600 [facility] PRN Reason: Protocol Last Admin: 01/20/18 05:41 Dose: 40 mg Ferrous Sulfate (Feosol) 324 mg PO TID [facility] PRN Reason: Protocol Last Admin: 01/20/18 13:25 Dose: 324 mg Furosemide (Lasix) 40 mg PO DAILY [facility] PRN Reason: Protocol Last Admin: 01/20/18 09:51 Dose: 40 mg Cefepime HCl (Maxipime 1gm) 1 gm in 100 mls @ 200 mls/hr IVPB 0600,1800 [facility] PRN Reason: Protocol Last Admin: 01/20/18 05:41 Dose: 200 mls/hr Vancomycin HCl (Vancomycin 1gm) 1 gm in 250 mls @ 250 mls/hr IVPB 0600,1800 [facility] PRN Reason: Protocol Last Admin: 01/20/18 05:40 Dose: 250 mls/hr Ibuprofen (Motrin Tab) 400 mg PO Q6H PRN; Protocol PRN Reason: Fever >100.4 F Lactulose (Enulose) 10 gm PO DAILY PRN PRN Reason: Constipation Lisinopril (Zestril) 20 mg PO DAILY [facility] PRN Reason: Protocol Last Admin: 01/20/18 09:57 Dose: Not Given Methimazole (Tapazole) 5 mg PO MWF [facility] PRN Reason: Protocol Last Admin: 01/20/18 09:52 Dose: 5 mg Metoprolol Tartrate (Lopressor) 50 mg PO HS [facility] PRN Reason: Protocol Last Admin: 01/19/18 21:50 Dose: 50 mg Mupirocin (Bactroban Ointment) 0 gm TOP BID [facility] PRN Reason: Protocol Last Admin: 01/20/18 09:49 Dose: 1 applic Ondansetron HCl (Zofran Inj) 4 mg IVP Q6H PRN; Protocol PRN Reason: Nausea/Vomiting Tramadol HCl (Ultram) 50 mg PO Q4H PRN; Protocol PRN Reason: Pain, moderate (4-7) Last Admin: 01/20/18 09:54 Dose: 50 mg - Labs Labs: 01/20/18 07:00 01/20/18 08:00 - Constitutional Appears: Non-toxic, No Acute Distress, Chronically Ill - Head Exam Head Exam: ATRAUMATIC, NORMOCEPHALIC - Eye Exam Eye Exam: EOMI, PERRL Pupil Exam: NORMAL ACCOMODATION, PERRL - ENT Exam ENT Exam: Mucous Membranes Moist, Normal External Ear Exam, TM's Normal Bilaterally - Neck Exam Neck Exam: Full ROM, Normal Inspection - Respiratory Exam Respiratory Exam: Clear to Ausculation Bilateral, NORMAL BREATHING PATTERN. absent: Rales, Rhonchi, Wheezes - Cardiovascular Exam Cardiovascular Exam: REGULAR RHYTHM, RRR, +S1, +S2 - GI/Abdominal Exam GI & Abdominal Exam: Soft, Normal Bowel Sounds. absent: Distended, Tenderness - Extremities Exam Extremities Exam: Full ROM, Joint Swelling, Pedal Edema Additional comments: Initially, the lower left leg was tender, swollen, erythematous, and edematous with ulcerations present. pulse difficult to palpate in left leg due to swelling. pulse is +2 in right leg. Sensation is diminished in left leg compared to right. Taken to OR for I&D and debridement finding two abscesses in the lateral and medial lower left leg with posterior communications. Left leg has decreased swelling. Decreasing pain. Slow overall improvement. - Neurological Exam Neurological Exam: Alert, CN II-XII Intact, Oriented x3 - Psychiatric Exam Psychiatric exam: Normal Affect, Normal Mood - Skin Additional comments: On admission, the lower left leg is tender, swollen, erythematous, and edematous with ulcerations present. pulse difficult to palpate in left leg due to swelling. pulse is +2 in right leg. Sensation is diminished in left leg compared to right. S/P I&D and debridement of the left lower leg. Overall, swelling and pain has improved significantly. Assessment and Plan - Assessment and Plan (Free Text) Assessment: 67 yo female with PVD of the lower extremities and history of HTN presenting with erythema, edema, pain, and tenderness to the left leg with open ulcerations and swelling of the same leg. Given one dose of Vancomycin IV. Supportive care. Will continue with Vancomycin and Cefepime IV at this time. No history of renal insufficiency. Right ankle tendon repair in April 2017. Outward signs of peripheral vascular disease. Monitor LFTs. Patient revealed further information supporting long standing peripheral vascular disease. S/P I&D 01/14/2018. Leukocytosis improved to 8.5 today. Decreased pain to left lower leg. Surgery found abscesses in the left lower leg in lateral and medial aspects with posterior communication that were I&D and debrided on 01/14/2018. Patient states that she feels much better but still has pain in the left lower leg. Mild drainage from sites. Would try to complete 14 days of antibiotics from the date of the last surgery. Transferred to TCU. She will be receiving 8 days of antibiotics here with rehab. Thank you for allowing me to participate in the care of the patient, we will follow with you.
[2018-01-21] MEDS: Vancomycin 1gm in NS 250ml 1 GM/250 ML BAG IVPB SCH ×2 (05:11→17:53)
[2018-01-21] MEDS: Cefepime 1gm in NS 100ml 1 GM/100 ML BAG IVPB SCH ×2 (05:11→17:02)
[2018-01-21] MEDS: Enoxaparin 40 mg Syringe SC SCH (05:11)
--- NOTE | 2018-01-21 08:15 | CP.PCM.PN ---
Subjective - Date & Time of Evaluation Date of Evaluation: 01/21/18 Time of Evaluation: 06:00 - Subjective Subjective: Patient seen and evaluated bedside. No acute issues overnight. Patient states her pain in the leg has improved from yesterday. Denies any fever or chills, or any other complaints at this time. Objective - Vital Signs/Intake and Output Vital Signs (last 24 hours): Temp Pulse Resp BP Pulse Ox 97.2 F L 71 16 120/54 L 100 01/20/18 06:00 01/20/18 21:35 01/20/18 06:00 01/20/18 21:35 01/20/18 06:00 Intake and Output: 01/21/18 01/21/18 06:59 18:59 Output Total 300 Balance -300 - Medications Medications: Current Medications Aspirin (Aspirin Chewable) 81 mg PO 0800 [facility] PRN Reason: Protocol Last Admin: 01/20/18 08:21 Dose: 81 mg Collagenase (Santyl) 0 gm TOP DAILY [facility] Last Admin: 01/20/18 09:52 Dose: 1 appl Diphenhydramine HCl (Benadryl) 25 mg PO HS PRN; Protocol PRN Reason: Insomnia Docusate Sodium (Colace) 100 mg PO DAILY [facility] PRN Reason: Protocol Last Admin: 01/20/18 09:50 Dose: 100 mg Enoxaparin Sodium (Lovenox) 40 mg SC 0600 [facility] PRN Reason: Protocol Last Admin: 01/21/18 05:11 Dose: 40 mg Ferrous Sulfate (Feosol) 324 mg PO TID [facility] PRN Reason: Protocol Last Admin: 01/20/18 17:23 Dose: 324 mg Furosemide (Lasix) 40 mg PO DAILY [facility] PRN Reason: Protocol Last Admin: 01/20/18 09:51 Dose: 40 mg Cefepime HCl (Maxipime 1gm) 1 gm in 100 mls @ 200 mls/hr IVPB 0600,1800 [facility] PRN Reason: Protocol Last Admin: 01/21/18 05:11 Dose: 200 mls/hr Vancomycin HCl (Vancomycin 1gm) 1 gm in 250 mls @ 250 mls/hr IVPB 0600,1800 [facility] PRN Reason: Protocol Last Admin: 01/21/18 05:11 Dose: 250 mls/hr Ibuprofen (Motrin Tab) 400 mg PO Q6H PRN; Protocol PRN Reason: Fever >100.4 F Lactulose (Enulose) 10 gm PO DAILY PRN PRN Reason: Constipation Lisinopril (Zestril) 20 mg PO DAILY [facility] PRN Reason: Protocol Last Admin: 01/20/18 09:57 Dose: Not Given Methimazole (Tapazole) 5 mg PO MWF [facility] PRN Reason: Protocol Last Admin: 01/20/18 09:52 Dose: 5 mg Metoprolol Tartrate (Lopressor) 50 mg PO HS [facility] PRN Reason: Protocol Last Admin: 01/20/18 21:35 Dose: Not Given Mupirocin (Bactroban Ointment) 0 gm TOP BID [facility] PRN Reason: Protocol Last Admin: 01/20/18 17:23 Dose: 1 applic Ondansetron HCl (Zofran Inj) 4 mg IVP Q6H PRN; Protocol PRN Reason: Nausea/Vomiting Tramadol HCl (Ultram) 50 mg PO Q4H PRN; Protocol PRN Reason: Pain, moderate (4-7) Last Admin: 01/21/18 05:16 Dose: 50 mg - Labs Labs: 01/20/18 07:00 01/20/18 08:00 - Constitutional Appears: Well, Non-toxic, No Acute Distress - Head Exam Head Exam: ATRAUMATIC, NORMAL INSPECTION, NORMOCEPHALIC - Eye Exam Eye Exam: Normal appearance - ENT Exam ENT Exam: Mucous Membranes Moist - Respiratory Exam Respiratory Exam: Clear to Ausculation Bilateral, NORMAL BREATHING PATTERN - Cardiovascular Exam Cardiovascular Exam: REGULAR RHYTHM, +S1, +S2 - GI/Abdominal Exam GI & Abdominal Exam: Soft. absent: Tenderness - Extremities Exam Extremities Exam: Tenderness. absent: Pedal Edema Additional comments: Bilateral lower legs with chronic skin changes and superficial venous stasis ulcers. Left lower leg with improving erythema and edema surrounding medial and lateral wounds/incision sites. [place] drains removed. Dressings with santyl. Tenderness improving. minimal amount of sanguinous/purulent drainage from both wounds - Neurological Exam Neurological Exam: Alert, Awake, Oriented x3 - Skin Additional comments: please see extremity exam Assessment and Plan - Assessment and Plan (Free Text) Assessment: 67F with chronic venous stasis and left lower leg abscesses s/p incision and drainage of abscesses and debridement of necrotic tissue, now in TCU Plan: -Continue to trend CBC -Continue to trend vitals and monitor for fevers -Continue to follow up ID recs, currently recommending 14 days of antibiotics after surgery, 7 more days -Continue to encourage PT involvement -Dressing changes with santyl -Will continue to monitor lower leg for any changes -Recommend FELI's to ensure appropriate arterial flow to the lower extremities -Discussed with Dr. Zhu, -further recs per Dr. Marko Vu PGY2
[2018-01-21] MEDS: Mupirocin 2% Ointment 15 GM TUBE TOP SCH (09:22)
[2018-01-21] MEDS: Collagenase 250 Units/gm Ointment(30 gm) TOP SCH (09:29)
--- NOTE | 2018-01-21 19:42 | CP.PCM.PN ---
Subjective - Date & Time of Evaluation Date of Evaluation: 01/21/18 Time of Evaluation: 19:00 - Subjective Subjective: Infectious Disease Follow Up: January 21, 2018 67 year old female with PMH of hypertension and chronic venous insufficiency presenting to the ER for 6 day history of worsening left leg pain and swelling. Patient has history of chronic insufficiency in both lower legs and has been seeing Dr. Romario DPM for wound care. Patient saw her second rigger, Dr. Partida, on Thursday and ultrasound of her legs was negative at that time. Today , patient states pain and swelling in left leg was worsening. She denies recent infections and trauma to her legs. She denies CP, SOB, fevers, abdominal pain, nausea, vomiting, chills, recent sickness, sick contacts at home, and recent travel. The patient apparently also had a DVT to left lower extremity in the past treated with surgical venous laserectomy. Very slight improvement to the superinfection of the left leg pain. Still complains of pain to the left lower leg. MRI and CT did not show discrete abscess formation. Taken to OR yesterday and two abscesses (lateral and medial lower leg) were found with communication between the abscesses posteriorly. Debridement performed. Patient feeling better now but still complaining of left leg pain although decreasing. Mild drainage. On the whole the patient is feeling better. Transferred to TCU for antibiotics and rehab of the leg. Slowly improving. Objective - Vital Signs/Intake and Output Vital Signs (last 24 hours): Temp Pulse Resp BP Pulse Ox 99.4 F 63 16 133/62 96 01/21/18 16:00 01/21/18 16:00 01/21/18 16:00 01/21/18 16:00 01/21/18 16:00 - Medications Medications: Current Medications Aspirin (Aspirin Chewable) 81 mg PO 0800 [facility] PRN Reason: Protocol Last Admin: 01/21/18 08:43 Dose: 81 mg Collagenase (Santyl) 0 gm TOP DAILY [facility] Last Admin: 01/21/18 09:29 Dose: 1 appl Diphenhydramine HCl (Benadryl) 25 mg PO HS PRN; Protocol PRN Reason: Insomnia Docusate Sodium (Colace) 100 mg PO DAILY [facility] PRN Reason: Protocol Last Admin: 01/21/18 09:25 Dose: 100 mg Enoxaparin Sodium (Lovenox) 40 mg SC 0600 [facility] PRN Reason: Protocol Last Admin: 01/21/18 05:11 Dose: 40 mg Ferrous Sulfate (Feosol) 324 mg PO TID [facility] PRN Reason: Protocol Last Admin: 01/21/18 17:03 Dose: 324 mg Furosemide (Lasix) 40 mg PO DAILY [facility] PRN Reason: Protocol Last Admin: 01/21/18 09:25 Dose: 40 mg Cefepime HCl (Maxipime 1gm) 1 gm in 100 mls @ 200 mls/hr IVPB 0600,1800 [facility] PRN Reason: Protocol Last Admin: 01/21/18 17:02 Dose: 200 mls/hr Vancomycin HCl (Vancomycin 1gm) 1 gm in 250 mls @ 250 mls/hr IVPB 0600,1800 [facility] PRN Reason: Protocol Last Admin: 01/21/18 17:53 Dose: 250 mls/hr Ibuprofen (Motrin Tab) 400 mg PO Q6H PRN; Protocol PRN Reason: Fever >100.4 F Lactulose (Enulose) 10 gm PO DAILY [facility] PRN Reason: Constipation Last Admin: 01/21/18 09:24 Dose: 10 gm Lisinopril (Zestril) 20 mg PO DAILY [facility] PRN Reason: Protocol Last Admin: 01/21/18 09:27 Dose: 20 mg Methimazole (Tapazole) 5 mg PO MWF [facility] PRN Reason: Protocol Last Admin: 01/20/18 09:52 Dose: 5 mg Metoprolol Tartrate (Lopressor) 50 mg PO HS [facility] PRN Reason: Protocol Last Admin: 01/20/18 21:35 Dose: Not Given Ondansetron HCl (Zofran Inj) 4 mg IVP Q6H PRN; Protocol PRN Reason: Nausea/Vomiting Tramadol HCl (Ultram) 50 mg PO Q4H PRN; Protocol PRN Reason: Pain, moderate (4-7) Last Admin: 01/21/18 05:16 Dose: 50 mg - Labs Labs: 01/20/18 07:00 01/20/18 08:00 - Constitutional Appears: Non-toxic, No Acute Distress, Chronically Ill - Head Exam Head Exam: ATRAUMATIC, NORMOCEPHALIC - Eye Exam Eye Exam: EOMI, PERRL Pupil Exam: NORMAL ACCOMODATION, PERRL - ENT Exam ENT Exam: Mucous Membranes Moist, Normal External Ear Exam, TM's Normal Bilaterally - Neck Exam Neck Exam: Full ROM, Normal Inspection - Respiratory Exam Respiratory Exam: Clear to Ausculation Bilateral, NORMAL BREATHING PATTERN. absent: Rales, Rhonchi, Wheezes - Cardiovascular Exam Cardiovascular Exam: REGULAR RHYTHM, RRR, +S1, +S2 - GI/Abdominal Exam GI & Abdominal Exam: Soft, Normal Bowel Sounds. absent: Distended, Tenderness - Extremities Exam Extremities Exam: Full ROM, Joint Swelling, Pedal Edema Additional comments: Initially, the lower left leg was tender, swollen, erythematous, and edematous with ulcerations present. pulse difficult to palpate in left leg due to swelling. pulse is +2 in right leg. Sensation is diminished in left leg compared to right. Taken to OR for I&D and debridement finding two abscesses in the lateral and medial lower left leg with posterior communications. Left leg has decreased swelling. Decreasing pain. Slow overall improvement. - Neurological Exam Neurological Exam: Alert, Awake, CN II-XII Intact, Oriented x3 - Psychiatric Exam Psychiatric exam: Normal Affect, Normal Mood - Skin Additional comments: On admission, the lower left leg is tender, swollen, erythematous, and edematous with ulcerations present. pulse difficult to palpate in left leg due to swelling. pulse is +2 in right leg. Sensation is diminished in left leg compared to right. S/P I&D and debridement of the left lower leg. Overall, swelling and pain has improved significantly. Assessment and Plan - Assessment and Plan (Free Text) Assessment: 67 yo female with PVD of the lower extremities and history of HTN presenting with erythema, edema, pain, and tenderness to the left leg with open ulcerations and swelling of the same leg. Given one dose of Vancomycin IV. Supportive care. Will continue with Vancomycin and Cefepime IV at this time. No history of renal insufficiency. Right ankle tendon repair in April 2017. Outward signs of peripheral vascular disease. Monitor LFTs. Patient revealed further information supporting long standing peripheral vascular disease. S/P I&D 01/14/2018. Leukocytosis improved to 8.5 today. Decreased pain to left lower leg. Surgery found abscesses in the left lower leg in lateral and medial aspects with posterior communication that were I&D and debrided on 01/14/2018. Patient states that she feels much better but still has pain in the left lower leg although decreasing. Mild drainage from sites. Would try to complete 14 days of antibiotics from the date of the last surgery. Transferred to TCU. She will be receiving 8 days of antibiotics here with rehab. Thank you for allowing me to participate in the care of the patient, we will follow with you.
--- NOTE | 2018-01-22 02:04 | PN ---
DATE: 01/20/2018 SUBJECTIVE: Looking comfortable. Son was sitting on the bedside. No acute distressed overnight. The patient states she is doing better. Pain is improving, but very slowly. Getting physical therapy. No nausea, vomiting, diarrhea. No hematuria or hematochezia. No headache. No dizziness. PHYSICAL EXAMINATION: VITAL SIGNS: Temperature 98.4, pulse 74, respiratory rate 16, blood pressure 102/56, pulse oximetry 94. HEENT: Head normocephalic, atraumatic. Eyes PERRLA. Extraocular muscles intact. Conjunctivae clear. Nose patent. Mucous membrane moist. NECK: Supple. No carotid bruit. No JVD or thyromegaly. CHEST: Bilaterally symmetrical. HEART: S1 and S2 positive. LUNGS: Clear to auscultation. ABDOMEN: Soft. Bowel sounds positive. No organomegaly. EXTREMITIES: Has dressing. NEUROLOGICAL: The patient is awake and alert. Follows simple commands. MEDICATIONS: Aspirin patch, Benadryl, Colace, Levoxyl, Feosol, Lasix, cefepime, vancomycin, Motrin, Enulose, Zestril, Tapazole, Zofran, tramadol. LABORATORY DATA: White blood cell is 5.6, hemoglobin 10.4, hematocrit 32.4, glucose 357. Sodium 137, potassium 3.8, BUN 10, creatinine 0.5, glucose 95. ASSESSMENT AND PLAN: Ms. Xenia Hall, 67-year-old lady with anemia, renal insufficiency, has bilateral lower legs with chronic skin changes and superficial venous stasis ulcers, left lower leg with improving erythema and edema surrounding medial and lateral wounds and incisions sites. [place] drain removed. Dressing with fentanyl. Tenderness improving. Both areas tender to palpation, but less than previously. Mild amount of purulent drainage from the both wounds. Continue physical therapy. GI, deep venous thrombosis prophylaxis. Repeat labs. Prema Strong MD MTDD
--- NOTE | 2018-01-22 04:17 | PN ---
DATE: 01/21/2018 SUBJECTIVE: The patient was seen and examined on bedside on 01/21/2018. The patient was sitting on the chair, looking comfortable. No nausea, vomiting, diarrhea. No hematuria or hematochezia. Still having pain in the legs. Getting better. No fever. No chills. No constipation. Sleep was good. PHYSICAL EXAMINATION: VITAL SIGNS: Temperature 97.2, pulse 71, respiratory rate 20, blood pressure 120/54, pulse oximetry 100. HEENT: Head normocephalic, atraumatic. Eyes PERRLA. Extraocular muscles intact. Conjunctivae clear. Nose patent. Mucous membrane moist. NECK: Supple. No carotid bruit. No JVD or thyromegaly. CHEST: Bilaterally symmetrical. HEART: S1 and S2 positive. LUNGS: Clear to auscultation. ABDOMEN: Soft. Bowel sounds positive. No organomegaly. EXTREMITIES: Lower extremities have dressing. NEUROLOGICAL: The patient is awake and alert. Moving all 4 extremities. No focal deficits. Follows simple commands. MEDICATIONS: Benadryl, Colace, Lovenox, Feosol, Lasix, Maxipime, vancomycin, ibuprofen, lactulose, lisinopril, metoprolol, tramadol. LABORATORY DATA: White blood cells 9.6, hemoglobin 10.4, hematocrit 32.4, platelets 352. Sodium 137, potassium 3.8, BUN 10, creatinine 0.6, glucose 95. ASSESSMENT AND PLAN: Ms. Xenia Hall is a 67-year-old female with anemia, her bilateral lower leg with chronic skin changes and superficially venous stasis ulcer, left lower leg with improving erythema and has chronic venous stasis and left lower leg abscess, status post incision and drainage of the abscess with debridement of necrotic tissues. Now, the patient is in Transitional Care Unit, getting physical therapy and wound care. Surgical team is on the case. Continue monitoring labs, monitoring vitals. Changing dressing, physical therapy. Continue monitoring lower leg swelling. Recommended FELI to ensure appropriate arterial flow to the lower extremities. Seen by Dr. Zhu, surgeon. Seen by Dr. Casillas, Infectious Disease. Antibiotics as per Infectious Disease. History of hypertension, erythema, edema. Supportive care. Continue vancomycin and cefepime IV. Monitor renal insufficiency. Right ankle tendon repair in 04/2017, improving. Monitoring liver function tests. Gastrointestinal and deep venous thrombosis prophylaxis. Repeat labs. We will follow up. Prema Strong MD MTDMore
[2018-01-22] MEDS: Vancomycin 1gm in NS 250ml 1 GM/250 ML BAG IVPB SCH ×2 (05:35→19:56)
[2018-01-22] MEDS: Cefepime 1gm in NS 100ml 1 GM/100 ML BAG IVPB SCH ×2 (05:35→18:35)
[2018-01-22] MEDS: Enoxaparin 40 mg Syringe SC SCH (05:36)
--- NOTE | 2018-01-22 07:50 | CP.PCM.PN ---
Subjective - Date & Time of Evaluation Date of Evaluation: 01/22/18 Time of Evaluation: 06:00 - Subjective Subjective: Patient seen and examined bedside. No acute issues overnight. Patient says the tenderness in her leg has improved. She denies fever, chills, any other complaints at this time. Objective - Vital Signs/Intake and Output Vital Signs (last 24 hours): Temp Pulse Resp BP Pulse Ox 99.4 F 96 H 16 133/62 96 01/21/18 16:00 01/21/18 21:22 01/21/18 16:00 01/21/18 16:00 01/21/18 16:00 Intake and Output: 01/22/18 01/22/18 06:59 18:59 Intake Total 260 Output Total 450 Balance -190 - Medications Medications: Current Medications Aspirin (Aspirin Chewable) 81 mg PO 0800 [facility] PRN Reason: Protocol Last Admin: 01/21/18 08:43 Dose: 81 mg Collagenase (Santyl) 0 gm TOP DAILY [facility] Last Admin: 01/21/18 09:29 Dose: 1 appl Diphenhydramine HCl (Benadryl) 25 mg PO HS PRN; Protocol PRN Reason: Insomnia Docusate Sodium (Colace) 100 mg PO DAILY [facility] PRN Reason: Protocol Last Admin: 01/21/18 09:25 Dose: 100 mg Enoxaparin Sodium (Lovenox) 40 mg SC 0600 [facility] PRN Reason: Protocol Last Admin: 01/22/18 05:36 Dose: 40 mg Ferrous Sulfate (Feosol) 324 mg PO TID [facility] PRN Reason: Protocol Last Admin: 01/21/18 17:03 Dose: 324 mg Furosemide (Lasix) 40 mg PO DAILY [facility] PRN Reason: Protocol Last Admin: 01/21/18 09:25 Dose: 40 mg Cefepime HCl (Maxipime 1gm) 1 gm in 100 mls @ 200 mls/hr IVPB 0600,1800 [facility] PRN Reason: Protocol Last Admin: 01/22/18 05:35 Dose: 200 mls/hr Vancomycin HCl (Vancomycin 1gm) 1 gm in 250 mls @ 250 mls/hr IVPB 0600,1800 [facility] PRN Reason: Protocol Last Admin: 01/22/18 05:35 Dose: 250 mls/hr Ibuprofen (Motrin Tab) 400 mg PO Q6H PRN; Protocol PRN Reason: Fever >100.4 F Lactulose (Enulose) 10 gm PO DAILY [facility] PRN Reason: Constipation Last Admin: 01/21/18 09:24 Dose: 10 gm Lisinopril (Zestril) 20 mg PO DAILY [facility] PRN Reason: Protocol Last Admin: 01/21/18 09:27 Dose: 20 mg Methimazole (Tapazole) 5 mg PO MWF [facility] PRN Reason: Protocol Last Admin: 01/20/18 09:52 Dose: 5 mg Metoprolol Tartrate (Lopressor) 50 mg PO HS [facility] PRN Reason: Protocol Last Admin: 01/21/18 21:22 Dose: 50 mg Ondansetron HCl (Zofran Inj) 4 mg IVP Q6H PRN; Protocol PRN Reason: Nausea/Vomiting Tramadol HCl (Ultram) 50 mg PO Q4H PRN; Protocol PRN Reason: Pain, moderate (4-7) Last Admin: 01/21/18 05:16 Dose: 50 mg - Labs Labs: 01/20/18 07:00 01/20/18 08:00 - Constitutional Appears: Well, Non-toxic, No Acute Distress - Head Exam Head Exam: ATRAUMATIC, NORMAL INSPECTION, NORMOCEPHALIC - Eye Exam Eye Exam: EOMI, Normal appearance - ENT Exam ENT Exam: Mucous Membranes Moist - Respiratory Exam Respiratory Exam: Clear to Ausculation Bilateral, NORMAL BREATHING PATTERN - Cardiovascular Exam Cardiovascular Exam: REGULAR RHYTHM, +S1, +S2 - GI/Abdominal Exam GI & Abdominal Exam: Soft. absent: Tenderness - Extremities Exam Extremities Exam: Tenderness Additional comments: Bilateral lower legs with chronic skin changes and superficial venous stasis ulcers. Left lower leg with improving erythema and edema surrounding medial and lateral wounds/incision sites. [place] drains removed. Dressings with santyl. Tenderness continues to improve. minimal amount of sanguinous/purulent drainage from both wounds - Neurological Exam Neurological Exam: Alert, Awake, Oriented x3 - Skin Skin Exam: Warm Additional comments: see extremity exam Assessment and Plan - Assessment and Plan (Free Text) Assessment: 67F with chronic venous stasis and left lower leg abscesses s/p incision and drainage of abscesses and debridement of necrotic tissue. Plan: -no surgical intervention at this time, patient cleared from surgical point of view -continue abx -continue santyl -hola bandage -Discussed with Dr. Zhu, -further recs per Dr. Marko Vu PGY2
[2018-01-22] MEDS: methIMAzole 5 MG TAB PO SCH (10:57)
[2018-01-22] MEDS: Collagenase 250 Units/gm Ointment(30 gm) TOP SCH (14:40)
--- NOTE | 2018-01-22 15:12 | CP.PCM.PN ---
Subjective - Date & Time of Evaluation Date of Evaluation: 01/22/18 Time of Evaluation: 15:00 - Subjective Subjective: Infectious Disease Follow Up: January 22, 2018 67 year old female with PMH of hypertension and chronic venous insufficiency presenting to the ER for 6 day history of worsening left leg pain and swelling. Patient has history of chronic insufficiency in both lower legs and has been seeing Dr. Romario DPM for wound care. Patient saw her 8th grade teacher, Dr. Partida, on Thursday and ultrasound of her legs was negative at that time. Today , patient states pain and swelling in left leg was worsening. She denies recent infections and trauma to her legs. She denies CP, SOB, fevers, abdominal pain, nausea, vomiting, chills, recent sickness, sick contacts at home, and recent travel. The patient apparently also had a DVT to left lower extremity in the past treated with surgical venous laserectomy. Very slight improvement to the superinfection of the left leg pain. Still complains of pain to the left lower leg. MRI and CT did not show discrete abscess formation. Taken to OR yesterday and two abscesses (lateral and medial lower leg) were found with communication between the abscesses posteriorly. Debridement performed. Patient feeling better now but still complaining of left leg pain although decreasing. Mild drainage. On the whole the patient is feeling better. Transferred to TCU for antibiotics and rehab of the leg. Slowly improving. Patient feeling better. Objective - Vital Signs/Intake and Output Vital Signs (last 24 hours): Temp Pulse Resp BP Pulse Ox 99.4 F 96 H 16 133/65 96 01/21/18 16:00 01/21/18 21:22 01/21/18 16:00 01/22/18 10:56 01/21/18 16:00 Intake and Output: 01/22/18 01/22/18 06:59 18:59 Intake Total 260 Output Total 450 Balance -190 - Medications Medications: Current Medications Aspirin (Aspirin Chewable) 81 mg PO 0800 [facility] PRN Reason: Protocol Last Admin: 01/22/18 08:27 Dose: 81 mg Collagenase (Santyl) 0 gm TOP DAILY [facility] Last Admin: 01/22/18 14:40 Dose: 1 appl Diphenhydramine HCl (Benadryl) 25 mg PO HS PRN; Protocol PRN Reason: Insomnia Docusate Sodium (Colace) 100 mg PO DAILY [facility] PRN Reason: Protocol Last Admin: 01/22/18 10:55 Dose: 100 mg Enoxaparin Sodium (Lovenox) 40 mg SC 0600 [facility] PRN Reason: Protocol Last Admin: 01/22/18 05:36 Dose: 40 mg Ferrous Sulfate (Feosol) 324 mg PO TID [facility] PRN Reason: Protocol Last Admin: 01/22/18 14:39 Dose: 324 mg Furosemide (Lasix) 40 mg PO DAILY [facility] PRN Reason: Protocol Last Admin: 01/22/18 10:56 Dose: 40 mg Cefepime HCl (Maxipime 1gm) 1 gm in 100 mls @ 200 mls/hr IVPB 0600,1800 [facility] PRN Reason: Protocol Last Admin: 01/22/18 05:35 Dose: 200 mls/hr Vancomycin HCl (Vancomycin 1gm) 1 gm in 250 mls @ 250 mls/hr IVPB 0600,1800 [facility] PRN Reason: Protocol Last Admin: 01/22/18 05:35 Dose: 250 mls/hr Ibuprofen (Motrin Tab) 400 mg PO Q6H PRN; Protocol PRN Reason: Fever >100.4 F Lactulose (Enulose) 10 gm PO DAILY [facility] PRN Reason: Constipation Last Admin: 01/21/18 09:24 Dose: 10 gm Lisinopril (Zestril) 20 mg PO DAILY [facility] PRN Reason: Protocol Last Admin: 01/22/18 10:57 Dose: 20 mg Methimazole (Tapazole) 5 mg PO MWF [facility] PRN Reason: Protocol Last Admin: 01/22/18 10:57 Dose: 5 mg Metoprolol Tartrate (Lopressor) 50 mg PO HS [facility] PRN Reason: Protocol Last Admin: 01/21/18 21:22 Dose: 50 mg Ondansetron HCl (Zofran Inj) 4 mg IVP Q6H PRN; Protocol PRN Reason: Nausea/Vomiting Tramadol HCl (Ultram) 50 mg PO Q4H PRN; Protocol PRN Reason: Pain, moderate (4-7) Last Admin: 01/21/18 05:16 Dose: 50 mg - Labs Labs: 01/20/18 07:00 01/20/18 08:00 - Constitutional Appears: Non-toxic, No Acute Distress, Chronically Ill - Head Exam Head Exam: ATRAUMATIC, NORMOCEPHALIC - Eye Exam Eye Exam: EOMI, PERRL Pupil Exam: NORMAL ACCOMODATION, PERRL - ENT Exam ENT Exam: Mucous Membranes Moist, Normal External Ear Exam, TM's Normal Bilaterally - Neck Exam Neck Exam: Full ROM, Normal Inspection - Respiratory Exam Respiratory Exam: Clear to Ausculation Bilateral, NORMAL BREATHING PATTERN. absent: Rales, Rhonchi, Wheezes - Cardiovascular Exam Cardiovascular Exam: REGULAR RHYTHM, RRR, +S1, +S2 - GI/Abdominal Exam GI & Abdominal Exam: Soft, Tenderness, Hyperactive Bowel Sounds - Extremities Exam Extremities Exam: Full ROM, Joint Swelling, Pedal Edema Additional comments: On last hospitaliation, the lower left leg was tender, swollen, erythematous, and edematous with ulcerations present. pulse difficult to palpate in left leg due to swelling. pulse is +2 in right leg. Sensation is diminished in left leg compared to right. Taken to OR for I&D and debridement finding two abscesses in the lateral and medial lower left leg with posterior communications. Left leg has decreased swelling. Decreasing pain. Slow overall improvement. Today the patient had no complaints, supportive care. Thank you for allowing me to participate in the care of this patient. - Neurological Exam Neurological Exam: Alert, Awake, CN II-XII Intact, Oriented x3 - Psychiatric Exam Psychiatric exam: Normal Affect, Normal Mood - Skin Additional comments: On admission, the lower left leg is swollen, erythematous, and edematous with ulcerations present. pulse difficult to palpate in left leg due to swelling. pulse is +2 in right leg. Sensation is diminished in left leg compared to right. S/P I&D and debridement of the left lower leg. Overall, swelling and pain has improved significantly. Assessment and Plan - Assessment and Plan (Free Text) Assessment: 67 yo female with PVD of the lower extremities and history of HTN presenting with erythema, edema, pain, and tenderness to the left leg with open ulcerations and swelling of the same leg. Given one dose of Vancomycin IV. Supportive care. Will continue with Vancomycin and Cefepime IV at this time. No history of renal insufficiency. Right ankle tendon repair in April 2017. Outward signs of peripheral vascular disease. Monitor LFTs. Patient revealed further information supporting long standing peripheral vascular disease. S/P I&D 01/14/2018. Leukocytosis improved to 8.5 today. Decreased pain to left lower leg. Surgery found abscesses in the left lower leg in lateral and medial aspects with posterior communication that were I&D and debrided on 01/14/2018. Patient states that she feels much better but still has pain in the left lower leg although decreasing. Mild drainage from sites. Would try to complete 14 days of antibiotics from the date of the last surgery. Transferred to TCU. She will be receiving 8 days of antibiotics here with rehab. Patient returning to hospital today for left lower leg cellulitis. Thank you for allowing me to participate in the care of the patient, we will follow with you.
[2018-01-22 17:19] VITALS: RESP 18; TEMP 100; O2SAT 93
[2018-01-22 21:27] VITALS: PULSE 67
--- NOTE | 2018-01-23 03:06 | PN ---
DATE: 01/22/2018 SUBJECTIVE: Patient is a 67-year-old female, looking comfortable. Diarrhea is better. No issues overnight. Tenderness in her right leg has improved. Pain improved, but still she has pain and has fever in the evening. No headache, no dizziness. No hematuria or hematochezia. PHYSICAL EXAMINATION: VITAL SIGNS: Temperature 97.3, T-max 100, pulse 67, blood pressure 130/60, respiratory rate 18. HEENT: Head normocephalic, atraumatic. Eyes PERRLA. Extraocular muscles intact. Conjunctivae clear. Nose patent. NECK: Supple. No carotid bruit. No JVD or thyromegaly. CHEST: Bilaterally symmetrical. HEART: S1 and S2 positive. LUNGS: Clear to auscultation. ABDOMEN: Soft. Bowel sounds positive. No organomegaly. EXTREMITIES: Upper extremities, no edema, no cyanosis. Lower extremity has dressing. NEUROLOGICAL: Awake and alert. Moving all four extremities. No focal deficits. MEDICATIONS: Aspirin, Benadryl, Colace, Enulose, Feosol, Lasix, Lopressor, Lovenox, Maxipime, ibuprofen, Santyl, Tapazole, tramadol, vancomycin, Zestril, Zofran. LABORATORY DATA: White blood cells 9.6, hemoglobin 10.4, hematocrit 32.4, platelets 357. Sodium 137, potassium 3.8, BUN 10, creatinine 0.6, calcium 8.2. ASSESSMENT AND PLAN: Ms. Xenia Hall, 67-year-old female, with anemia, hypocalcemia, chronic venous disease, left lower leg abscess - status post incision and drainage of abscess, and debridement of necrotic tissues, getting antibiotics. No surgical intervention at this time as per Surgery. Continue antibiotics. Continue fentanyl patch. SVEN bandage. Surgery was done by Dr. Zhu. His team has followup with the patient. Today patient has fever, low-grade. Put re-consult with Dr. Casillas. We will repeat labs tomorrow. We will do little bit septic workup. History of anemia, renal insufficiency, bilateral legs chronic skin changes and superficial venous stasis ulcers. Tenderness and pain improved, but having still little bit fever. Continue physical therapy. Gastrointestinal and deep vein thrombosis prophylaxes. Repeat labs. Continue antibiotics. We will follow up. Prema Strong MD
[2018-01-23] MEDS: Enoxaparin 40 mg Syringe SC SCH (05:20)
[2018-01-23] MEDS: Cefepime 1gm in NS 100ml 1 GM/100 ML BAG IVPB SCH (05:20)
[2018-01-23] MEDS: Vancomycin 1gm in NS 250ml 1 GM/250 ML BAG IVPB SCH (05:20)
[2018-01-23 06:35] LABS: HEMOGLOBIN 10.4 g/dL (12.0-16.0); MEAN CELL VOLUME 77.5 fl (80.0-105.0); MEAN CORPUSCULAR HEMOGLOBIN 25.5 pg (25.0-35.0); MEAN CORPUSCULAR HGB CONC 32.9 g/dl (31.0-37.0); MEAN PLATELET VOLUME 9.6 fl (7.0-11.0); RBC 4.08 10^6/uL (3.5-6.1); RED CELL DISTRIBUTION WIDTH 15.2 % (11.5-14.5); WHITE BLOOD COUNT 5.1 10^3/ul (4.5-11.0)
[2018-01-23 07:10] LABS: BLOOD UREA NITROGEN 11 mg/dL (7-21); CALCIUM 8.5 mg/dL (8.4-10.5); GFR AFRICAN-AMERICAN > 60; GFR NON-AFRICAN AMERICAN > 60
[2018-01-23 09:10] VITALS: BP 121/54
[2018-01-23] MEDS: Collagenase 250 Units/gm Ointment(30 gm) TOP SCH (11:51)
--- NOTE | 2018-01-23 15:33 | CP.PCM.PN ---
Subjective - Date & Time of Evaluation Date of Evaluation: 01/23/18 Time of Evaluation: 14:00 - Subjective Subjective: Infectious Disease Follow Up: January 23, 2018 67 year old female with PMH of hypertension and chronic venous insufficiency presenting to the ER for 6 day history of worsening left leg pain and swelling. Patient has history of chronic insufficiency in both lower legs and has been seeing Dr. Romario DPM for wound care. Patient saw her shift supervisor, Dr. Partida, on Thursday and ultrasound of her legs was negative at that time. Today , patient states pain and swelling in left leg was worsening. She denies recent infections and trauma to her legs. She denies CP, SOB, fevers, abdominal pain, nausea, vomiting, chills, recent sickness, sick contacts at home, and recent travel. The patient apparently also had a DVT to left lower extremity in the past treated with surgical venous laserectomy. Very slight improvement to the superinfection of the left leg pain. Still complains of pain to the left lower leg. MRI and CT did not show discrete abscess formation. Taken to OR yesterday and two abscesses (lateral and medial lower leg) were found with communication between the abscesses posteriorly. Debridement performed. Patient feeling better now but still complaining of left leg pain although decreasing. Mild drainage. On the whole the patient is feeling better. Transferred to TCU for antibiotics and rehab of the leg. Slowly improving. Patient feeling better. Objective - Vital Signs/Intake and Output Vital Signs (last 24 hours): Temp Pulse Resp BP Pulse Ox 100 F H 67 18 121/54 L 93 L 01/22/18 16:00 01/22/18 21:21 01/22/18 16:00 01/23/18 09:08 01/22/18 16:00 Intake and Output: 01/23/18 01/23/18 06:59 18:59 Intake Total 240 Output Total 500 Balance -260 - Labs Labs: 01/23/18 05:30 01/23/18 05:30 - Constitutional Appears: Non-toxic, No Acute Distress, Chronically Ill - Head Exam Head Exam: ATRAUMATIC, NORMOCEPHALIC - Eye Exam Eye Exam: EOMI, PERRL Pupil Exam: NORMAL ACCOMODATION, PERRL - ENT Exam ENT Exam: Mucous Membranes Moist, Normal External Ear Exam, TM's Normal Bilaterally - Neck Exam Neck Exam: Full ROM, Normal Inspection - Respiratory Exam Respiratory Exam: Clear to Ausculation Bilateral, NORMAL BREATHING PATTERN. absent: Rales, Rhonchi, Wheezes - Cardiovascular Exam Cardiovascular Exam: REGULAR RHYTHM, RRR, +S1, +S2 - GI/Abdominal Exam GI & Abdominal Exam: Soft, Normal Bowel Sounds. absent: Distended, Tenderness - Extremities Exam Extremities Exam: Full ROM, Joint Swelling, Pedal Edema Additional comments: Initially, the lower left leg was tender, swollen, erythematous, and edematous with ulcerations present. pulse difficult to palpate in left leg due to swelling. pulse is +2 in right leg. Sensation is diminished in left leg compared to right. Taken to OR for I&D and debridement finding two abscesses in the lateral and medial lower left leg with posterior communications. Left leg has decreased swelling. Decreasing pain. Slow overall improvement. - Neurological Exam Neurological Exam: Alert, Awake, CN II-XII Intact, Oriented x3 - Psychiatric Exam Psychiatric exam: Normal Affect, Normal Mood - Skin Additional comments: On admission, the lower left leg is swollen, erythematous, and edematous with ulcerations present. pulse difficult to palpate in left leg due to swelling. pulse is +2 in right leg. Sensation is diminished in left leg compared to right. S/P I&D and debridement of the left lower leg. Overall, swelling and pain has improved significantly. Assessment and Plan - Assessment and Plan (Free Text) Assessment: 67 yo female with PVD of the lower extremities and history of HTN presenting with erythema, edema, pain, and tenderness to the left leg with open ulcerations and swelling of the same leg. Given one dose of Vancomycin IV. Supportive care. Will continue with Vancomycin and Cefepime IV at this time. No history of renal insufficiency. Right ankle tendon repair in April 2017. Outward signs of peripheral vascular disease. Monitor LFTs. Patient revealed further information supporting long standing peripheral vascular disease. S/P I&D 01/14/2018. Leukocytosis improved to 8.5 today. Decreased pain to left lower leg. Surgery found abscesses in the left lower leg in lateral and medial aspects with posterior communication that were I&D and debrided on 01/14/2018. Patient states that she feels much better but still has pain in the left lower leg although decreasing. Mild drainage from sites. Would try to complete 14 days of antibiotics from the date of the last surgery. Transferred to TCU. She will be receiving 8 days of antibiotics here with rehab. Can consider use of Keflex 500mg for 7 days more at 500mg TID. Patient returning to hospital today for left lower leg cellulitis. Thank you for allowing me to participate in the care of the patient, we will follow with you.
== END 2018-01-23 15:21 | disposition home health service (06) | DRG 603 ==
LOC: TRCU 18:58
PROVIDERS: ADMIT Internal Medicine; ATTEND Internal Medicine
PROC: 3E03329 Introduction of Other Anti-infective into Peripheral Vein, Percutaneous Approach (ICD-10-PCS; 2018-01-18)
PROC: F07Z9FZ Gait Training/Functional Ambulation Treatment using Assistive, Adaptive, Supportive or Protective Equipment (ICD-10-PCS; principal; 2018-01-20)
PROC: F07Z5FZ Bed Mobility Treatment using Assistive, Adaptive, Supportive or Protective Equipment (ICD-10-PCS; 2018-01-20)
PROC: F07Z8FZ Transfer Training Treatment using Assistive, Adaptive, Supportive or Protective Equipment (ICD-10-PCS; 2018-01-20)
PROC: F07L6YZ Therapeutic Exercise Treatment of Musculoskeletal System - Lower Back / Lower Extremity using Other Equipment (ICD-10-PCS; 2018-01-20)
PROC: F08Z2ZZ Grooming/Personal Hygiene Treatment (ICD-10-PCS; 2018-01-21)
DX: L03.116 Cellulitis of left lower limb (principal); L97.929 Non-pressure chronic ulcer of unspecified part of left lower leg with unspecified severity; L02.416 Cutaneous abscess of left lower limb; R73.03 Prediabetes; I10 Essential (primary) hypertension; M54.30 Sciatica, unspecified side; E05.90 Thyrotoxicosis, unspecified without thyrotoxic crisis or storm; I87.2 Venous insufficiency (chronic) (peripheral); I73.9 Peripheral vascular disease, unspecified; I87.8 Other specified disorders of veins; D64.9 Anemia, unspecified; E83.51 Hypocalcemia; N28.9 Disorder of kidney and ureter, unspecified; K21.9 Gastro-esophageal reflux disease without esophagitis; Z79.2 Long term (current) use of antibiotics; Z86.718 Personal history of other venous thrombosis and embolism; Z87.11 Personal history of peptic ulcer disease

== ENCOUNTER 2018-09-28 18:56 | Emergency (ER) | payer MEDICARE ==
[2018-09-28 19:14] VITALS: RESP 18; TEMP 97.9; O2SAT 100; BMI 34.0
[2018-09-28] MEDS ORDERED: TraMADol/Apap 37.5/325 mg Tab PO STA (19:38)
--- NOTE | 2018-09-28 20:26 | ED PDOC ---
Arrival/HPI - General Chief Complaint: Lower Extremity Problem/Injury Time Seen by Provider: 09/28/18 18:57 Historian: Patient - History of Present Illness Narrative History of Present Illness (Text): 09/28/18 20:21 68 F with PMH of hypertension, hypertension, and chronic venous insufficiency presents with generalized pain to left side s/p mechanical fall. Patient reports while walking she tripped and fell. Patient complains of pain and discomfort to her left great toe, left side of neck, left knee, and left medial ribs area. Patient denies any head trauma or dizziness. Patient denies any fevers, chills, headache, chest pain, shortness of breath, dyspnea on exertion, cough, diaphoresis, abdominal pain, nausea, vomiting, diarrhea, back pain, neck pain, or any other complaint. Time/Duration: Prior to Arrival Symptom Onset: Sudden Symptom Course: Unchanged Activities at Onset: Light Context: Home Past Medical History - Provider Review Nursing Documentation Reviewed: Yes - Infectious Disease Hx of Infectious Diseases: None - Tetanus Immunization Tetanus Immunization: Unknown - Reproductive Menopause: Yes - Cardiac Hx Cardiac Disorders: Yes Hx Hypertension: Yes - Pulmonary Hx Respiratory Disorders: No - Neurological Hx Neurological Disorder: No - HEENT Hx HEENT Disorder: Yes Hx Cataracts: Yes (removed 2004) - Renal Hx Renal Disorder: No - Endocrine/Metabolic Hx Endocrine Disorders: No (denies) - Hematological/Oncological Hx Blood Transfusions: No - Integumentary Hx Dermatological Disorder: Yes Hx Cellulitis: Yes Other/Comment: discoloration to left LLE - Musculoskeletal/Rheumatological Hx Arthritis: Yes (OA) - Gastrointestinal Hx Gastrointestinal Disorders: Yes (constipation,gastritis,gerd,pud) Hx Gastritis: Yes Hx Gastroesophageal Reflux: Yes - Genitourinary/Gynecological Hx Genitourinary Disorders: No Hx Reproductive Disorders: No - Psychiatric Hx Psychophysiologic Disorder: No Hx Anxiety: No Hx Depression: No Hx Substance Use: No - Surgical History Hx Cataract Extraction: Yes - Anesthesia Hx Anesthesia: No Hx Anesthesia Reactions: No Hx Malignant Hyperthermia: No - Suicidal Assessment Feels Threatened In Home Enviroment: No Family/Social History - Physician Review Nursing Documentation Reviewed: Yes Family/Social History: Unknown Family HX Smoking Status: Never Smoked Hx Alcohol Use: No Hx Substance Use: No Hx Substance Use Treatment: No Allergies/Home Meds Allergies/Adverse Reactions: Allergies No Known Allergies Allergy (Verified 01/18/18 21:09) Review of Systems - Physician Review All systems were reviewed & negative as marked: Yes - Review of Systems Musculoskeletal: Neck Pain (left neck pain), Other (pain to left great toe, left knee, and left ribs area) Neurological: absent: Headache, Dizziness Physical Exam Vital Signs Reviewed: Yes Vital Signs Temp Pulse Resp Pulse Ox 09/28/18 19:13 97.9 F 63 18 100 Temperature: Afebrile Pulse: Regular Respiratory Rate: Normal - Systems Exam Head: Present: Atraumatic, Normocephalic Pupils: Present: PERRL Extroacular Muscles: Present: EOMI Conjunctiva: Present: Normal Respiratory/Chest: Present: Other (palpable tenderness to mid lateral axillary area) Cardiovascular: Present: Regular Rate and Rhythm, Normal S1, S2. No: Murmurs Abdomen: No: Tenderness, Distention, Peritoneal Signs Back: No: CVA Tenderness, Paraspinal Tenderness, Other (no dorsla spinal tenderness) Upper Extremity: Present: Normal Inspection. No: Cyanosis, Edema Lower Extremity: Present: Normal ROM, Tenderness (superficial ecchymosis to left anterior knee; slight palpable tenderness to left great toe). No: Swelling Neurological: Present: GCS=15, CN II-XII Intact, Speech Normal Skin: Present: Warm, Dry, Normal Color. No: Rashes Psychiatric: Present: Alert, Oriented x 3, Normal Insight, Normal Concentration Medical Decision Making ED Course and Treatment: 09/28/18 20:27 Impression: 68 F with presents with generalized pain to left side s/p mechanical fall Plan: -- Cervical Spine CT -- Ultracet -- Left great toe X Ray -- Left Patella X Ray -- Left Ribs & Chest X Ray -- Reassess and disposition Prior Visits: Notes and results from previous visits were reviewed. Progress Notes: 09/28/18 21:09 Left great toe xray reviewed by me, shows no acute processing. Left patella xray reviewed by me, shows no acute processing. Left ribs and chest xray reviewed by me, shows no acute processing. - RAD Interpretation Radiology Orders: 09/28/18 19:35 CERVICAL SPINE W/O CONTRAST [CT] Stat 09/28/18 19:36 FOOT LEFT GREAT TOE ROUTINE [RAD] Stat KNEE WITH PATELLA LEFT 3 VIEW [RAD] Stat 09/28/18 19:37 RIBS LEFT & PA CHEST [RAD] Stat - Medication Orders Current Medication Orders: Discontinued Medications Tramadol/Acetaminophen (Ultracet 37.5/325 Mg) 1 tab PO ONCE STA Stop: 09/28/18 19:39 Last Admin: 09/28/18 19:46 Dose: 1 tab MAR Pain Assessment Document 09/28/18 19:46 AD (Rec: 09/28/18 19:47 AD [id number]) Pain Reassessment Is this a pain reassessment? No Presence of Pain Presence of Pain Yes Pain Scale Used Protocol: PSCALES Pain Scale Used Numeric Description Intensity of Pain at present 8 Pain Behavior Facial Grimacing - Scribe Statement The provider has reviewed the documentation as recorded by the Denisse Melgar All medical record entries made by the Denisse were at my direction and personally dictated by me. I have reviewed the chart and agree that the record accurately reflects my personal performance of the history, physical exam, medical decision making, and the department course for this patient. I have also personally directed, reviewed, and agree with the discharge instructions and disposition. Disposition/Present on Arrival - Present on Arrival Any Indicators Present on Arrival: No History of DVT/PE: No History of Uncontrolled Diabetes: No Urinary Catheter: No History of Decub. Ulcer: No History Surgical Site Infection Following: None - Disposition Have Diagnosis and Disposition been Completed?: Yes Diagnosis: Knee contusion, Cervical muscle strain, Toe contusion, Rib contusion Disposition: HOME/ ROUTINE Disposition Time: 22:35 Patient Plan: Discharge Condition: GOOD Discharge Instructions (ExitCare): Muscle Strain (DC), Contusion (DC), Cervical Muscle Strain (DC), Toe Injury (DC), Bruised Rib (DC) Additional Instructions: Rest/no strenuous physical activity/take meds as prescribed/follow up with your doctor this week Prescriptions: traMADol/Acetaminophen [Ultracet 325 MG-37.5 MG] 1 tab PO Q6 PRN #12 tab PRN Reason: Pain Forms: [employer] (Dominican)
[2018-09-28 23:27] VITALS: BP 125/72; PULSE 67
--- NOTE | 2018-09-29 09:05 | CT ---
Date of service: 09/28/2018 PROCEDURE: CT Cervical Spine without contrast HISTORY: neck pain post fall COMPARISON: None available. TECHNIQUE: Axial computed tomography images were obtained of the cervical spine without the use of intravenous contrast. Coronal and sagittal reformatted images were created and reviewed. Radiation dose: Total exam DLP = 423.74 mGy-cm. This CT exam was performed using one or more of the following dose reduction techniques: Automated exposure control, adjustment of the mA and/or kV according to patient size, and/or use of iterative reconstruction technique. FINDINGS: VERTEBRAE: There is straightening of the cervical spine with loss of normal cervical lordosis. Vertebral height is normal. There is no acute fracture or traumatic anterior listhesis. Craniocervical junction is normal. The atlantoaxial joint is normal. DISCS/SPINAL CANAL/NEURAL FORAMINA: There is mild multilevel degenerative disc disease due to combination of disc osteophyte complexes, uncovertebral joint hypertrophy and multilevel facet arthropathy without spinal canal stenosis. PARASPINAL SOFT TISSUES: Unremarkable. OTHER FINDINGS: None. IMPRESSION: No acute fracture or traumatic anterior listhesis. Straightening of the cervical spine may be positional or related to muscle spasm. A preliminary report was provided by [facility].
--- NOTE | 2018-09-29 09:52 | RAD ---
PROCEDURE: Radiographs of the left great toe. TECHNIQUE:: AP radiograph of the left foot, with oblique and lateral view of the left great toe. 3 view obtained. COMPARISON: None. FINDINGS: BONES: There is diffuse bone demineralization. There is no acute displaced fracture or bone destruction. Bone alignment is normal. JOINTS: Mild degenerative osteoarthrosis at the 1st MTP joint. SOFT TISSUES: Normal. OTHER FINDINGS: None. IMPRESSION: No acute displaced fracture or dislocation.
--- NOTE | 2018-09-29 09:53 | RAD ---
Date of service: 09/28/2018 PROCEDURE: Left Knee Radiographs. HISTORY: Pain. COMPARISON: None. TECHNIQUE: 3 views obtained. FINDINGS: BONES: Bone alignment and mineralization are normal. There is no acute displaced fracture or bone destruction. JOINTS: There is mild tricompartmental degenerative osteoarthrosis with reduced joint spaces, marginal osteophytes and tibial spiking, worse in the medial compartment. JOINT EFFUSION: None. OTHER FINDINGS: None. IMPRESSION: No acute displaced fracture or dislocation. Mild tricompartmental degenerative osteoarthrosis, worse in the medial compartment.
--- NOTE | 2018-09-29 10:36 | RAD ---
Date of service: 09/28/2018 PROCEDURE: Radiographs of the Chest and Left Ribs. HISTORY: injury post fall COMPARISON: None available. TECHNIQUE: Frontal radiograph of the chest and multiple oblique radiographs of the left ribs were obtained. 4 views obtained. FINDINGS: LEFT RIBS: No fracture or focal lesion visualized. LUNGS: Clear. PLEURA: No pneumothorax or pleural fluid. CARDIOVASCULAR: Normal cardiac size. No pulmonary vascular congestion. No aortic atherosclerotic calcification present OTHER FINDINGS: None. IMPRESSION: Unremarkable radiographs of the chest and left ribs. No left rib fracture.
== END 2018-09-28 22:35 | disposition home or self-care (01) ==
LOC: EDBD → ED 19:32
DX: S16.1XXA Strain of muscle, fascia and tendon at neck level, initial encounter (principal); S20.212A Contusion of left front wall of thorax, initial encounter; S80.02XA Contusion of left knee, initial encounter; S90.112A Contusion of left great toe without damage to nail, initial encounter; W01.0XXA Fall on same level from slipping, tripping and stumbling without subsequent striking against object, initial encounter; Y93.01 Activity, walking, marching and hiking

== ENCOUNTER 2018-10-28 14:57 | Observation (INO) | payer MEDICARE ==
[2018-10-28 15:10] VITALS: BMI 34.1
[2018-10-28 16:21] LABS: BASO # 0.03 K/mm3 (0.0-2.0); BASO % 0.4 % (0.0-3.0); EOS # 0.2 (0.0-0.7); EOS % 3.3 % (1.5-5.0); HEMOGLOBIN 13.1 g/dL (12.0-16.0); LYMPH # 2.9 (1.2-3.4); LYMPH % 42.2 % (22.0-35.0); MEAN CELL VOLUME 83.2 fl (80.0-105.0); MEAN CORPUSCULAR HEMOGLOBIN 26.6 pg (25.0-35.0); MEAN PLATELET VOLUME 11.1 fl (7.0-11.0); MONO # 0.5 (0.1-0.6); MONO % 7.7 % (1.0-6.0); RBC 4.93 10^6/uL (3.5-6.1); RED CELL DISTRIBUTION WIDTH 14.9 % (11.5-14.5); WHITE BLOOD COUNT 6.9 10^3/uL (4.5-11.0)
--- NOTE | 2018-10-28 16:27 | RAD ---
Date of service: 10/28/2018 HISTORY: chest pain COMPARISON: 09/28/2018. FINDINGS: LUNGS: The lungs are well inflated and clear. PLEURA: No pleural effusions or pneumothorax. CARDIOVASCULAR: The heart is normal in size. No aortic atherosclerotic calcifications present. OSSEOUS STRUCTURES: Within normal limits for the patient's age. VISUALIZED UPPER ABDOMEN: Normal. OTHER FINDINGS: None. IMPRESSION: No active pulmonary disease.
[2018-10-28 16:38] LABS: ALB/GLOB RATIO 1.3 (1.1-1.8); ALT/SGPT 21 U/L (7-56); AST/SGOT 24 U/L (14-36); BLOOD UREA NITROGEN 22 mg/dL (7-21); GFR NON-AFRICAN AMERICAN > 60
[2018-10-28 16:46] LABS: B-TYPE NATRIURETIC PEPTIDE 273 pg/mL (0-450); TROPONIN I < 0.01 ng/mL
--- NOTE | 2018-10-28 18:37 | ED PDOC ---
Arrival/HPI - General Chief Complaint: Chest Pain Historian: Patient - History of Present Illness Narrative History of Present Illness (Text): 10/28/18 18:33 68 year old F with pmh of hypertension, hypertension, and chronic venous insufficiency present with intermittent chest pain w/ mild SOB x3-4 days. Patient reports being advised by Dr. Strong, PMD, to present to emergency department for further evaluation. No active shortness of breath. Patient denies any fevers, chills, headache, dizziness, dyspnea on exertion, cough, diaphoresis, abdominal pain, nausea, vomiting, diarrhea, back pain, neck pain, or any other complaint. PMD. Dr. Strong Time/Duration: < week Symptom Onset: Sudden Symptom Course: Unchanged Activities at Onset: Light Context: Home Past Medical History - Provider Review Nursing Documentation Reviewed: Yes Primary Care Provider: Prema Strong - Infectious Disease Hx of Infectious Diseases: None - Tetanus Immunization Tetanus Immunization: Unknown - Reproductive Menopause: Yes - Cardiac Hx Cardiac Disorders: Yes Hx Hypertension: Yes - Pulmonary Hx Respiratory Disorders: No - Neurological Hx Neurological Disorder: No - HEENT Hx HEENT Disorder: Yes Hx Cataracts: Yes (removed 2004) - Renal Hx Renal Disorder: No - Endocrine/Metabolic Hx Endocrine Disorders: No (denies) - Hematological/Oncological Hx Blood Transfusions: No - Integumentary Hx Dermatological Disorder: Yes Hx Cellulitis: Yes Other/Comment: discoloration to left LLE - Musculoskeletal/Rheumatological Hx Arthritis: Yes (OA) - Gastrointestinal Hx Gastrointestinal Disorders: Yes (constipation,gastritis,gerd,pud) Hx Gastritis: Yes Hx Gastroesophageal Reflux: Yes - Genitourinary/Gynecological Hx Genitourinary Disorders: No Hx Reproductive Disorders: No - Psychiatric Hx Psychophysiologic Disorder: No Hx Anxiety: No Hx Depression: No Hx Substance Use: No - Surgical History Hx Cataract Extraction: Yes - Anesthesia Hx Anesthesia: No Hx Anesthesia Reactions: No Hx Malignant Hyperthermia: No - Suicidal Assessment Feels Threatened In Home Enviroment: No Family/Social History - Physician Review Nursing Documentation Reviewed: Yes Family/Social History: Unknown Family HX Smoking Status: Never Smoked Hx Alcohol Use: No Hx Substance Use: No Hx Substance Use Treatment: No Allergies/Home Meds Allergies/Adverse Reactions: Allergies No Known Allergies Allergy (Verified 01/18/18 21:09) Review of Systems - Physician Review All systems were reviewed & negative as marked: Yes - Review of Systems Constitutional: absent: Fevers ENT: absent: Sore Throat, Rhinorrhea, Epistaxis Respiratory: absent: SOB, Cough, Wheezing Cardiovascular: Chest Pain Gastrointestinal: absent: Abdominal Pain, Diarrhea, Nausea, Vomiting, Hematochezia, Hematemesis Genitourinary Female: absent: Dysuria, Hematuria Musculoskeletal: absent: Arthralgias, Back Pain, Neck Pain, Myalgias Skin: absent: Rash, Skin Lesions, Laceration, Abscess, Ulcer, Cellulitis Neurological: absent: Headache, Dizziness, Focal Weakness, Speech Changes, Facial Droop, Disequilibrium Physical Exam Vital Signs Reviewed: Yes Vital Signs Temp Pulse Resp BP Pulse Ox 10/28/18 17:06 98.0 F 57 L 15 159/68 H 95 10/28/18 14:58 97.8 F 62 18 163/75 H 95 Temperature: Afebrile Blood Pressure: Hypertensive Pulse: Regular Respiratory Rate: Normal Appearance: Positive for: Well-Appearing, Non-Toxic, Comfortable Pain Distress: Mild Mental Status: Positive for: Alert and Oriented X 3 - Systems Exam Head: Present: Atraumatic, Normocephalic Pupils: Present: PERRL Extroacular Muscles: Present: EOMI Conjunctiva: Present: Normal Mouth: Present: Moist Mucous Membranes Neck: Present: Normal Range of Motion Respiratory/Chest: Present: Clear to Auscultation, Good Air Exchange. No: Respiratory Distress, Accessory Muscle Use Cardiovascular: Present: Regular Rate and Rhythm, Normal S1, S2. No: Murmurs Abdomen: No: Tenderness, Distention, Peritoneal Signs Back: Present: Normal Inspection Upper Extremity: Present: Normal Inspection. No: Cyanosis, Edema Lower Extremity: Present: Normal Inspection. No: Edema Neurological: Present: GCS=15, CN II-XII Intact, Speech Normal Skin: Present: Warm, Dry, Normal Color. No: Rashes Psychiatric: Present: Alert, Oriented x 3, Normal Insight, Normal Concentration Medical Decision Making ED Course and Treatment: 10/28/18 18:37 Impression: 68 year old F present with intermittent chest pain w/ mild SOB x3-4 days. Patient reports being advised by Dr. Strong, ANAIS, to present to emergency department for further evaluation. No active shortness of breath. Plan: -- EKG -- Aspirin -- Reassess and disposition Prior Visits: Notes and results from previous visits were reviewed. Progress Notes: EKG shows Sinus Bradycardia at 56 BPM with left atrial enlargement Discussed case with Dr. Strong who wants patient admitted to [facility] and accepts patient under service. - Lab Interpretations Lab Results: Troponin I < 0.01 ng/mL 10/28/18 16:00 NT-Pro-B Natriuret Pep 273 pg/mL (0-450) 10/28/18 16:00 Total Bilirubin 0.7 mg/dL (0.2-1.3) 10/28/18 16:00 AST 24 U/L (14-36) 10/28/18 16:00 ALT 21 U/L (7-56) 10/28/18 16:00 Alkaline Phosphatase 84 U/L (38-126) 10/28/18 16:00 Total Protein 7.0 g/dL (5.8-8.3) 10/28/18 16:00 Albumin 4.0 g/dL (3.0-4.8) 10/28/18 16:00 Globulin 3.1 gm/dL 10/28/18 16:00 Albumin/Globulin Ratio 1.3 (1.1-1.8) 10/28/18 16:00 - RAD Interpretation Radiology Orders: 10/28/18 15:28 CHEST PORTABLE [RAD] Stat - Medication Orders Current Medication Orders: Discontinued Medications Aspirin (Aspirin) 325 mg PO STAT STA Stop: 10/28/18 17:06 Last Admin: 10/28/18 17:36 Dose: 325 mg Disposition/Present on Arrival - Present on Arrival Any Indicators Present on Arrival: No History of DVT/PE: No History of Uncontrolled Diabetes: No Urinary Catheter: No History of Decub. Ulcer: No History Surgical Site Infection Following: None - Disposition Have Diagnosis and Disposition been Completed?: Yes Diagnosis: Chest pain Disposition: HOSPITALIZED Disposition Time: 16:00 Condition: STABLE
--- NOTE | 2018-10-28 20:58 | CARD ---
APPROVED REPORT Date of service: 10/28/2018 EKG Measurement Heart [id number] <Conclusion> Sinus bradycardia Possible Left atrial enlargement Borderline ECG
[2018-10-29 07:45] LABS: TROPONIN I < 0.01 ng/mL
[2018-10-29 09:01] LABS: HDL CHOLESTEROL 46 mg/dL (29-60)
[2018-10-29 09:11] LABS: LDL CHOLESTEROL 133 mg/dL (0-129)
[2018-10-29] MEDS ORDERED: methIMAzole 5 MG TAB PO SCH (10:00)
[2018-10-29] MEDS ORDERED: Aminophylline 25 mg/ml Inj ONE (10:42)
--- NOTE | 2018-10-29 12:30 | CON ---
DATE: 10/29/2018 CARDIOLOGY CONSULTATION REASON FOR CONSULTATION: Chest pain, cardiac evaluation. HISTORY OF PRESENT ILLNESS: This is a 68-year-old female with past medical history of hypertension, chronic venous insufficiency, presently complaining of chest pain radiating to the head, radiating to the arm, shoulder, all over the body with mild tenderness. Denies any prior episode of chest pain or dyspnea on exertion or chest pain on exertion. Denies any dizziness, denies any cold sweats or diaphoresis. PAST MEDICAL HISTORY: Significant for hyperthyroidism, hypertension, and generalized body ache and pain. Also past history significant for lower extremity cellulitis, diabetes, DVT of the lower extremity in the past, history of severe venous stasis and dermatitis in the past. REVIEW OF SYSTEMS: As per HPI. CURRENT MEDICATIONS: The patient is taking at home, Tramadol 1 p.o. every six hours, Tapazole 5 mg, Thursday, Thursday, and Thursday; metoprolol presently p.o. every bedtime, Lasix 40 mg, and Colace 100 mg daily. PREVIOUS CARDIAC WORKUP: As follows: The patient had a recent echo on 01/18/2018, that revealed left ventricular hypertrophy, normal LV function, wats-bh-[id number] aortic regurgitation, mild mitral regurgitation, moderate tricuspid regurgitation, RV systolic pressure 55 mmHg. Calculated ejection fraction 61% dated 01/18/2018. PHYSICAL EXAMINATION: As follows; GENERAL: Height 5 feet 4 inches. Weight 199 pounds, body mass index 34.2 kg/sq m. VITAL SIGNS: Temperature afebrile, heart rate 54, blood pressure 137/63. HEENT: PERRLA. Extraocular muscles intact. NECK: Supple. No carotid thyromegaly. CHEST: Clear to auscultation. HEART: S1, S2, regular. ABDOMEN: Soft. EXTREMITIES: Clubbing and cyanosis negative. LABORATORY DATA: EKG shows sinus bradycardia, left atrium enlargement, no acute ST-T changes noted. Blood workup reveals a WBC 61, hemoglobin 13, hematocrit 41, platelet count 179. Chemistry shows sodium 140, potassium 4.2, chloride 102, carbon dioxide 32, anion gap of 13, BUN 22, creatinine 0.8. Troponin 0.01. IMPRESSION: This is a 68-year-old female with past medical history significant for hyperthyroidism, severe hypertension, severe venous stasis, admitted with atypical chest pain, left-sided chest mild tenderness, left arm pain, headache, but given the multiple episodes of coronary artery disease, suggest echo and a stress test. Further recommendation after the stress test. History of pulmonary hypertension, history of chronic obstructive pulmonary disease, history of severe venous stasis, further we will get echo and a stress test, lipid profile, TSH. Further recommendation after the stress test. We will hold troponin and look into the stress test. We will follow with you. Thank you, Dr. Strong, for providing the opportunity in taking care of the patient. ADDENDUM: We will keep her n.p.o. for the stress test and make further recommendations after the stress test. Radha Lloyd MD
[2018-10-29 16:38] VITALS: BP 139/74; PULSE 55; RESP 18; TEMP 98; O2SAT 98
--- NOTE | 2018-10-29 16:53 | CARD ---
APPROVED REPORT Date of service: 10/29/2018 EXAM: Two-dimensional and M-mode echocardiogram with Doppler and color Doppler. INDICATION Chest Pain 2D DIMENSIONS Left Atrium (2D)3.7 (1.6-4.0cm)IVSd1.1 (0.7-1.1cm) LVDd4.2 (3.9-5.9cm)PWd1.4 (0.7-1.1cm) LVDs2.3 (2.5-4.0cm)FS (%) 43.8 % LVEF (%)75.4 (>50%) M-Mode DIMENSIONS Aortic Root3.30 (2.2-3.7cm)Aortic Cusp Exc.1.70 (1.5-2.0cm) Aortic Valve AoV Peak Rmtanrrj595.0cm/Jeremy Peak GR.20mmHg Mitral Valve MV E Mihvzjhf35.1cm/sMV A Iwioikjo383.0cm/sE/A ratio0.5 TDI Lateral E' Peak V8.77cm/sMedial E' Peak V8.58cm/sE/Lateral E'7.2 E/Medial E'7.4 Pulmonary Valve PV Peak Xsoxrghx61.7cm/sPV Peak Grad.3mmHg Tricuspid Valve TR Peak Wfnsyoqf227sz/sRAP [id number] Peak Gr.39mmHg [id number] LEFT VENTRICLE The left ventricle is normal size. There is moderate concentric left ventricular hypertrophy. The left ventricular function is normal. The left ventricular ejection fraction is within the normal range. Ej.Fr: 75%. Tissue Doppler imaging reveals moderate left ventricular diastolic dysfunction. RIGHT VENTRICLE The right ventricle is normal size. ATRIA The left atrium size is normal. The right atrium size is normal. AORTIC VALVE Aortic Valve Leaflets are thickened. Aortic Valve Opening Normal. There is trace aortic regurgitation. MITRAL VALVE The mitral valve is normal in structure. Mitral regurgitation is mild. TRICUSPID VALVE The tricuspid valve is normal in structure. There is mild tricuspid regurgitation. PERICARDIAL EFFUSION There is no pericardial effusion. <Conclusion> The left Ventricle Size Normal. LV Shows Moderate Concenteric Hypertrtophy. Normal LV Systolic Function. Ej.Fr:75%. Tissue Doppler imaging reveals moderate left ventricular diastolic dysfunction. The right ventricle is normal size. The left atrium size is normal. The right atrium size is normal. Aortic Valve Leaflets are thickened. Aortic Valve Opening Normal. There is trace aortic regurgitation. The mitral valve is normal in structure. Mitral regurgitation is mild. The tricuspid valve is normal in structure. There is mild tricuspid regurgitation.RVSP 49mm Hg. Moderate Pulmonary Hypertension. There is no pericardial effusion.
--- NOTE | 2018-10-29 22:09 | CARD ---
APPROVED REPORT Date of service: 10/29/2018 Protocol: LEXISCAN Test Type: Lexiscan Sestamibi Stress Test Attending Physician: Dr. Radha Hill Referring Physician: Dr. Prema Strong Test Indications: Chest Pain Height:5 ft 4 in Weight:199lbs Medications: Cloace, Lasix, Tapazole, Ultram Lopressor Medical History: 68 year old female with ahistory of diabetes, HTN, high cholesterol, arthritis Target HR: 150 bpm Resting ECG: RSR. Resting Heart Rate: 54 bpm Resting Blood Pressure: 158/78mmHg Submaximum (85%): 128 bpm PROCEDURE Pharmacologic stress testing was performed using 0.4mg per 5ml of regadenoson given intravenously over 7-10 seconds. POST EXERCISE Reason for Termination: Protocol completed Target HR: No Max HR: 56 bpm 48% of Maximum Predicted HR: 150 bpm Exercise duration: 00:31 min:sec, 0 Stage Exercise capacity: 1.0METs Max Blood Pressure: 158/78mmHg Blood Pressure response to exercise: normal resting BP - appropriate response Heart Rate response to exercise: appropriate Chest Pain: No, none Angina index: 0 Arrhythmia: No, none ST Change: No, none Deviation: 0 mm INTERPRETATION Stress EKG Conclusion: IV LEXISCAN NUCLEAR STRESS TEST NEGATIVE FOR CHEST PAIN AND NEGATIVE FOR ST-T CHANGES. NUCLEAR SCAN REPORT PENDING. Signed by Radha Hill Electronically Approved: 10/29/2018 11:22:25 EXAM: Myocardial Perfusion STRESS/REST Stress Test Type: Pharmacologic Imaging Protocol The imaging protocol used to acquire images was Stress Tc-99m/rest Tc-99m 1 day Rest Spect myocardial perfusion imaging was performed in supine position 60 minutes following the injection of 30.2 mCi of Tc-99 Myoview. At peak stress, the patient was injected intravenously with 10.9mCi of Tc-99 tetrofosmin after an infusion time of 0 minutes and 10 seconds. Gated Stress Spect was performed 45 minutes after intravenous Tc-99 Myoview injection. The images were gated to evaluate regional wall motion and calculate ventricular ejection fraction.Images were reconstructed using backfilter projection method in short horizontal and verticle long axis. Spect slices were generated. LV Perfusion The quality of the study is good. The left ventricle is normal in size. The right ventricle is unremarkable. The lung uptake is within normal limits. The distribution of tracer reveals normal uptake pattern throughout the LV myocardium on the stress study. The rest myocardial perfusion study shows no significant change. Wall Motion Wall motion study shows good contractility of the left ventricle. LVEF = 75%. Conclusion 1. Normal SPECT myocardial perfusion study. 2. Normal gated wall motion of the left ventricle.
--- NOTE | 2018-10-30 06:58 | DS ---
HISTORY OF PRESENT ILLNESS: This is a 68-year-old female came in with chest pain and bradycardia. She has a past medical history of hypertension, cellulitis, kidney stone, rotator cuff injury, diverticulosis, frequent falls, obesity, hyperkaliemia. Seen patient today at bedside, alert and oriented. Denies chest pain, palpitations, abdominal pain, hematuria, hematochezia, fevers, or chills. The patient is also scheduled to have a stress test today. PHYSICAL EXAMINATION: VITAL SIGNS: Temperature 97.8, pulse rate 54, blood pressure 137/57, respiratory rate 20, and saturating at 95% on room air. GENERAL: The patient appears to be in no acute distress. HEENT: Normocephalic and atraumatic. PERRLA. Mucous membranes moist. RESPIRATORY: Clear to auscultation. No wheeze. No rhonchi. CARDIOVASCULAR: S1 and S2. No JVD. No murmur. No gallop. GASTROINTESTINAL: Abdomen is soft. Positive bowel sounds. No organomegaly. SKIN: Intact. No cyanosis. No edema. NEUROLOGIC: The patient is alert and oriented x3. No cognitive deficits. MEDICATIONS: Colace, Lasix, Tapazole, Lopressor, and Ultram. LABORATORY DATA: White blood cells 6.9, hemoglobin 13.1, hematocrit 41, and platelet count 179. Sodium 142, potassium 4.4, BUN 22, creatinine 0.8, GFR is over 60. Negative troponin. BNP 373. ASSESSMENT AND PLAN: This 68-year-old female came in with chest pain, bradycardia, and stress test today. The patient completed stress test today, results reviewed. No ST changes. Heart rate was appropriate. Blood pressure was appropriate during stress test. We will discharge the patient today with medications at bedside and home medications. We will follow up with the patient in office in 1 to 2 weeks. We will follow up. 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 PRESENT TREATMENT , WILL F/U Willem Sams APN Prema Strong MD [facility] # [id number] MTDMore
--- NOTE | 2018-10-30 15:18 | HP ---
DATE OF EXAM: 10/29/2018 Seen by me and my nurse practitioner on 10/29/2018. CHIEF COMPLAINT: Chest pain. HISTORY OF PRESENT ILLNESS: Ms. Xenia Hall is a 68-year-old lady with history of multiple medical problems, came in my office on 10/28/2018 for chest pain with shortness of breath. I sent her to emergency room. The patient has history of hypertension, chronic renal insufficiency; has intermittent chest pain with shortness of breath from couple of days. I sent the patient to the hospital emergency room, seen by Dr. Hill, grassland conservationist. Echocardiogram done. Stress test done. Cleared for discharge. PAST MEDICAL HISTORY: As above. History of hypertension, cataract removed, history of cellulitis, dislocation of the left lower extremity, constipation and gastritis. FAMILY HISTORY: Father and mother noncontributory. HABITS: Never smoked. No drugs. No ethanol. ALLERGIES: THE PATIENT IS NOT ALLERGIC WITH ANY MEDICATIONS. REVIEW OF SYSTEMS: The patient was seen and examined at the bedside on 10/29/2018, looking comfortable. No fever. No chills. No hematuria. No hematochezia. No headache. No dizziness. No chest pain. No palpitation. Looks comfortable. For further information, see discharge summary of my nurse practitioner dictated on 10/29/2018. The patient was cleared by the grassland conservationist to send home. Follow up with primary care physician. Prema Strong MD
== END 2018-10-29 17:54 | disposition home or self-care (01) ==
LOC: ED 14:57 → ERH 17:05 → 2RSO 20:28
PROVIDERS: ADMIT Internal Medicine; ATTEND Internal Medicine
DX: R07.89 Other chest pain (principal); R00.1 Bradycardia, unspecified; I87.2 Venous insufficiency (chronic) (peripheral); I25.10 Atherosclerotic heart disease of native coronary artery without angina pectoris; E11.9 Type 2 diabetes mellitus without complications; I10 Essential (primary) hypertension; I27.20 Pulmonary hypertension, unspecified; J44.9 Chronic obstructive pulmonary disease, unspecified; Z86.718 Personal history of other venous thrombosis and embolism; Z87.442 Personal history of urinary calculi
CPT/HCPCS: 36415; 71045; 78452; 80053; 80061; 82550; 83036; 83615; 83735; 83880; 84443; 84484; 85025; 93005; 93017; 93306; 99285; A9502; G0378; J2785